=== PATIENT | female | born 1955 | race Caucasian/White ===

== ENCOUNTER 2019-05-02 09:36 | Outpatient (CLI) | payer OTHER, SELFPAY ==
[2019-05-02 10:26] LABS: Alveolar/Arterial O2 Gradient 20.6 mmHg; Base Excess ABG 9.6 mEq/l (+/-2.0); Device ROOM AIR; Fractional Inspired Oxygen 21 %; Modified Allen's Test Pass; Oxygen Content ABG 16.4 %vol (16.0-22.0); Oxygen Saturation ABG 91.5 % (95.0-100.0); Oxyhemoglobin 89.1 % THb (90.0-100.0); PCO2 ABG 56.5 mmHg (35.0-45.0); PO2 ABG 61.5 mmHg (80.0-100.0); PO2 FiO2 Ratio Arterial Blood 2.93 %; Site Drawn LEFT RADIAL; Total Hemoglobin 13.1 g/dL (12.0-18.0); pH ABG 7.422 (7.350-7.450)
--- NOTE | 2019-05-02 15:54 | P.PCNPFT_ITS ---
PFT Interpretation PFT Interpretation: DOS: 05/02/2019 REQUESTING: Dr. Delacruz REASON FOR TESTING: Shortness of breath PULMONARY FUNCTION TESTS The results were reproducible. She was unable to complete lung volumes. Patient did all testing to the best of her ability. Spirometry: Severe decrease in FEV1 41%, FVC 40%, with normal FEV1%. DSH20-58% extremely severely reduced at 20% predicted. There is a significant increase in small airways with bronchodilator, 69% in small airways. THere was a non- statistically significant increase in FEV1 11%. Lung volumes: Not able to be obtained. Diffusion: DLCO is 44%, severely decreased. Flow volume loop: Restrictive pattern. IMPRESSION: Severe restriction based on low FVC 40% and normal FEV1%; lung volumes not obtainable with a small airways pattern. Moderately decreased DLCO. May have mixed restrictive and obstructive processes. ABG on room air: pH 7.422; pCO2 56.5; pO2 61.5; HCO3 36; saturation 91.5%. Hemoglobin 13.1 g/dL. Ann Delacruz MD
== END 2019-05-02 09:37 | disposition home or self-care (01) ==
PROVIDERS: Visit Provider Internal Medicine Critical Care Medicine
DX: J44.9 Chronic obstructive pulmonary disease, unspecified (principal); R94.2 Abnormal results of pulmonary function studies
CPT/HCPCS: 36600; 82805; 94060; 94729

== ENCOUNTER 2020-01-17 06:52 | Outpatient (NON) | payer BC, SELFPAY ==
[2020-01-17 22:15] LABS: SARS-CoV-2 RNA PCR Negative
== END 2020-01-17 06:53 ==
PROVIDERS: PCP Family Medicine; Visit Provider Family Medicine
DX: Z20.828 Contact with and (suspected) exposure to other viral communicable diseases (principal); R52 Pain, unspecified; R50.9 Fever, unspecified; R06.02 Shortness of breath
CPT/HCPCS: 87635; C9803; U0003

== ENCOUNTER 2020-04-05 12:34 | Outpatient (CLI) | payer BC, SELFPAY ==
[2020-04-05 13:16] LABS: Alveolar/Arterial O2 Gradient 19.1 mmHg; Base Excess ABG 7.3 mEq/l (+/-2.0); Fractional Inspired Oxygen 21 %; HCO3 ABG 34.6 mEq/l (22.0-26.0); Oxygen Content ABG 17.1 %vol (16.0-22.0); Oxygen Saturation ABG 88.8 % (95.0-100.0); Oxyhemoglobin 89.5 % THb (90.0-100.0); PO2 ABG 58.1 mmHg (80.0-100.0); PO2 FiO2 Ratio Arterial Blood 2.77 %; Total Hemoglobin 13.6 g/dL (12.0-18.0); pH ABG 7.374 (7.350-7.450)
[2020-04-05 13:18] LABS: PCO2 ABG 60.6 mmHg (35.0-45.0)
[2020-04-05 13:19] LABS: Device ROOM AIR; Modified Allen's Test Pass; Site Drawn RIGHT RADIAL
== END 2020-04-05 12:35 | disposition home or self-care (01) ==
LOC: ANHPFT 12:35
PROVIDERS: PCP Family Medicine; Visit Provider Nurse Practitioner Family
DX: J96.11 Chronic respiratory failure with hypoxia (principal); J96.12 Chronic respiratory failure with hypercapnia
CPT/HCPCS: 36600; 82805

== ENCOUNTER 2020-04-06 14:42 | Outpatient (CLI) | payer BC, SELFPAY ==
--- NOTE | ~2020-04-06 | CT_ITS ---
EXAMINATION: CT lung screening EXAM DATE: 04/06/2020 15:14 INDICATION: Z87.891 - Personal history of nicotine dependence. TECHNIQUE: Spiral low dose CT of the chest without contrast. Axial, coronal and sagittal images were reviewed. The dose-length product (DLP) for this examination was 239.40 mGy-cm. The exposure was t ailored according to patient size (auto mA exposure control), and iterative reconstruction (ASIR) was used as additional dose reduction technique. Comparison is made to prior examination from 12/20/2018. FINDINGS: There is elevated right hemidiaphragm which could indicate paralysis. Subsegmental right b asilar, subsegmental left lower lobe atelectasis. Tracheobronchial tree is patent. There is no med iastinal, hilar or axillary lymphadenopathy. There are no pleural or pericardial effusions. There is no pneumothorax. Heart normal in size. There is mild coronary arterial calcification, arteria l sclerosis. Upper abdomen is unremarkable. There is moderate thoracic spondylosis without osteobla stic or osteolytic lesions identified. There is mild to moderate cervicothoracic scoliosis. IMPRESSION: Lung-RADS category 1, negative (<1%chance of malignancy); recommend continued LDCT screen ing in 1 year. > Reviewed, dictated and finalized at location A. CTICIDE SUPERVISOR IMPRESSION: Lung-RADS category 1, negative (<1%chance of malignancy); recommend continued LDCT screening in 1 year. >
== END 2020-04-06 14:43 | disposition home or self-care (01) ==
PROVIDERS: PCP Family Medicine; Visit Provider Nurse Practitioner Family
DX: Z12.2 Encounter for screening for malignant neoplasm of respiratory organs (principal); Z87.891 Personal history of nicotine dependence
CPT/HCPCS: 71271

== ENCOUNTER 2020-04-12 12:24 | Outpatient (CLI) | payer BC, SELFPAY ==
[2020-04-12 12:45] VITALS: PULSE 87; O2SAT 95
[2020-04-12 12:50] VITALS: PULSE 102; O2SAT 90
[2020-04-12 13:05] VITALS: PULSE 88; O2SAT 94
--- NOTE | 2020-04-12 13:18 | HOMEO2EVAL ---
Home Oxygen Evaluation RC: Home Oxygen (O2) Evaluation Start: 04/12/20 13:10 Freq: Status: Active Protocol: RPE Activity Type Activity Date Activity User E-Sign Co-Sign Detail Recorded Client Recorded Date Recorded By Document 04/12/20 12:45 DJO [email or web address] 04/12/20 13:15 DJO Document 04/12/20 13:05 DJO [email or web address] 04/12/20 13:15 DJO 04/12/20 04/12/20 12:45 13:05 Home O2 Evaluation Test Phase Resting Resting Oxygen Delivery Room Air Room Air Pulse Oximetry (90-100 %) 95 94 Pulse Rate (60-100 beats/min) 87 88 Treatment Charges O2 Evaluation
== END 2020-04-12 12:25 | disposition home or self-care (01) ==
PROVIDERS: PCP Family Medicine; Visit Provider Nurse Practitioner Family
DX: J44.9 Chronic obstructive pulmonary disease, unspecified (principal)
CPT/HCPCS: 94618

== ENCOUNTER → 2020-10-24 11:08 | Outpatient (CLI) | payer MEDICARE, SELFPAY ==
--- NOTE | ~2020-10-24 | CT_ITS ---
EXAMINATION: CT abdomen pelvis w con INDICATION: Abdominal pain and cramping TECHNIQUE: Computed tomographic images of the abdomen and pelvis were obtained after the administrati on of 100 cc of Omnipaque 350 intravenous contrast. The dose-length product (DLP) was 1143.35 mGy-cm. Automated exposure control and iterative reconstruction technique were employed. COMPARISON: 06/13/2015 FINDINGS: Minimal dependent atelectasis is present in the lung bases. The heart size is normal. There is elevation of the right hemidiaphragm. The liver, pancreas, and adrenal glands are normal. Stones are present in the nondistended gallbladder. There is a 3 cm cyst of the left kidney. The right kidne y is unremarkable. A circumaortic left renal vein is noted. No pathologically enlarged abdominal or p elvic lymph nodes are identified. There is no free intraperitoneal gas or evidence of bowel obstructi on. The appendix is normal. There is severe lumbar spondylosis. IMPRESSION: 1. No CT correlate for the patient's symptoms. Reviewed, dictated and finalized at location A.
[2020-10-24 11:31] LABS: Estimated Glomerular Filt Rate 41
== END ==
PROVIDERS: PCP Family Medicine; Visit Provider Physician Assistant
DX: R10.9 Unspecified abdominal pain (principal); R19.8 Other specified symptoms and signs involving the digestive system and abdomen
CPT/HCPCS: 74177; Q9967

== ENCOUNTER 2020-11-28 02:30 | Day surgery (SDC) | payer MEDICARE, SELFPAY ==
[2020-11-14 14:27] VITALS: BMI 42.2
[2020-11-28 09:39] VITALS: BP 151/97; PULSE 94; RESP 24; TEMP 36; O2SAT 98; BMI 41.2
--- NOTE | 2020-11-28 09:40 | WPDHPUPDATE1 ---
History and Physical Update Update Date/Time: 11/28/20 09:40 History and Physical has been reviewed, including an updated exam of the patient. There are NO changes in the patient's condition. Risks, benefits, and alternatives have been discussed and questions answered. Patient agrees to proceed with procedure.
[2020-11-28] MEDS: LACTATED RINGERS 1,000 ML 150 ML IV CONT (09:49)
--- NOTE | 2020-11-28 09:59 | WPDANESEPPF ---
Anes - Initial Pre Proc Eval Procedure: Operation Date: 11/28/20 10:30 Proposed Procedures p Colonoscopy - Jacob Lowery MD Date/Time: 11/28/20 09:59 Surgeon: Jacob Lowery MD Pre Op Diagnosis: abdominal pain, hx of colon polyps Patient Data Age: 65 Gender: F Height: 1.52 m Weight: 95.7 kg Last Vital Signs Temp 96.8 F L 11/28/20 09:39 Pulse 94 11/28/20 09:39 Resp 24 H 11/28/20 09:39 BP 151/97 H 11/28/20 09:39 Pulse Ox 98 11/28/20 09:39 Allergies Allergy/AdvReac Type Severity Reaction Status Date / Time adhesive tape Allergy Mild RASH Verified 11/28/20 09:37 diazepam Allergy Unknown Unknown Verified 11/28/20 09:37 pimecrolimus Allergy Unknown Skin Verified 11/28/20 09:37 Reaction salmeterol Allergy Unknown Unknown Verified 11/28/20 09:37 Home Medications Medication Instructions Recorded Confirmed Type pregabalin 75 mg capsule 150 mg PO BID #120 cap 03/02/19 03/24/19 Rx metoprolol tartrate 100 mg tablet 100 mg PO Q12H #180 tablet 12/16/19 11/14/20 Rx fluticasone propionate 50 2 spray INTRANASAL DAILY PRN #15.8 01/22/20 11/14/20 Rx mcg/actuation nasal ml spray,suspension apixaban 5 mg tablet 5 mg PO BID #180 tablet 04/13/20 11/14/20 Rx theophylline 400 mg 200 mg PO Q12H #90 tablet 07/02/20 11/14/20 Rx tablet,extended release 24 hr montelukast 10 mg tablet See Rx Instructions .ROUTE 07/30/20 11/14/20 Rx .COMPLEX #90 tablet nystatin 100,000 unit/gram topical 1 applic TOPICAL TID #60 g 08/16/20 11/14/20 Rx powder albuterol sulfate 2.5 mg INHALATION TID #270 vial 08/31/20 11/14/20 Rx furosemide 40 mg tablet See Rx Instructions .ROUTE 09/04/20 11/14/20 Rx .COMPLEX #90 tablet nystatin 100,000 unit/gram topical 1 applic TOPICAL BID #30 g 10/15/20 11/14/20 Rx cream triamcinolone acetonide 0.1 % 1 applic TOPICAL BID #80 g 10/15/20 11/14/20 Rx topical ointment budesonide-formoterol HFA 160 2 puff INHALATION Q12H #10.2 gm 10/16/20 11/14/20 Rx mcg-4.5 mcg/actuation aerosol inhaler pantoprazole 40 mg tablet,delayed See Rx Instructions .ROUTE 10/25/20 11/14/20 Rx release .COMPLEX #90 tablet hyoscyamine sulfate 0.125 mg tablet 0.125 mg PO TID PRN #60 tablet 10/29/20 11/14/20 Rx potassium chloride 20 mEq See Rx Instructions .ROUTE 11/06/20 11/14/20 Rx tablet,extended release(part/cryst) .COMPLEX #180 tablet guaifenesin [Mucus Relief ER] 600 mg PO DAILY 11/14/20 11/14/20 History polyethylene glycol 3350 [Miralax] 17 g PO DAILY 11/14/20 11/14/20 History cyclobenzaprine 10 mg tablet See Rx Instructions .ROUTE 11/16/20 Rx .COMPLEX #180 tablet Patient hx anesthesia problems: none Family hx anesthesia problems: none PMFSH Past Medical History Medical History Angina at rest Arthritis Benign positional vertigo Cataracts, bilateral Maturing CHF (congestive heart failure) Diastolic with EF of 55% on last echocardiogram August 2016 Chronic respiratory failure with hypoxia and hypercapnia Chronic respiratory failure with hypoxia, on home O2 therapy Due to right hemidiaphragm paralysis for 11 years, obstructive sleep apnea, PFTs 2012 demonstrating moderate restrictive and severe obstructive disease without bronchodilator response Duodenal ulcer DVT (deep venous thrombosis) Bilateral lower extremity November 2018 GERD (gastroesophageal reflux disease) Hepatic steatosis Hiatal hernia History of esophageal spasm History of paroxysmal supraventricular tachycardia Hypertension IBS (irritable bowel syndrome) Mitral valve prolapse Ovarian cyst Periodontal disease Peripheral neuropathy Pneumonia Pulmonary emboli Extensive acute pulmonary emboli November 2018 Pulmonary hypertension Suggested by CT findings October 2018 Rectal polyp Scoliosis Sinus problem Spinal stenosis Tobacco abuse Type 2 diabetes mellitus UTI (urinary tract infection) Surgical History Surgical History (Reviewed 10/29/20 @ 15:1
[2020-11-28 10:44] VITALS: BP 121/73; PULSE 75; RESP 18; O2SAT 100
[2020-11-28 10:54] VITALS: BP 146/90; PULSE 74; RESP 18; O2SAT 100
[2020-11-28 11:04] VITALS: BP 156/100; PULSE 73; RESP 18; O2SAT 100
== END 2020-11-28 11:18 | disposition home or self-care (01) ==
PROVIDERS: PCP Family Medicine; Visit Provider Internal Medicine Gastroenterology
PROC: 0DJD8ZZ Inspection of Lower Intestinal Tract, Via Natural or Artificial Opening Endoscopic (ICD-10-PCS; CPT 45378; principal; 2020-11-28 10:30)
DX: Z12.11 Encounter for screening for malignant neoplasm of colon (principal); D12.5 Benign neoplasm of sigmoid colon; K57.30 Diverticulosis of large intestine without perforation or abscess without bleeding; R10.84 Generalized abdominal pain; I11.0 Hypertensive heart disease with heart failure; I50.9 Heart failure, unspecified; J96.12 Chronic respiratory failure with hypercapnia; J96.11 Chronic respiratory failure with hypoxia; E11.40 Type 2 diabetes mellitus with diabetic neuropathy, unspecified; Z99.81 Dependence on supplemental oxygen; K21.9 Gastro-esophageal reflux disease without esophagitis; K58.9 Irritable bowel syndrome, unspecified; I34.1 Nonrheumatic mitral (valve) prolapse; Z86.718 Personal history of other venous thrombosis and embolism; Z87.11 Personal history of peptic ulcer disease; Z79.01 Long term (current) use of anticoagulants; Z79.51 Long term (current) use of inhaled steroids; Z87.891 Personal history of nicotine dependence; E66.01 Morbid (severe) obesity due to excess calories; Z68.41 Body mass index [BMI] 40.0-44.9, adult
CPT/HCPCS: 45385; 88305; J2704; J7120

== ENCOUNTER 2021-06-05 12:18 | Outpatient (CLI) | payer MEDICARE, SELFPAY ==
[2021-06-05 12:45] VITALS: PULSE 95; O2SAT 92
[2021-06-05 12:50] VITALS: PULSE 102; O2SAT 86
[2021-06-05 12:55] VITALS: PULSE 105; O2SAT 88
[2021-06-05 13:00] VITALS: PULSE 109; O2SAT 90
[2021-06-05 13:10] VITALS: PULSE 94; O2SAT 91
--- NOTE | 2021-06-05 13:21 | HOMEO2EVAL ---
Evaluation was performed at [facility] Home Oxygen Evaluation RC: Home Oxygen (O2) Evaluation Start: 06/05/21 13:18 Freq: Status: Active Protocol: RPE Activity Type Activity Date Activity User E-Sign Co-Sign Detail Recorded Client Recorded Date Recorded By Document 06/05/21 12:45 DJO [email or web address] 06/05/21 13:21 DJO Document 06/05/21 12:50 DJO [email or web address] 06/05/21 13:21 DJO Document 06/05/21 12:55 DJO [email or web address] 06/05/21 13:21 DJO Document 06/05/21 13:00 DJO [email or web address] 06/05/21 13:21 DJO Document 06/05/21 13:10 DJO [email or web address] 06/05/21 13:21 DJO 06/05/21 06/05/21 06/05/21 12:45 12:50 12:55 Home O2 Evaluation Test Phase Resting Exercise Exercise Oxygen Delivery Room Air Room Air Nasal Cannula Oxygen Flow Rate (L/min) 1 Pulse Oximetry (90-100 %) 92 86 L 88 L Pulse Rate (60-100 beats/min) 95 102 H 105 H Activity Tolerance Ambulation Distance (feet) Ambulation Distance (meters) Treatment Charges O2 Evaluation - Outpatient 06/05/21 06/05/21 13:00 13:10 Home O2 Evaluation Test Phase Exercise Resting Oxygen Delivery Nasal Cannula Room Air Oxygen Flow Rate (L/min) 2 Pulse Oximetry (90-100 %) 90 91 Pulse Rate (60-100 beats/min) 109 H 94 Activity Tolerance Good Ambulation Distance (feet) 500 Ambulation Distance (meters) 152.39 Treatment Charges
== END 2021-06-05 12:19 | disposition home or self-care (01) ==
LOC: ANHPFT 12:21
PROVIDERS: PCP Family Medicine; Visit Provider Internal Medicine Critical Care Medicine
DX: J96.11 Chronic respiratory failure with hypoxia (principal); J96.12 Chronic respiratory failure with hypercapnia; Z87.891 Personal history of nicotine dependence
CPT/HCPCS: 71271; 94618

== ENCOUNTER 2021-06-05 12:25 | Outpatient (CLI) | payer MEDICARE, SELFPAY ==
--- NOTE | ~2021-06-05 | CT_ITS ---
EXAMINATION:CT lung screening DATE: 06/05/2021 13:34 INDICATION: Personal history of nicotine dependence. Smoker who quit 5 years ago with 30 pack year hi story. TECHNIQUE: Computed tomography (CT) of the chest was performed without intravenous contrast. Automate d exposure control and iterative reconstruction technique were employed. The dose-length product (DLP ) was 260.81 mGy-cm. COMPARISON: Chest CT 04/06/2020 FINDINGS: There is chronic marked elevation of right hemidiaphragm. There is mild atelectasis at righ t lung base. There is mild atelectasis in inferior left lung. No pleural effusion. The heart size is normal. No pericardial effusion. Partially visualized is a 3.4 cm cyst in left kidney. There is sever e thoracic spondylosis. There is a chronic mild compression fracture of T3. IMPRESSION: 1. Lung-RADS category 1: Negative. Continue annual screening with noncontrast low-dose chest CT in 12 months. Reviewed, dictated and finalized at location A. NCE MANAGER IMPRESSION: 1. Lung-RADS category 1: Negative. Continue annual screening with noncontrast l ow-dose chest CT in 12 months.
== END 2021-06-05 12:26 | disposition home or self-care (01) ==
LOC: ANHIMG 12:26
PROVIDERS: PCP Family Medicine; Visit Provider Internal Medicine Critical Care Medicine
DX: Z12.2 Encounter for screening for malignant neoplasm of respiratory organs (principal); Z87.891 Personal history of nicotine dependence
CPT/HCPCS: 71271

== ENCOUNTER → 2021-07-24 10:02 | Outpatient (CLI) | payer MEDICARE, SELFPAY ==
--- NOTE | ~2021-07-24 | XR_ITS ---
XR ankle RT min 3V DATE: 07/24/2021 10:14 INDICATION: Right ankle pain TECHNIQUE: 4 views COMPARISON: None FINDINGS: Diffuse osteopenia. Plantar and posterior calcaneal enthesopathy. No fracture or dislocation of the ankle or disruption of the ankle mortise. No periosteal reaction or bone destruction. Osteoarthritic change at the tarsal and tarsometatarsal joints. IMPRESSION: Osteopenia Osteoarthritis intertarsal and tarsometatarsal joints Plantar and posterior calcaneal enthesopathy Reviewed, dictated and finalized at location A.
== END ==
PROVIDERS: PCP Family Medicine; Visit Provider Family Medicine
DX: M85.871 Other specified disorders of bone density and structure, right ankle and foot (principal); M19.071 Primary osteoarthritis, right ankle and foot; M77.31 Calcaneal spur, right foot
CPT/HCPCS: 73610

== ENCOUNTER 2022-01-10 09:10 | Emergency (ER) | payer MEDICARE, SELFPAY ==
--- NOTE | ~2022-01-10 | CT_ITS ---
EXAMINATION: CT abdomen pelvis w con DATE: 01/10/2022 10:53 INDICATION: Abdominal pain. Nausea and vomiting. TECHNIQUE: Computed tomography (CT) of the abdomen and pelvis was performed with 100 mL Omnipaque 350 intravenous contrast. Automated exposure control and iterative reconstruction technique were employe d. The dose-length product was 1700.24 mGy-cm. COMPARISON: CT abdomen and pelvis 10/24/2020 FINDINGS: The visualized portions of the lung bases demonstrate mild atelectasis. There is chronic ma rked elevation of right hemidiaphragm. No pleural effusion. The heart size is normal. No pericardial effusion. The liver, gallbladder, spleen, pancreas, and adrenal glands are normal. There is cortical thinning of the kidneys. There is a 3.1 cm cyst in left kidney. There is diverticulosis of the colon without evidence of diverticulitis. There are no dilated loops of bowel. There is a large volume of s tool in the colon. The appendix is not visualized. There are no pathologically enlarged lymph nodes. There is no free intraperitoneal fluid. There is severe thoracic spondylosis and moderate lumbar spon dylosis. IMPRESSION: 1. Chronic marked elevation of right hemidiaphragm. Reviewed, dictated and finalized at location A.
--- NOTE | ~2022-01-10 | XR_ITS ---
EXAMINATION: XR chest 2V DATE: 01/10/2022 11:33 INDICATION: Chest and abdominal discomfort. TECHNIQUE: Frontal and lateral views of the chest were obtained. COMPARISON: Chest 2 views 03/24/2019, CT abdomen and pelvis 01/10/2022 FINDINGS: There is marked in elevation of right hemidiaphragm. There is mild atelectasis at right maria del rosario g base. No pleural effusion or pneumothorax. The heart size is normal. IMPRESSION: 1. Chronic marked elevation of right hemidiaphragm. 2. Mild atelectasis at right lung base. Reviewed, dictated and finalized at location A.
--- NOTE | 2022-01-10 09:19 | ECG_ITS ---
Measurements Intervals [place] Rate: 70 P: 59 [place]: 153 QRS: 52 QRSD: 130 T: 89 QT: 394 QTc: 427 Interpretive Statements SINUS RHYTHM NONSPECIFIC T-WAVE ABNORMALITY COMPARED TO ECG 03/08/2019 10:00:18 ST AND T ABNORMALITY IS IMPROVED Electronically Signed On 01-10-2022 15:39:22 CDT by Domingo Velazquez M.D.
[2022-01-10 09:23] VITALS: BP 157/87; PULSE 69; RESP 28; TEMP 36.6; O2SAT 98
--- NOTE | 2022-01-10 09:39 | ED.CHESTPAIN ---
HPI - Chest Pain General Chief Complaint: Chest Pain <DEONDRE Sage Last Filed: 01/10/22 17:12> Stated Complaint: abd pain/chest pain <DEONDRE Sage Last Filed: 01/10/22 17:12> Time Seen by Provider: 01/10/22 09:21 <DEONDRE Sage Last Filed: 01/10/22 17:12> Source: patient <DEONDRE Sage Last Filed: 01/10/22 17:12> Mode of arrival: ambulatory <DEONDRE Sage Last Filed: 01/10/22 17:12> Limitations: no limitations <DEONDRE Sage Last Filed: 01/10/22 17:12> History of Present Illness HPI narrative: Patient is a 66 y/o female who presents to the ED with c/o pain in her upper abdomen/lower chest. Patient reports she was woken up from sleep around 2:30 AM this morning with pain diffusely across her upper abdomen/lower chest, wrapping around to her mid back. She states it feels like there is a band around her upper abdomen. She tried taking a Pepcid, which did provide minimal relief. She has not tried anything else for her symptoms. She states she has had similar pain before but never was diagnosed with anything. Denies any nausea, vomiting, but does report having an episode of emesis with coughing earlier this week. Denies any worsening shortness of breath, does have COPD. Denies fever, diarrhea, constipation, dysuria, hematuria. Patient is on Eliquis due to history of PEs. <DEONDRE Sage Last Filed: 01/10/22 17:12> Related Data Home Medications: Home Medications Medication Instructions Recorded Confirmed guaifenesin 600 mg tablet, 600 mg PO DAILY 11/14/20 01/08/22 extended release 12 hr (Mucus Relief ER) polyethylene glycol 3350 17 gram 17 g PO DAILY 11/14/20 01/08/22 oral powder packet (Miralax) cyanocobalamin (vitamin B-12) 2,500 mcg sublingual DAILY 05/14/21 01/08/22 2,500 mcg sublingual tablet (Vitamin B-12) <Cheryl Greene PA-C - Last Filed: 01/10/22 17:12> Allergies/Adverse Reactions: Allergies Allergy/AdvReac Type Severity Reaction Status Date / Time adhesive tape Allergy Mild RASH Verified 01/10/22 09:25 diazepam Allergy Unknown Unknown Verified 01/10/22 09:25 pimecrolimus Allergy Unknown Skin Verified 01/10/22 09:25 Reaction salmeterol Allergy Unknown Unknown Verified 01/10/22 09:25 <Cheryl Greene PA-C - Last Filed: 01/10/22 17:12> Review of Systems Review of Systems: CONSTITUTIONAL: Denies fever, chills, or sweats. CARDIOVASCULAR: Reports pain across lower chest. Denies edema. RESPIRATORY: Reports cough. Denies dyspnea. GASTROINTESTINAL: Reports pain/band across upper abdomen. Denies nausea, vomiting, constipation, or diarrhea. GENITOURINARY: Denies dysuria or hematuria. MUSCULOSKELETAL: Reports pain around to mid back. <Cheryl Greene PA-C - Last Filed: 01/10/22 17:12> All systems reviewed & are unremarkable except as noted in HPI and below <Cheryl Greene PA-C - Last Filed: 01/10/22 17:12> [facility] Past Medical History Medical History: Medical History Angina at rest Arthritis Benign positional vertigo Cataracts, bilateral Maturing CHF (congestive heart failure) Diastolic with EF of 55% on last echocardiogram August 2016 Chronic respiratory failure with hypoxia and hypercapnia Chronic respiratory failure with hypoxia, on home O2 therapy Due to right hemidiaphragm paralysis for 11 years, obstructive sleep apnea, PFTs 2012 demonstrating moderate restrictive and severe obstructive disease without bronchodilator response Duodenal ulcer DVT (deep venous thrombosis) Bilateral lower extremity November 2018 GERD (gastroesophageal reflux disease) Hepatic steatosis Hiatal hernia History of esophageal spasm History of paroxysmal supraventricular tachycardia Hypertension IBS (irritable bowel syndrome) Mitral valve prolapse Ovarian cyst Elis
[2022-01-10 10:00] VITALS: PULSE 61
[2022-01-10 10:17] LABS: Basophils Absolute Auto 0.1 K/mm3 (0.0-0.1); Basophils Percent Auto 0.8 % (0.2-1.2); Eosinophils Absolute Auto 0.3 K/mm3 (0-0.3); Eosinophils Percent Auto 4.1 % (0-4.4); Hematocrit 41.1 % (37.0-47.0); Hemoglobin 12.7 g/dL (12.0-15.0); Immature Granulocyte Absolute 0.03 K/mm3 (0.00-0.031); Immature Granulocyte Percent A 0.4 % (0-0.5); Lymphocytes Absolute Auto 1.52 K/mm3 (0.9-3.2); Lymphocytes Percent Auto 21.5 % (18.3-44.2); Mean Corpuscular HGB Conc 30.9 g/dl (32-36); Mean Corpuscular Hemoglobin 27.8 pg (26-34); Mean Corpuscular Volume 89.9 fl (80-100); Mean Platelet Volume 9.7 fl (7.4-10.4); Monocytes Absolute Auto 0.6 K/mm3 (0.1-0.6); Monocytes Percent Auto 8.6 % (2.6-8.5); Neutrophils Absolute Auto 4.6 K/mm3 (1.3-6.7); Neutrophils Percent Auto 64.6 % (45.5-73.1); Platelet Count Result 251 k/mm3 (150-375); Red Blood Count 4.57 M/mm3 (4.2-5.4); Red Cell Distribution Width 14.8 % (11.5-14.5); White Blood Count 7.1 K/mm3 (4.5-10.0)
[2022-01-10 10:21] LABS: Alanine Aminotransferase 18 U/L (6-35); Albumin Level 4.2 g/dL (3.5-5.1); Alkaline Phosphatase 131 U/L (38-126); Anion Gap 10 mmol/L (8-16); Aspartate Amino Transferase 22 U/L (14-36); Bilirubin,Total 0.6 mg/dL (0.2-1.3); Blood Urea Nitrogen 18 mg/dL (7-17); Calcium 9.4 mg/dL (8.4-10.2); Carbon Dioxide 35 mmol/L (22-30); Chloride 95 mmol/L (98-107); Estimated CRCL calculation 51 ml/min; Estimated Glomerular Filt Rate 55; Glucose 117 mg/dL (65-110); Lipase 57 U/L (23-300); Potassium 4.3 mmol/L (3.4-5.0); Sodium 140 mmol/L (137-145)
[2022-01-10 10:24] LABS: INR 1.4; Partial Thromboplastin Time 30.8 SECONDS (22.3-36.8); Prothrombin Time 16.8 Seconds (11.1-14.7)
[2022-01-10 10:33] LABS: Troponin I < 0.012 ng/mL (0.000-0.034)
[2022-01-10 10:45] VITALS: BP 158/82; PULSE 78; RESP 20; O2SAT 99
[2022-01-10 11:09] LABS: Add Urine Microscopic? YES; Appearance Urine Clear (Clear); Bacteria Urine Trace /hpf; Bilirubin Urine Negative (Negative); Blood Urine Negative (Negative); Color Urine Yellow (Yellow); Glucose Urine UA Negative (Negative); Ketones Urine Negative (Negative); Leukocyte Esterase Ur 2+ LEU/UL (Negative); Mucus Urine Rare /lpf; Nitrate Urine Negative (Negative); Protein Urine Negative (Negative); RBC Urine 0-2 /hpf (0-2); Specific Grav Ur 1.006 (1.001-1.035); Urobilinogen Urine Negative mg/dL (<2.0); WBC Urine 21-30 /hpf
[2022-01-10 11:52] VITALS: BP 167/90; PULSE 76; RESP 20; O2SAT 97
[2022-01-10 13:18] LABS: Troponin I < 0.012 ng/mL (0.000-0.034)
[2022-01-10] MEDS: BELLADONNA ALK/PHENOB ELIX 10 ML, MAG HYDROX/ALUMINUM HYD/SIMETH 30 ML, LIDOCAINE HCL 2... PO (13:50)
[2022-01-10 14:30] VITALS: BP 166/87; PULSE 87; RESP 20; O2SAT 98
== END 2022-01-10 14:31 | disposition home or self-care (01) ==
PROVIDERS: Physician Assistant; Emergency Provider Emergency Medicine
DX: N30.00 Acute cystitis without hematuria (principal); R10.13 Epigastric pain; J44.9 Chronic obstructive pulmonary disease, unspecified; J96.11 Chronic respiratory failure with hypoxia; I50.30 Unspecified diastolic (congestive) heart failure; E11.42 Type 2 diabetes mellitus with diabetic polyneuropathy; I11.0 Hypertensive heart disease with heart failure; I34.1 Nonrheumatic mitral (valve) prolapse; K21.9 Gastro-esophageal reflux disease without esophagitis; K58.9 Irritable bowel syndrome, unspecified; H26.9 Unspecified cataract; Z99.81 Dependence on supplemental oxygen; Z96.651 Presence of right artificial knee joint; Z86.718 Personal history of other venous thrombosis and embolism; Z87.01 Personal history of pneumonia (recurrent); Z86.711 Personal history of pulmonary embolism; Z87.19 Personal history of other diseases of the digestive system; Z87.440 Personal history of urinary (tract) infections; Z87.891 Personal history of nicotine dependence; Z79.01 Long term (current) use of anticoagulants; R94.31 Abnormal electrocardiogram [ECG] [EKG]
CPT/HCPCS: 36415; 71046; 74177; 80053; 81001; 83690; 84484; 85025; 85610; 85730; 87077; 87086; 87186; 93005; 96365; 99284; A9270; J0131; Q9967

== ENCOUNTER 2022-02-05 10:29 | Outpatient (CLI) | payer MEDICARE, SELFPAY ==
[2022-02-05 19:08] LABS: Alanine Aminotransferase 21 U/L (6-35); Albumin Level 4.5 g/dL (3.5-5.1); Alkaline Phosphatase 150 U/L (38-126); Anion Gap 12 mmol/L (8-16); Aspartate Amino Transferase 28 U/L (14-36); Bilirubin,Total 0.6 mg/dL (0.2-1.3); Blood Urea Nitrogen 29 mg/dL (7-17); Calcium 9.7 mg/dL (8.4-10.2); Carbon Dioxide 33 mmol/L (22-30); Chloride 93 mmol/L (98-107); Cholesterol 156 mg/dL (0-200); Estimated Glomerular Filt Rate 55; Glucose 119 mg/dL (65-110); HDL Direct 38 mg/dL; Sodium 138 mmol/L (137-145); Triglycerides 250 mg/dL (<150)
[2022-02-05 19:19] LABS: LDL Cholesterol Direct 50 mg/dL
[2022-02-05 19:29] LABS: Hemoglobin A1C 6.5 % (<5.7)
== END 2022-02-05 10:30 | disposition home or self-care (01) ==
LOC: ANHGOSHLAB 10:34
PROVIDERS: PCP Internal Medicine; Visit Provider Physician Assistant
DX: E78.2 Mixed hyperlipidemia (principal); R73.01 Impaired fasting glucose
CPT/HCPCS: 36415; 80053; 80061; 83036

== ENCOUNTER 2022-02-25 12:33 | Outpatient (CLI) | payer MEDICARE, SELFPAY ==
[2022-02-25 20:39] LABS: Appearance Urine Clear (Clear); Bilirubin Urine Negative (Negative); Blood Urine Trace-intact (Negative); Color Urine Yellow (Yellow); Glucose Urine UA Negative (Negative); Ketones Urine Negative (Negative); Leukocyte Esterase Ur Negative LEU/UL (Negative); Nitrate Urine Positive (Negative); Protein Urine Negative (Negative); Specific Grav Ur 1.015 (1.001-1.035); Urobilinogen Urine 0.2 mg/dL (<2.0); pH Urine 6.5 (5.0-9.0)
[2022-02-25 20:50] LABS: RBC Urine 0-2 /hpf (0-2); Squamous Epithelial Cell Urine Rare /hpf (Few)
[2022-02-25 20:53] LABS: Add Urine Microscopic? YES
== END 2022-02-25 12:34 | disposition home or self-care (01) ==
LOC: ANHGOSHLAB 12:38
PROVIDERS: PCP Emergency Medicine; Visit Provider Emergency Medicine
DX: R30.0 Dysuria (principal)
CPT/HCPCS: 81001

== ENCOUNTER 2022-04-30 12:12 | Outpatient (CLI) | payer MEDICARE, SELFPAY ==
--- NOTE | ~2022-04-30 | XR_ITS ---
EXAMINATION: XR abdomen/kub 1V DATE: 04/30/2022 12:56 INDICATION: Unspecified abdominal pain. TECHNIQUE: A supine view of the abdomen on 2 radiographs was obtained. COMPARISON: CT abdomen and pelvis 01/10/2022 FINDINGS: There are no dilated loops of bowel. There is stool in the right colon. There is a calcifie d fibroid in the pelvis. IMPRESSION: 1. Normal bowel gas pattern. Reviewed, dictated and finalized at location A. MOBILE DAMAGE FIELD APPRAISER
[2022-04-30 14:06] LABS: Appearance Urine Clear (Clear); Bilirubin Urine Negative (Negative); Blood Urine Negative (Negative); Color Urine Yellow (Yellow); Glucose Urine UA Negative (Negative); Ketones Urine Negative (Negative); Leukocyte Esterase Ur 1+ LEU/UL (Negative); Nitrate Urine Negative (Negative); Protein Urine Negative (Negative); Urobilinogen Urine 0.2 mg/dL (<2.0); pH Urine 6.5 (5.0-9.0)
[2022-04-30 14:26] LABS: Mucus Urine Rare /lpf; RBC Urine 0-2 /hpf (0-2); Squamous Epithelial Cell Urine Rare /hpf (Few)
[2022-04-30 14:31] LABS: Add Urine Microscopic? YES
== END 2022-04-30 12:13 | disposition home or self-care (01) ==
PROVIDERS: PCP Emergency Medicine; Visit Provider Nurse Practitioner
DX: R10.9 Unspecified abdominal pain (principal); K59.00 Constipation, unspecified; R14.0 Abdominal distension (gaseous)
CPT/HCPCS: 74018; 81001

== ENCOUNTER → 2022-05-14 11:16 | Outpatient (CLI) | payer MEDICARE, SELFPAY ==
--- NOTE | ~2022-05-14 | US_ITS ---
EXAMINATION: US pelvic complete w TV DATE: 05/14/2022 11:43 INDICATION: D25.9 - Leiomyoma of uterus, unspecified TECHNIQUE: Multiple transabdominal and endovaginal sonographic images of the pelvis were obtained. COMPARISON: 09/05/2005; CT abdomen and pelvis 01/10/2022 and 10/24/2020. FINDINGS: Uterus: 5.2 x 2.9 x 4.1 cm. Endometrial complex measures 5 mm, with a thin collection of endometrial fluid. Right Ovary: Spherical 2.7 cm complex right adnexal mass with areas of shadowing and no detectable va scular flow. Left Ovary: Not visualized. No adnexal mass. There is no free fluid in the pelvis. IMPRESSION: No uterine fibroids detected in this examination. Left ovary not visualized. Complex right adnexal ma ss with areas of shadowing, which may represent dystrophic calcification within the right ovary. Cons ider MR of the pelvis for further evaluation. Reviewed, dictated and finalized at location K. EE GRINDER IMPRESSION: No uterine fibroids detected in this examination. Left ovary not visualized. Co mplex right adnexal mass with areas of shadowing, which may represent dystrophi c calcification within the right ovary. Consider MR of the pelvis for further e valuation.
== END ==
PROVIDERS: PCP Emergency Medicine; Visit Provider Emergency Medicine
DX: D25.9 Leiomyoma of uterus, unspecified (principal)
CPT/HCPCS: 76830; 76856

== ENCOUNTER 2022-06-11 09:49 | Outpatient (CLI) | payer MEDICARE, SELFPAY ==
--- NOTE | ~2022-06-11 | MR_ITS ---
EXAMINATION: MR pelvis wo/w con DATE: 06/11/2022 11:27 INDICATION: Right adnexal mass. Peripelvic pain. TECHNIQUE: Magnetic resonance imaging (MRI) of the pelvis was performed without and with 19 mL MultiH ance intravenous contrast. COMPARISON: Ultrasound pelvis 05/14/2022, CT abdomen and pelvis 01/10/2022 FINDINGS: There are no dilated loops of bowel. There is diverticulosis of the colon without evidence of diverti culitis. The endometrial complex measures 3 mm in thickness, which is normal. The ovaries are normal. There is a 2.6 cm subserosal fibroid on the right posteriorly. There are no pathologically enlarged lymph nodes. There is no free intraperitoneal fluid. There is mild bilateral trochanteric bursitis. IMPRESSION: 1. 2.6 cm uterine fibroid. Reviewed, dictated and finalized at location A. IMPRESSION: 1. 2.6 cm uterine fibroid.
--- NOTE | ~2022-06-11 | CT_ITS ---
CT Scan of the Chest without Contrast: Clinical Indication: Lung cancer screening, nicotine dependence, smoking history Technique: Contiguous sections were acquired throughout the chest without intravenous contrast. Dose reduction technique was used on this scan by utilizing automated exposure control and iterative recon struction technique. The dose-length product (DLP) was 232.89 mGy-cm. COMPARISON: 06/05/2021, 04/06/2020: 12/20/2018 Findings: There is no evidence of any significant mediastinal, hilar or axillary lymphadenopathy. The mediastin al soft tissues appear normal. There is no evidence of pleural or pericardial effusion. Stable left basilar scarring noted. No suspicious pulmonary nodules or infiltrates are noted. Images through the upper abdomen reveal stable elevation of the right hemidiaphragm. Impression: Lungs-RADS 1: Negative. 12 month follow-up screening CT advised. Reviewed, dictated and finalized at [facility]. Impression: Lungs-RADS 1: Negative. 12 month follow-up screening CT advised.
== END 2022-06-11 09:50 | disposition home or self-care (01) ==
PROVIDERS: PCP Emergency Medicine; Visit Provider Nurse Practitioner Family
DX: Z12.2 Encounter for screening for malignant neoplasm of respiratory organs (principal); Z87.891 Personal history of nicotine dependence; N94.89 Other specified conditions associated with female genital organs and menstrual cycle; D25.9 Leiomyoma of uterus, unspecified
CPT/HCPCS: 71271; 72197; A9577

== ENCOUNTER 2022-07-04 00:25 | Day surgery (SDC) | payer MEDICARE, SELFPAY ==
[2022-06-24 14:57] VITALS: BMI 41.0
[2022-07-04 11:33] VITALS: BP 143/80; PULSE 77; RESP 20; TEMP 36.4; O2SAT 97; BMI 41.8
[2022-07-04] MEDS: LACTATED RINGERS 1,000 ML 150 ML IV CONT (11:41)
--- NOTE | 2022-07-04 11:59 | PM.HPGS ---
History of Present Illness History of Present Illness Consent: Risks, benefits, and alternatives have been discussed and questions answered. Patient agrees to proceed with procedure. Chief complaint: bloating Narrative: Odette Olson is a 66 year old female Presents for EGD. Patient complains of abdominal bloating and discomfort. She has rather vague diffuse abdominal pains. Recent ER visit a CT scan revealed a cast calcified fibroid. Previous colonoscopy In 2020 showed benign polyp. Recent imaging studies suggest excess stool in the colon for this reason laxatives have been advised. Patient presents today for EGD. Review of Systems Review of Systems: Review of systems noncontributory. [facility] Past Medical History Medical History (Updated 05/28/22 @ 12:06 by Zo Devi, FITNESS CENTRE MANAGER) Abdominal pain Angina at rest Arthritis Benign positional vertigo Bloating Cataracts, bilateral Maturing CHF (congestive heart failure) Diastolic with EF of 55% on last echocardiogram August 2016 Chronic respiratory failure with hypoxia and hypercapnia Chronic respiratory failure with hypoxia, on home O2 therapy Due to right hemidiaphragm paralysis for 11 years, obstructive sleep apnea, PFTs 2012 demonstrating moderate restrictive and severe obstructive disease without bronchodilator response Constipation Duodenal ulcer DVT (deep venous thrombosis) Bilateral lower extremity November 2018 GERD (gastroesophageal reflux disease) Hepatic steatosis Hiatal hernia History of esophageal spasm History of paroxysmal supraventricular tachycardia Hypertension IBS (irritable bowel syndrome) Irritable bowel syndrome with constipation Mass of right ovary Mitral valve prolapse Ovarian cyst Periodontal disease Peripheral neuropathy Pneumonia Pulmonary emboli Extensive acute pulmonary emboli November 2018 Pulmonary hypertension Suggested by CT findings October 2018 Rectal polyp Scoliosis Sinus problem Spinal stenosis Tobacco abuse Type 2 diabetes mellitus UTI (urinary tract infection) Surgical History Surgical History Branchial cleft cyst Excision of her right-sided brachial cleft cyst 1971 H/O dilation and curettage H/O: section 1976 History of bilateral carpal tunnel release 2005 History of colonoscopy with polypectomy History of right breast biopsy With benign pathology History of total right knee replacement 2009 Family History Family History Mother Hypertension Coronary artery disease COPD (chronic obstructive pulmonary disease) Father Hypertension Coronary artery disease Sibling Hypertension Social History Social History Social History: Patient is . She is currently residing at a halfway facility for rehabilitation. The patient has a 30 pack per year smoking history and quit smoking in 2003. She does not drink alcohol or use illicit substances. Primary care physician: Dr. Christian Garcia Code status: Full code Smoking packs per day: 1 Smoking cigarettes per day: 20.0 Years smoked: 30 Smoking pack-years: 30.00 Smoking status: Former smoker Tobacco type: cigarettes Alcohol intake: current Substance use: never Substance use type: does not use Lack of Transportation: No Lack of Food: Never True Current Housing: I Have Housing Concerned About Future Housing: No Difficulty Paying Gas/Electric Bills: No Difficulty Paying for Meds: No Currently Unemployed: No Education: Trade/Vocational Certificate Difficulty w/ Childcare or Family Care: No Living arrangements: alone Gender identity (if verbalized by the patient): Female Spiritual care concerns: No Agree to blood products: No Meds Home Medications and Allergies Home Medications Medication Instructions Recorded Conf
--- NOTE | 2022-07-04 12:18 | WPDANESEPPF ---
Anes - Initial Pre Proc Eval Procedure: Operation Date: 07/04/22 13:00 Proposed Procedures p Esophagogastroduodenoscopy - Jacob Lowery MD Date/Time: 07/04/22 12:18 Surgeon: Jacob Lowery MD Pre Op Diagnosis: bloating Patient Data Age: 66 Gender: F Height: 1.52 m Weight: 97.1 kg Last Vital Signs Temp 97.6 F 07/04/22 11:33 Pulse 77 07/04/22 11:33 Resp 20 07/04/22 11:33 BP 143/80 H 07/04/22 11:33 Pulse Ox 97 07/04/22 11:33 O2 Del Method Room Air 07/04/22 11:33 Allergies Allergy/AdvReac Type Severity Reaction Status Date / Time fluticasone Allergy Intermediate Other Verified 07/04/22 11:30 [From Advair Diskus] salmeterol Allergy Intermediate Other Verified 07/04/22 11:30 adhesive tape Allergy Mild RASH Verified 07/04/22 11:30 pimecrolimus Allergy Unknown Skin Verified 07/04/22 11:30 Reaction Home Medications Medication Instructions Recorded Confirmed Type fluticasone propionate 50 2 spray intranasal DAILY PRN nasal 01/22/20 06/24/22 Rx mcg/actuation nasal congestion #15.8 mL spray,suspension (Flonase Allergy Relief) polyethylene glycol 3350 17 gram 17 g PO DAILY 11/14/20 06/24/22 History oral powder packet (Miralax) cyanocobalamin (vitamin B-12) 2,500 mcg PO DAILY 05/14/21 06/24/22 History 2,500 mcg sublingual tablet (Vitamin B-12) montelukast 10 mg tablet See Rx Instructions .Route 10/22/21 06/24/22 Rx .COMPLEX #90 tabs pantoprazole 40 mg tablet,delayed See Rx Instructions .Route 10/22/21 06/24/22 Rx release .COMPLEX #90 tabs metoprolol tartrate 100 mg tablet See Rx Instructions .Route 03/13/22 06/24/22 Rx .COMPLEX #180 tabs atorvastatin 10 mg tablet 10 mg PO DAILY #90 tabs 04/18/22 06/24/22 Rx arformoterol 15 mcg/2 mL solution See Rx Instructions .Route 04/25/22 06/24/22 Rx for nebulization .COMPLEX #120 mL budesonide 0.5 mg/2 mL suspension See Rx Instructions .Route 04/25/22 06/24/22 Rx for nebulization .COMPLEX #120 mL cyclobenzaprine 10 mg tablet See Rx Instructions .Route 05/02/22 06/24/22 Rx .COMPLEX #180 tabs potassium chloride 20 mEq See Rx Instructions .Route 05/02/22 06/24/22 Rx tablet,extended release(part/cryst) .COMPLEX #180 tabs albuterol sulfate 2.5 mg/3 mL 2.5 mg (3 mL) inhalation DAILY PRN 05/16/22 06/24/22 Rx (0.083 %) solution for nebulization shortness of breath or wheezing #90 mL apixaban 5 mg tablet (Eliquis) See Rx Instructions .Route 06/02/22 06/24/22 Rx .COMPLEX #60 tabs furosemide 40 mg tablet See Rx Instructions .Route 06/24/22 06/24/22 Rx .COMPLEX #90 tabs guaifenesin 1,200 mg tablet, 1,200 mg PO DAILY 06/24/22 06/24/22 History extended release 12 hr (Mucus-ER MAX) theophylline 400 mg See Rx Instructions .Route 06/24/22 06/24/22 Rx tablet,extended release 24 hr .COMPLEX #90 tabs triamcinolone acetonide 0.1 % 1 applic topical BID PRN Rash 06/24/22 06/24/22 History topical ointment linaclotide 145 mcg capsule 145 mcg PO DAILY 1 month #30 caps 06/25/22 07/04/22 Rx (Linzess) Patient hx anesthesia problems: none Family hx anesthesia problems: none Results Review: All pre-operative results and documents have been reviewed as part of the pre-operative evaluation. [facility] Past Medical History Medical History (Updated 05/28/22 @ 12:06 by Zo Devi, LASHA) Abdominal pain Angina at rest Arthritis Benign positional vertigo Bloating Cataracts, bilateral Maturing CHF (congestive heart failure) Diastolic with EF of 55% on last echocardiogram August 2016 Chronic respiratory failure with hypoxia and hypercapnia Chronic respiratory failure with hypoxia, on home O2 therapy Due to right hemidiaphragm paralysis for 11 years, obstructive sleep apnea, PFTs 2012 demonstrating moderate restrictive and severe obstructive disease without bronchodilator response Constipation Duodenal ulcer DVT (deep venous thrombosis) Bilateral lower extremity November 2018 GERD (gastroes
[2022-07-04 13:19] VITALS: BP 139/76; PULSE 76; RESP 21; O2SAT 92
[2022-07-04 13:29] VITALS: BP 138/86; PULSE 76; RESP 22; O2SAT 94
[2022-07-04 13:39] VITALS: BP 154/98; PULSE 74; RESP 20; O2SAT 97
== END 2022-07-04 13:54 | disposition home or self-care (01) ==
PROVIDERS: PCP Emergency Medicine; Visit Provider Internal Medicine Gastroenterology
PROC: 0DJ08ZZ Inspection of Upper Intestinal Tract, Via Natural or Artificial Opening Endoscopic (ICD-10-PCS; CPT 43235; principal; 2022-07-04 13:00)
DX: R10.84 Generalized abdominal pain (principal); R14.0 Abdominal distension (gaseous); K21.9 Gastro-esophageal reflux disease without esophagitis; I11.0 Hypertensive heart disease with heart failure; I50.30 Unspecified diastolic (congestive) heart failure; J96.12 Chronic respiratory failure with hypercapnia; J96.11 Chronic respiratory failure with hypoxia; K58.1 Irritable bowel syndrome with constipation; I34.1 Nonrheumatic mitral (valve) prolapse; E11.42 Type 2 diabetes mellitus with diabetic polyneuropathy; Z79.51 Long term (current) use of inhaled steroids; Z79.01 Long term (current) use of anticoagulants; Z86.711 Personal history of pulmonary embolism; Z86.718 Personal history of other venous thrombosis and embolism; Z87.891 Personal history of nicotine dependence; E66.01 Morbid (severe) obesity due to excess calories; Z68.41 Body mass index [BMI] 40.0-44.9, adult
CPT/HCPCS: 43239; 87081; J2704; J7120

== ENCOUNTER 2022-08-20 09:03 | Outpatient (CLI) | payer MEDICARE, SELFPAY ==
[2022-08-20 13:10] LABS: Basophils Absolute Auto 0.1 K/mm3 (0.0-0.1); Basophils Percent Auto 0.9 % (0.2-1.2); Eosinophils Absolute Auto 0.3 K/mm3 (0-0.3); Eosinophils Percent Auto 3.9 % (0-4.4); Hematocrit 44.2 % (37.0-47.0); Hemoglobin 13.2 g/dL (12.0-15.0); Immature Granulocyte Absolute 0.02 K/mm3 (0.00-0.031); Immature Granulocyte Percent A 0.2 % (0-0.5); Lymphocytes Percent Auto 21.9 % (18.3-44.2); Mean Corpuscular HGB Conc 29.9 g/dl (32-36); Mean Corpuscular Hemoglobin 26.7 pg (26-34); Mean Corpuscular Volume 89.5 fl (80-100); Mean Platelet Volume 9.7 fl (7.4-10.4); Monocytes Absolute Auto 0.8 K/mm3 (0.1-0.6); Monocytes Percent Auto 9.1 % (2.6-8.5); Neutrophils Absolute Auto 5.3 K/mm3 (1.3-6.7); Platelet Count Result 307 k/mm3 (150-375); Red Blood Count 4.94 M/mm3 (4.2-5.4); Red Cell Distribution Width 14.9 % (11.5-14.5); White Blood Count 8.2 K/mm3 (4.5-10.0)
[2022-08-20 13:26] LABS: Blood Urea Nitrogen 25 mg/dL (7-17); Calcium 9.5 mg/dL (8.4-10.2); Carbon Dioxide > 40 mmol/L (22-30); Chloride 92 mmol/L (98-107); Cholesterol 143 mg/dL (0-200); Estimated Glomerular Filt Rate 50; Glucose 102 mg/dL (65-110); HDL Direct 38 mg/dL; Potassium 4.9 mmol/L (3.4-5.0); Sodium 139 mmol/L (137-145); Triglycerides 205 mg/dL (<150)
[2022-08-20 13:32] LABS: LDL Cholesterol Direct 42 mg/dL
[2022-08-20 13:38] LABS: Hemoglobin A1C 6.4 % (<5.7)
[2022-08-20 13:58] LABS: Platelet Estimate Adequate (Adequate)
[2022-08-20 13:59] LABS: Hypochromasia 1+ (NORMAL); Schistocytes None Seen (NORMAL)
== END 2022-08-20 09:04 | disposition home or self-care (01) ==
LOC: ANHGOSHLAB 09:04
PROVIDERS: PCP Emergency Medicine; Visit Provider Nurse Practitioner Family
DX: E78.2 Mixed hyperlipidemia (principal); I50.33 Acute on chronic diastolic (congestive) heart failure; E11.9 Type 2 diabetes mellitus without complications; F33.9 Major depressive disorder, recurrent, unspecified; K58.9 Irritable bowel syndrome, unspecified; R06.02 Shortness of breath; E66.09 Other obesity due to excess calories; M79.7 Fibromyalgia
CPT/HCPCS: 36415; 80048; 80061; 83036; 84443; 85025

== ENCOUNTER 2022-08-20 10:23 | Outpatient (CLI) | payer MEDICARE, SELFPAY ==
--- NOTE | ~2022-08-20 | CT_ITS ---
EXAMINATION: CT abdomen pelvis w con DATE: 08/20/2022 11:13 INDICATION: Left lower quadrant pain TECHNIQUE: Computed tomography (CT) of the abdomen and pelvis was performed with 100 cc Omnipaque 350 intravenous contrast. The dose-length product was 1370.36 mGy-cm. Automated exposure control and ite rative reconstruction technique were employed. COMPARISON: CT dated 01/10/2022 FINDINGS: There is right lower lobe airspace consolidation, most likely compressive atelectasis secon thierry to elevated diaphragm. There are left renal parapelvic cysts. Fatty infiltration of the liver. M ild atherosclerosis. No aneurysm. No lymphadenopathy. Colonic diverticulosis without evidence for acu te diverticulitis. The spleen, pancreas, adrenal glands are unremarkable. No free air or free fluid. Heart size normal. Elevated right diaphragm, suspicious for phrenic nerve paralysis. There is moderat e lower thoracic and lumbar spondylosis. IMPRESSION: 1. Chronic elevation the right diaphragm with underlying compressive atelectasis. 2: No acute abdominal abnormality. Reviewed, dictated and finalized at location B. IMPRESSION: 1. Chronic elevation the right diaphragm with underlying compressive atelectasi s. 2: No acute abdominal abnormality.
[2022-08-20 11:05] LABS: Estimated Glomerular Filt Rate 45
== END 2022-08-20 10:24 | disposition home or self-care (01) ==
PROVIDERS: PCP Emergency Medicine; Visit Provider Nurse Practitioner
DX: R10.32 Left lower quadrant pain (principal)
CPT/HCPCS: 36415; 74177; 80048; 80061; 83036; 84443; 85025; Q9967

== ENCOUNTER → 2022-09-03 11:18 | Outpatient (CLI) | payer MEDICARE, SELFPAY ==
--- NOTE | ~2022-09-03 | MM_ITS ---
EXAMINATION: MM screening izabela BI w sami HISTORY: Screening TECHNIQUE: Craniocaudal and mediolateral oblique 3-D tomosynthesis images were obtained and synthetic 2-D images were generated. CAD analysis was submitted and interpreted. COMPARISON: 11/18/2017 BREAST PARENCHYMAL COMPOSITION: There are scattered areas of fibroglandular density.. FINDINGS: There is no evidence of suspicious mass, calcification, or architectural distortion to sugg est malignancy in either breast. There has been no suspicious interval change. IMPRESSION: 1. No mammographic evidence of malignancy. 2. Recommend routine screening mammography in one year. BI-RADS Category 1: Negative Reviewed, dictated and finalized at location A.
== END ==
PROVIDERS: PCP Emergency Medicine; Visit Provider Emergency Medicine
DX: Z12.31 Encounter for screening mammogram for malignant neoplasm of breast (principal)
CPT/HCPCS: 77063; 77067

== ENCOUNTER 2023-01-26 12:36 | Outpatient (CLI) | payer MEDICARE, SELFPAY ==
[2023-01-26 13:15] VITALS: PULSE 85; O2SAT 98
[2023-01-26 13:17] VITALS: PULSE 86; O2SAT 94
[2023-01-26 13:19] VITALS: PULSE 96; O2SAT 95
[2023-01-26 13:23] LABS: Alveolar/Arterial O2 Gradient 16.7 mmHg; Base Excess ABG 6.8 mEq/l (+/-2.0); Fractional Inspired Oxygen 21 %; HCO3 ABG 34.1 mEq/l (22.0-26.0); Oxygen Content ABG 18.8 %vol (16.0-22.0); Oxygen Saturation ABG 90.4 % (95.0-100.0); Oxyhemoglobin 90.4 % THb (90.0-100.0); PCO2 ABG 59.8 mmHg (35.0-45.0); PO2 ABG 61.4 mmHg (80.0-100.0); PO2 FiO2 Ratio Arterial Blood 2.92 %; Site Drawn LEFT RADIAL; Total Hemoglobin 14.8 g/dL (12.0-18.0); pH ABG 7.374 (7.350-7.450)
[2023-01-26 13:24] LABS: Device ROOM AIR; Modified Allen's Test Pass
--- NOTE | 2023-01-26 13:31 | HOMEO2EVAL ---
Evaluation was performed at [facility] Home Oxygen Evaluation RC: Home Oxygen (O2) Evaluation Start: 01/26/23 13:29 Freq: Status: Active Protocol: RPE Activity Type Activity Date Activity User E-sign Co-sign Detail Recorded Client Recorded Date Recorded By Document 01/26/23 13:15 KRM [email or web address] 01/26/23 13:30 KRM Document 01/26/23 13:17 KRM [id number] 01/26/23 13:30 KRM Document 01/26/23 13:19 KRM [email or web address] 01/26/23 13:30 KRM 01/26/23 01/26/23 01/26/23 13:15 13:17 13:19 Home O2 Evaluation [Oxygen] -Test Phase Resting Exercise Exercise -Oxygen Delivery Room Air Room Air Room Air [Pulse Oximetry] -Pulse Oximetry (90-100 %) 98 94 95 [Pulse Rate] -Pulse Rate (60-100 beats/min) 85 86 96 [Evaluation] -Activity Tolerance Fair Fair [Exercise] -Ambulation Distance (feet) 200 -Ambulation Distance (meters) 60.95 [Charges] -Treatment Charges O2 Evaluation - Outpatient
== END 2023-01-26 12:37 | disposition home or self-care (01) ==
LOC: ANHPFT 12:38
PROVIDERS: PCP Emergency Medicine; Visit Provider Nurse Practitioner Family
DX: J96.11 Chronic respiratory failure with hypoxia (principal); J96.12 Chronic respiratory failure with hypercapnia; J96.21 Acute and chronic respiratory failure with hypoxia; J96.22 Acute and chronic respiratory failure with hypercapnia
CPT/HCPCS: 36600; 82805; 94618

== ENCOUNTER → 2023-02-24 12:12 | Outpatient (CLI) | payer MEDICARE, SELFPAY ==
--- NOTE | ~2023-02-24 | XR_ITS ---
XR chest 2V 02/24/2023 12:39 Indication: Acute lower respiratory infection Procedure: PA and lateral views the chest Comparison: Comparison to multiple prior studies sequentially, with oldest reviewed study dated 12/20. Findings: Chronic elevation the right diaphragm suggesting phrenic nerve paralysis. Moderate gaseous distention of the colon beneath the right diaphragm. Right basilar atelectasis. Cardiomegaly. No sign ificant effusion. No edema or pneumothorax. No acute osseous abnormality. Impression: 1: Right basilar atelectasis with chronic elevation of the right diaphragm, suspicious for phrenic ne rve paralysis. Reviewed, dictated and finalized at location L. AL SPRING WINDER Impression: 1: Right basilar atelectasis with chronic elevation of the right diaphragm, ursula picious for phrenic nerve paralysis.
== END ==
PROVIDERS: PCP Emergency Medicine; Visit Provider Emergency Medicine
DX: J22 Unspecified acute lower respiratory infection (principal); R91.8 Other nonspecific abnormal finding of lung field
CPT/HCPCS: 71046

== ENCOUNTER 2023-03-18 10:06 | Outpatient (CLI) | payer MEDICARE, SELFPAY ==
--- NOTE | ~2023-03-18 | CT_ITS ---
CT Scan of the Chest without Contrast: Clinical Indication: Shortness of breath Technique: Contiguous sections were acquired throughout the chest without intravenous contrast. Dose reduction technique was used on this scan by utilizing automated exposure control and iterative recon struction technique. The dose-length product (DLP) was 440.85 mGy-cm. COMPARISON: 06/11/2022 Findings: There is no evidence of any significant mediastinal, hilar or axillary lymphadenopathy. The mediastin al soft tissues appear normal. There is no evidence of pleural or pericardial effusion. There is stable elevation of the right hemidiaphragm with minimal right basilar atelectasis. Lungs ar e otherwise clear. Images through the upper abdomen reveal no abnormalities. Impression: No acute abnormality. Stable elevation right hemidiaphragm. Reviewed, dictated and finalized at [facility]. POT MAN Impression: No acute abnormality. Stable elevation right hemidiaphragm.
[2023-03-18 11:07] LABS: Basophils Absolute Auto 0.1 K/mm3 (0.0-0.1); Basophils Percent Auto 0.8 % (0.2-1.2); Eosinophils Absolute Auto 0.3 K/mm3 (0-0.3); Eosinophils Percent Auto 5.6 % (0-4.4); Hematocrit 44.6 % (37.0-47.0); Hemoglobin 13.6 g/dL (12.0-15.0); Immature Granulocyte Absolute 0.02 K/mm3 (0.00-0.031); Immature Granulocyte Percent A 0.3 % (0-0.5); Lymphocytes Absolute Auto 1.16 K/mm3 (0.9-3.2); Mean Corpuscular HGB Conc 30.5 g/dl (32-36); Mean Corpuscular Hemoglobin 27.6 pg (26-34); Mean Corpuscular Volume 90.5 fl (80-100); Mean Platelet Volume 9.9 fl (7.4-10.4); Monocytes Absolute Auto 0.5 K/mm3 (0.1-0.6); Monocytes Percent Auto 8.7 % (2.6-8.5); Neutrophils Percent Auto 65.6 % (45.5-73.1); Platelet Count Result 226 k/mm3 (150-375); Red Blood Count 4.93 M/mm3 (4.2-5.4); Red Cell Distribution Width 14.6 % (11.5-14.5); White Blood Count 6.1 K/mm3 (4.5-10.0)
[2023-03-18 11:24] LABS: Hemoglobin A1C 6.9 % (<5.7)
[2023-03-18 11:27] LABS: Alanine Aminotransferase 15 U/L (6-35); Albumin Level 4.1 g/dL (3.5-5.1); Alkaline Phosphatase 129 U/L (38-126); Aspartate Amino Transferase 23 U/L (14-36); Bilirubin,Total 0.9 mg/dL (0.2-1.3); Blood Urea Nitrogen 12 mg/dL (7-17); Calcium 9.9 mg/dL (8.4-10.2); Carbon Dioxide > 40 mmol/L (22-30); Chloride 93 mmol/L (98-107); Estimated Glomerular Filt Rate 55; Glucose 124 mg/dL (65-110); Sodium 137 mmol/L (137-145)
== END 2023-03-18 10:07 | disposition home or self-care (01) ==
PROVIDERS: PCP Emergency Medicine; Visit Provider Emergency Medicine
DX: R06.02 Shortness of breath (principal); R53.83 Other fatigue; E11.9 Type 2 diabetes mellitus without complications; J22 Unspecified acute lower respiratory infection; R05.9 Cough, unspecified
CPT/HCPCS: 36415; 71250; 80053; 83036; 84443; 85025

== ENCOUNTER 2023-04-02 12:31 | Outpatient (CLI) | payer MEDICARE, SELFPAY ==
--- NOTE | 2023-04-02 13:26 | ECHO_ITS ---
Patient Info Name: Odette Olson Age: 67 years : 1955 Gender: Female Ht: 60 in Wt: 206 lbs BSA: 2.04 m2 HR: 95 bpm BP: 126 / 70 mmHg Technical Quality: Poor Exam Date: 04/02/2023 2:43 PM Exam Location: Echo Lab Patient Status: Outpatient Admit Date: 04/02/2023 Staff Ordering Physician: Maxx Paredes MD Reprographics Technician: Kerri Moraes RCS Attending Provider: Maxx Paredes MD Referring Physician: Reggie ZAMORA; Exam Type: CA echo doppler color flow Study Info Indications R06.02 - Shortness of breath Complete two-dimensional, color flow and Doppler transthoracic echocardiogram is performed with contrast to opacify the left ventricle and to improve the deliniation of the left ventricle endocardial borders. Contrast/Agitated Saline Contrast/Ag. Saline: Definity Amount: 1.00 ml Existing IV Access: No IV Access Condition: patent with no signs of infiltration New IV Access: Dorsum of Hand and Right Site Condition: No extravasation, Site dressing applied and IV removed Reason for Poor Study: patient body habitus Summary 1. Technically difficult study with limited views. 2. Left ventricular chamber dimension is normal. 3. Left ventricular systolic function is hyperdynamic, estimated at >70%. 4. There is mildly increased left ventricular wall thickness. 5. The left ventricular diastolic function is grade I diastolic dysfunction. 6. Right ventricular systolic function is normal. 7. There is trace mitral valve regurgitation. 8. There is trace tricuspid valve regurgitation. 9. There is small anterior pericardial effusion. Left Ventricle Left ventricular chamber dimension is normal. Left ventricular systolic function is hyperdynamic, estimated at >70%. There is mildly increased left ventricular wall thickness. The left ventricular diastolic function is grade I diastolic dysfunction. Right Ventricle Right ventricular chamber dimension is not well visualized. Right ventricular systolic function is normal. Left Atria Left atrial chamber dimension is normal. Right Atria Right atrial chamber dimension is not well visualized. Atrial Septum Intact interatrial septum visualized by color flow imaging. Aortic Valve The aortic valve is not well visualized. There is no aortic valve stenosis. There is no aortic valve regurgitation. Pulmonic Valve The pulmonic valve is not well visualized. Mitral Valve There is trace mitral valve regurgitation. Tricuspid Valve There is trace tricuspid valve regurgitation. Pericardium/Pleural The pericardium appears epicardial fat pad. There is small anterior pericardial effusion. Inferior Vena Cava Inferior vena cava is not well visualized. Aorta The aortic root size at the sinus of Valsalva is normal. Left Ventricular Outflow Tract Name Value Normal LVOT 2D LVOT Diameter 2.0 cm LVOT Doppler LVOT Peak Gradient 6 mmHg LVOT Mean Gradient 3 mmHg LVOT VTI 23 cm LVOT VTI/AV VTI Ratio 0.8 LVOT Stroke Volume 74 ml Pulmonic Valve
[2023-04-02 13:30] LABS: Alveolar/Arterial O2 Gradient 25.2 mmHg; Base Excess ABG 6.5 mEq/l (+/-2.0); Fractional Inspired Oxygen 21 %; HCO3 ABG 32.5 mEq/l (22.0-26.0); Oxygen Content ABG 19.1 %vol (16.0-22.0); Oxygen Saturation ABG 92.1 % (95.0-100.0); Oxyhemoglobin 91.8 % THb (90.0-100.0); PCO2 ABG 51.5 mmHg (35.0-45.0); PO2 ABG 62.9 mmHg (80.0-100.0); Total Hemoglobin 14.8 g/dL (12.0-18.0); pH ABG 7.418 (7.350-7.450)
[2023-04-02 13:31] LABS: Device ROOM AIR; Modified Allen's Test Pass; Site Drawn RIGHT RADIAL
[2023-04-02] MEDS: PERFLUTREN LIPID MICROSPHERES 1.5 ML VIAL DILUTED TO 10 ML TOTAL VOLUME IV PUSH (14:02)
--- NOTE | 2023-04-02 15:41 | IVDEFINITY ---
Prior to administration of IV Definity the patient was educated on the risks and benefits of the imaging enhancing agent including potential adverse side effects. The patient verbalized understanding. Allergies were verified. No exclusion criteria were identified and at least one of the following inclusion criteria were met: 1) physician request, 2) patient technically difficult to image (per the [place] [employer]chocardi[employer] guidelines of two or more segments not discernable within the apical view), or 3) questionable left ventricular function. ?
== END 2023-04-02 12:32 | disposition home or self-care (01) ==
LOC: ANHPFT 12:32
PROVIDERS: PCP Emergency Medicine; Visit Provider Emergency Medicine
DX: R06.02 Shortness of breath (principal); J44.1 Chronic obstructive pulmonary disease with (acute) exacerbation
CPT/HCPCS: 36600; 82805; C8929; Q9957

== ENCOUNTER 2023-05-21 17:26 | Emergency (ER) | payer MEDICARE, SELFPAY ==
--- NOTE | ~2023-05-21 | XR_ITS ---
EXAMINATION: XR ankle RT min 3V DATE: 05/21/2023 18:36 INDICATION: Right ankle pain. Fall. TECHNIQUE: 3 views of right ankle were obtained. COMPARISON: Right ankle radiographs 07/24/2021 FINDINGS: Bone alignment is normal. No fracture. There is moderate midfoot osteoarthritis. There are enthesophytes at the posterior and plantar aspects of calcaneal tuberosity. IMPRESSION: 1. Moderate midfoot osteoarthritis. Reviewed, dictated and finalized at location E. E LEAD GRINDER
--- NOTE | ~2023-05-21 | XR_ITS ---
EXAMINATION: XR knee LT min 4V DATE: 05/21/2023 18:36 INDICATION: Left knee pain. Fall. TECHNIQUE: 4 views of left knee were obtained. COMPARISON: None. FINDINGS: Bone alignment is normal. There is a nondisplaced fracture of lateral aspect of patella. Th ere is moderate osteoarthritis of medial compartment and mild osteoarthritis of lateral and patellofe moral compartments. There is a large knee joint effusion. IMPRESSION: 1. Nondisplaced fracture of lateral aspect of patella. 2. Moderate left knee osteoarthritis. 3. Large knee joint effusion. Reviewed, dictated and finalized at location E. ROLLING MACHINE SETTER
[2023-05-21 17:42] VITALS: BP 140/65; PULSE 81; RESP 20; TEMP 36.2; O2SAT 95
[2023-05-21 18:47] VITALS: BP 141/73; PULSE 83; RESP 18; O2SAT 93
--- NOTE | 2023-05-21 18:51 | ED.FALL ---
HPI - Fall General Chief Complaint: Fall Stated Complaint: Fall, left knee/right ankle pain Time Seen by Provider: 05/21/23 18:30 Source: patient Mode of arrival: EMS Limitations: no limitations History of Present Illness HPI Narrative: Patient is a 67-year-old female who presents to the ED via EMS with report of a fall. Patient reports she was walking to go get her mail and stepped down her stairs into her garage when she slipped and fell. She landed on her knees, with the majority of her weight on her left knee. She hit her head against a refrigerator. Denied LOC. She was unable to get up off the ground or bear weight on her left leg due to pain, so EMS was called. C/o severe pain to L knee. Also c/o pain to R ankle. Believes she twisted her ankle. Denies headache, dizziness, lightheadedness, chest pain, shortness of breath, neck or back pain, vision changes, nausea, vomiting, numbness. Patient is on Eliquis d/t hx dvt. Related Data Home Medications Medication Instructions Recorded Confirmed polyethylene glycol 3350 17 gram 17 g PO DAILY 11/14/20 05/20/23 oral powder packet (Miralax) cyanocobalamin (vitamin B-12) 2,500 mcg PO DAILY 05/14/21 05/20/23 2,500 mcg sublingual tablet (Vitamin B-12) Allergies Allergy/AdvReac Type Severity Reaction Status Date / Time fluticasone Allergy Intermediate Other Verified 05/21/23 17:37 [From Advair Diskus] salmeterol Allergy Intermediate Other Verified 05/21/23 17:37 adhesive tape Allergy Mild RASH Verified 05/21/23 17:37 pimecrolimus Allergy Unknown Skin Verified 05/21/23 17:37 Reaction Review of Systems Review of Systems: CONSTITUTIONAL: Denies fever, chills, or sweats. ENT: Denies vision changes. CARDIOVASCULAR: Denies chest pain RESPIRATORY: Denies dyspnea. GASTROINTESTINAL: Denies abdominal pain, nausea, vomiting. MUSCULOSKELETAL: See HPI. NEUROLOGIC: See HPI. All systems reviewed & are unremarkable except as noted in HPI and below PMFSH Past Medical History Medical History Abdominal pain Angina at rest Arthritis Benign positional vertigo Bloating Cataracts, bilateral Maturing CHF (congestive heart failure) Diastolic with EF of 55% on last echocardiogram August 2016 Chronic respiratory failure with hypoxia and hypercapnia Chronic respiratory failure with hypoxia, on home O2 therapy Due to right hemidiaphragm paralysis for 11 years, obstructive sleep apnea, PFTs 2012 demonstrating moderate restrictive and severe obstructive disease without bronchodilator response Constipation Duodenal ulcer DVT (deep venous thrombosis) Bilateral lower extremity November 2018 GERD (gastroesophageal reflux disease) Hepatic steatosis Hiatal hernia History of esophageal spasm History of paroxysmal supraventricular tachycardia Hypertension IBS (irritable bowel syndrome) Irritable bowel syndrome with constipation Mass of right ovary Mitral valve prolapse Ovarian cyst Pain, abdominal, LLQ Periodontal disease Peripheral neuropathy Pneumonia Pulmonary emboli Extensive acute pulmonary emboli November 2018 Pulmonary hypertension Suggested by CT findings October 2018 Rectal polyp Scoliosis Sinus problem Spinal stenosis Tobacco abuse Type 2 diabetes mellitus UTI (urinary tract infection) Surgical History Surgical History Branchial cleft cyst Excision of her right-sided brachial cleft cyst 1971 H/O dilation and curettage H/O: section 1976 History of bilateral carpal tunnel release 2005 History of colonoscopy with polypectomy History of right breast biopsy With benign pathology History of total right knee replacement 2009 Family History Family History Mother Hypertension Coronary artery disease COPD (chronic obstructive pulmonary disease) Father Hyperten
[2023-05-21] MEDS: ACETAMINOPHEN 500 MG TABLET 1000 MG PO (20:26)
[2023-05-21 20:41] VITALS: BP 138/71; PULSE 80; RESP 20; O2SAT 92
== END 2023-05-21 20:44 | disposition home or self-care (01) ==
PROVIDERS: Emergency Provider Physician Assistant; PCP Emergency Medicine
DX: S82.092A Other fracture of left patella, initial encounter for closed fracture (principal); S93.401A Sprain of unspecified ligament of right ankle, initial encounter; I50.9 Heart failure, unspecified; I11.0 Hypertensive heart disease with heart failure; J96.12 Chronic respiratory failure with hypercapnia; J96.11 Chronic respiratory failure with hypoxia; Z99.81 Dependence on supplemental oxygen; E11.42 Type 2 diabetes mellitus with diabetic polyneuropathy; I34.1 Nonrheumatic mitral (valve) prolapse; K21.9 Gastro-esophageal reflux disease without esophagitis; K44.9 Diaphragmatic hernia without obstruction or gangrene; M17.12 Unilateral primary osteoarthritis, left knee; M19.071 Primary osteoarthritis, right ankle and foot; K58.9 Irritable bowel syndrome, unspecified; Z96.651 Presence of right artificial knee joint; Z86.718 Personal history of other venous thrombosis and embolism; Z86.711 Personal history of pulmonary embolism; Z87.01 Personal history of pneumonia (recurrent); Z87.440 Personal history of urinary (tract) infections; Z87.19 Personal history of other diseases of the digestive system; Z87.891 Personal history of nicotine dependence; Z79.01 Long term (current) use of anticoagulants; W10.9XXA Fall (on) (from) unspecified stairs and steps, initial encounter
CPT/HCPCS: 73564; 73610; 99284; A9270

== ENCOUNTER 2023-09-30 15:11 | Outpatient (CLI) | payer MEDICARE, SELFPAY ==
--- NOTE | 2023-09-30 15:18 | ECG_ITS ---
Test Date: 2023-09-30 15:35:38 Measurements Intervals [place] Rate: 90 P: 70 MI: 164 QRS: 73 QRSD: 85 T: 84 QT: 355 QTc: 436 Interpretive Statements SINUS RHYTHM LOW QRS VOLTAGE IN PRECORDIAL LEADS CONSIDER INFERIOR INFARCT, AGE INDETERMINATE NONSPECIFIC T-WAVE ABNORMALITY- HIGH LATERAL LEADS ABNORMAL ECG No previous ECG available for comparison Electronically Signed On 09-30-2023 17:07:23 CDT by Damir Ibarra D.O.
== END 2023-09-30 15:12 | disposition home or self-care (01) ==
LOC: ANHCARD 15:14
PROVIDERS: PCP Emergency Medicine; Visit Provider Nurse Practitioner Family
DX: I49.9 Cardiac arrhythmia, unspecified (principal); R94.31 Abnormal electrocardiogram [ECG] [EKG]
CPT/HCPCS: 93005

== ENCOUNTER 2023-11-16 09:37 | Outpatient (CLI) | payer MEDICARE, SELFPAY ==
--- NOTE | ~2023-11-16 | NM_ITS ---
EXAMINATION: NM ender stress w perfusion DATE: 11/16/2023 12:37 INDICATION: Abnormal electrocardiogram. Shortness of breath. TECHNIQUE: Rest images were obtained following intravenous administration of 8.6 mCi Tc99m tetrofosmi n (Myoview). The patient was infused intravenously with Lexiscan (regadenoson). Then, 28.3 mCi Tc99m tetrofosmin (Myoview) was administered intravenously, and stress images were obtained. Data was recon structed into short axis and horizontal and vertical long axis SPECT images. Gated SPECT images were also obtained. COMPARISON: None. FINDINGS: There is no definite reversible or fixed perfusion abnormality to suggest ischemia or infar ction. There is no segmental wall motion abnormality. Left ventricular ejection fraction measures 6 0%. IMPRESSION: 1. No definite ischemia or infarct. 2. Normal left ventricular ejection fraction measuring 60%. Reviewed, dictated and finalized at location A.
--- NOTE | 2023-11-16 09:54 | EST_ITS ---
Patient Info Name: Odette Olson Age: 68 years : 1955 Gender: Female Ht: 60 in Wt: 208 lbs BSA: 2.05 m2 HR: 79 bpm BP: 131 / 77 mmHg Exam Date: 11/16/2023 10:53 AM Exam Location: Echo Lab Patient Status: Outpatient Admit Date: 11/16/2023 Staff Ordering Physician: Sudeep Josue APRN Attending Provider: Sudeep Josue APRN Exercise Technologist: Rebeca Glover [facility] Exercise Physician: Damir Ibarra DO Exam Type: CA stress ender w NM Study Info A regadenoson stress test was performed. Summary 1. 1. Negative lexiscan stress test for ischemic ST changes by ECG criteria. 2. 2. Stable hemodynamics throughout the test. 3. 3. Nuclear scan to follow and will be reported separately. Please correlate with it. 4. 4. Patient informed of the above results. Protocol: Lexiscan Stress ECG Details Stage: REST Duration (min): 2 min : 17 sec HR (bpm): 79 SBP (mmHg): 131 DBP (mmHg): 77 Stage: REST Duration (min): 5 min : 51 sec HR (bpm): 80 SBP (mmHg): 131 DBP (mmHg): 77 Stage: STAGE 1 Duration (min): 1 min : 0 sec HR (bpm): 82 SBP (mmHg): 116 DBP (mmHg): 85 Stage: RECOVERY Duration (min): 1 min : 0 sec HR (bpm): 83 SBP (mmHg): 116 DBP (mmHg): 85 Stage: RECOVERY Duration (min): 2 min : 0 sec HR (bpm): 85 SBP (mmHg): 116 DBP (mmHg): 85 Stage: RECOVERY Duration (min): 3 min : 0 sec HR (bpm): 84 SBP (mmHg): 134 DBP (mmHg): 78 Stage: RECOVERY Duration (min): 4 min : 0 sec HR (bpm): 83 SBP (mmHg): 134 DBP (mmHg): 78 Stage: RECOVERY Duration (min): 5 min : 0 sec HR (bpm): 84 SBP (mmHg): 138 DBP (mmHg): 87 Stage: RECOVERY Duration (min): 5 min : 37 sec HR (bpm): 84 SBP (mmHg): 138 DBP (mmHg): 87 Rest HR: 80 bpm Peak HR: 86 bpm Rest Sys BP: 131 mmHg Peak Sys BP: 138 mmHg Max Pred HR: 152 bpm % Max Pred HR: 57 % Target HR: 129 bpm Max RPP: 11,868 bpm*mmHg Termination Reason: Completed protocol Cardiac Symptoms: Shortness of breath Total Time: 1 min : 0 sec Rest Felix BP: 77 mmHg Peak Felix BP: 87 mmHg Total Dose: 0.4 mg Resting ECG Sinus rhythm, IRBBB. Stress ECG No ST changes. Arrhythmias None. Report Signatures
== END 2023-11-16 09:38 | disposition home or self-care (01) ==
PROVIDERS: PCP Emergency Medicine; Visit Provider Nurse Practitioner Family
DX: R06.02 Shortness of breath (principal); R94.31 Abnormal electrocardiogram [ECG] [EKG]
CPT/HCPCS: 78452; 93017; A9502; J2785

== ENCOUNTER 2024-01-22 12:30 | Outpatient (CLI) | payer MEDICARE, SELFPAY ==
--- NOTE | ~2024-01-22 | XR_ITS ---
XR chest 2V 01/22/2024 13:56 Indication: Dyspnea. Shortness of breath. Procedure: 2 view chest Comparison: Comparison to multiple prior studies sequentially, with oldest reviewed study dated 01/29. Findings: Cardiomegaly. Elevated right diaphragm. Stable bibasilar airspace disease. No edema or pneu mothorax. Impression: 1: Stable bibasilar infiltrates, most likely atelectasis or scarring. Reviewed, dictated and finalized at location B. Impression: 1: Stable bibasilar infiltrates, most likely atelectasis or scarring.
[2024-01-22 13:17] LABS: Alveolar/Arterial O2 Gradient 14.2 mmHg; Base Excess ABG 9.5 mEq/l (+/-2.0); Fractional Inspired Oxygen 21 %; HCO3 ABG 36.9 mEq/l (22.0-26.0); Oxygen Content ABG 17.9 %vol (16.0-22.0); Oxygen Saturation ABG 90.2 % (95.0-100.0); Oxyhemoglobin 90.9 % THb (90.0-100.0); PO2 ABG 60.4 mmHg (80.0-100.0); PO2 FiO2 Ratio Arterial Blood 2.88 %; pH ABG 7.388 (7.350-7.450)
[2024-01-22 13:27] LABS: Device ROOM AIR; Modified Allen's Test Pass; PCO2 ABG 62.7 mmHg (35.0-45.0); Site Drawn RIGHT RADIAL
--- NOTE | 2024-01-22 14:26 | PCRCNOTE ---
PT HAD CRITICALLY HIGH CO2, REPORTED TO BILLY, WHO RELAYED TO KEVIN, WHO WANTED TO SPEAK TO BRENDAN. BRENDAN WAS CALLED BUT DIDNT RESPOND. PATIENT STAYED FOR APPROX 1 HOUR TO WAIT TO SEE IF ANYTHING NEEDED TO BE DONE. SHE WAS IN NO DISTRESS. BROTHER IS A PHYSICIAN AND FELT COMFORTABLE WITH HER GOING HOME. GISSEL AT PUL OFFICE IS AWARE OF THIS, ANY ISSUES, CAN REACH OUT TO PT ON CELL.
== END 2024-01-22 12:31 | disposition home or self-care (01) ==
PROVIDERS: PCP Emergency Medicine; Visit Provider Nurse Practitioner Family
DX: J96.11 Chronic respiratory failure with hypoxia (principal); J96.12 Chronic respiratory failure with hypercapnia; R91.8 Other nonspecific abnormal finding of lung field
CPT/HCPCS: 36600; 71046; 82805; 85018

== ENCOUNTER 2024-04-28 12:20 | Outpatient (CLI) | payer MEDICARE, SELFPAY ==
--- NOTE | ~2024-04-28 | XR_ITS ---
EXAMINATION: XR abdomen/kub 1V DATE: 04/28/2024 12:58 INDICATION: Bloating and cramping. TECHNIQUE: A supine view of the abdomen on 2 radiographs was obtained. COMPARISON: CT abdomen and pelvis 08/20/2022 FINDINGS: There is chronic marked elevation of right hemidiaphragm. There are no dilated loops of bow el. There is a small volume of stool in the colon. IMPRESSION: 1. Normal bowel gas pattern. Reviewed, dictated and finalized at location A. ATOR CLEANER
--- OUTSIDE RECORDS SUMMARY | 2024-04-28 13:10 | XMS_ITS | Clinical Summary ---
Author Organization [facility] Address [address] [place] [address]. [place] [address] [place] [address] Care Team Providers Care Warehouse Worker Name Role Phone Angel Buckner MD Primary Care Provider [phone] Medications albuterol (2.5 MG/3ML) 0.083% nebulizer solution 01/14/2019 Active budesonide 0.25 MG/2ML nebulizer solution 01/14/2019 Active cyclobenzaprine 10 MG tablet 11/17/2018 Active furosemide 40 MG tablet 11/17/2018 Active ipratropium 0.02 % nebulizer solution 03/11/2019 Active metFORMIN ER 500 MG 24 hr tablet 11/17/2018 Act ralph metoprolol tartrate 100 MG tablet 02/21/2019 Active montelukast 10 MG tablet 01/14/2019 Active NYSTATIN 527207 UNIT/GM powder 03/02/2019 Acti ve ondansetron 4 MG tablet 01/16/2019 Active pantoprazole EC 40 MG tablet 02/21/2019 Active potassium chloride 20 MEQ packet 05/03/2018 Activ e theophylline ER 450 MG 12 hr tablet 05/13/2018 Active Active Problems Problem Noted Date Diagnosed Date Acute systolic congestive heart failure ([facility]) 03/26/2019 Essential hypertension 03/26/2019 Other hyperlipidemia 03/26/2019 Type 2 diabetes mellitus wit hout complication, with long-term current use of insulin ([facility]) 03/26/2019 Social History Tobacco Use Types Packs/Day Years Used Date Smoking Tobacco: Never Assessed Comments Unknown Sex and Gender Information Value Date Recorded Sex Assigned at Not on file Legal Sex Female 8:42 AM BANQUET STEWARDESS Gender Identity Not on file Sexual Orientation Not on file Last Filed Vital Signs Vital Sign Reading Time Taken Comments Blood Pressure 141/92 03/15/2019 3:03 PM BANQUET STEWARDESS Pulse 87 03/15/2019 3:03 PM BANQUET STEWARDESS Temperature 36.9 ??C (98.4 ??F) 03/15/2019 3:03 PM CS T Respiratory Rate 20 03/15/2019 3:03 PM BANQUET STEWARDESS Oxygen Saturation 92% 03/15/2019 3:03 PM BANQUET STEWARDESS Inhaled Oxygen Concentration - - Weight 87.7 kg (193 lb 6.4 oz) 03/15/2019 3:03 P M BANQUET STEWARDESS Height - - Body Mass Index - - Plan of Treatment Health Maintenance Due Date Last Done Comments Colorectal Cancer Screening Colonoscopy (10 Years) 1955 Kidney Health Evaluation 1955 Hemoglobin A1C 1955 Lipid Panel 1955 Pneumococcal Vaccine: 65+ Ye ars (1 of 2 - PCV) 09/30/1961 Diabetes: Retinopathy Eye Exam 09/30/1973 Hepatitis C 09/30/1973 DTaP, Tdap and Td Vaccines ( 1 - Tdap) 09/30/1974 Mammogram Screening 1995 Zoster Vaccines (1 of 2) 09/30/2005 RSV Immunization or 60+ Years (1 - Risk 60-74 years 1-dose series) 2015 Dexa Scan (General) 09/30/2020 COVID-19 Vaccine ( - 2023-2 5 season) 2023 Influenza Adult (#1) 2023 01/11/2018 Meningococcal B Vaccine Aged Out No l onger eligible based on patient's age to complete this topic Meningococcal Vaccine Aged Out No maria esther janusz eligible based on patient's age to complete this topic RSV Immunizations Under 20 Months Aged Out No longer eligible based on patient's age to complete this topic Care Teams Warehouse Worker Relationship Specialty [place] [address] [place] [address] PCP - General FAMILY PRACTICE 03/15/19
--- OUTSIDE RECORDS SUMMARY | 2024-04-28 13:10 | XMS_ITS | Continuity of Care Document ---
Author Organization [facility] Address [address] [place] [address] utive [facility] [address] [place] [address] Phone Care Team Providers Care Shared Services Representative Name Role Phone Arshad OD, Jacob Unavailable Unavailable Procedures Procedure Date Eye Exam, New Patient Advance Directives Directive Yes / No Effective Date File Name No Information Encounters Encounter Description Practice Location Reason(s) For Visit Diagnoses Date Provider Providers Copied on Encounter [facility], [id number] [place] [address] [address], [place], [place], [id number], [place] tel:[phone] [facility] [place] No Information 8-200 9 Arshad OD Jacob. [address] [facility] [place] , [address], [place], [address], [place]. tel:[phone] Referring Provider: Jareth Garcia MD [place], [address] [place] [address], [address]. tel:[phone] Family History Family Member Type Diagnosis Age At Onset No Information Payers Payer name Insurance type Covered constitution party ID Authoriza tijairon(s) [facility] Commercial CI [id number] Social History Type Description Quantity Date Captured [...]
== END 2024-04-28 12:21 | disposition home or self-care (01) ==
LOC: ANHIMG 12:25
PROVIDERS: PCP Family Medicine; Visit Provider Nurse Practitioner
DX: R19.8 Other specified symptoms and signs involving the digestive system and abdomen (principal); K59.09 Other constipation; R19.12 Hyperactive bowel sounds; R10.84 Generalized abdominal pain
CPT/HCPCS: 74018

== ENCOUNTER 2024-06-08 10:38 | Outpatient (CLI) | payer MEDICARE, SELFPAY ==
--- NOTE | ~2024-06-08 | CT_ITS ---
CT of the Abdomen and Pelvis: Indication: Abdominal pain Technique: 2.5 mm axial scans were obtained through the abdomen and pelvis following intravenous adm inistration of 100 cc of Omnipaque 350. Dose reduction technique was used on this scan by utilizing a utomated exposure control and iterative reconstruction technique. The dose-length product (DLP) was 1 060.00 mGy-cm. COMPARISON: 08/20/2022 Findings: Scans through the lung bases demonstrate mild right basilar atelectasis. The liver, spleen, pancreas, adrenals and kidneys are within normal limits. Small gallstones present. There are atherosclerotic calcifications of the aorta. No lymphadenopathy. No bowel obstruction or bowel wall thickening. There is no evidence to suggest acute appendicitis. Images through the pelvis were performed. Urinary bladder unremarkable. No pelvic mass seen. No ascit es. Impression: No acute abnormalities seen. Cholelithiasis. Reviewed, dictated and finalized at [facility]. Impression: No acute abnormalities seen. Cholelithiasis.
[2024-06-08 11:07] LABS: Estimated Glomerular Filt Rate 45
--- OUTSIDE RECORDS SUMMARY | 2024-06-08 12:09 | XMS_ITS ---
Author Organization [facility] Care Team Providers Care Mechanism Assembler Name Role Phone Vamshi Dixon Unavailable Unavailable Care Team Name Role Address Phone Organization Dates Vamshi Destiny PCP [address] [place], [address], [place] (Office): : [facility] 04/01/2019 - 05/07/2019 Mental Status Section Date Assessment Total Score Description 05/07/2019 BIMS 15 cognitively int act CAM 0 No delirium ind icated PHQ-9 00 04/07/2019 BIMS 14 cognitively int act CAM 0 No delirium ind icated PHQ-9 00 Problems Problem # Description Date of onset Resolved Date Code CodeSystem Concern Status 1 ACUTE AND CHRONIC RESPIRATORY FAILURE WITH HYPOXIA 04/01/[id number] active 2 ACUTE EMBOLISM AND THROMBOSIS OF UNSPECIFIED DEEP VEINS OF UNSPECIFIED LOWER EXTREMITY 04/01/[address] active 3 ALTERED MENTAL STATUS, UNSPECIFIED 04/01/[address] active 4 HEART FAILURE, UNSPECIFIED 04/01/[address] active 5 MUSCLE WEAKNESS (GENERALIZED) 04/01/[address] active 6 RETENTION OF URINE, UNSPECIFIED 04/01/[address] active 7 TYPE 2 DIABETES MELLITUS WITHOUT COMPLICATIONS 04/01/[address] active 8 DIFFICULTY IN WALKING, NOT ELSEWHERE CLASSIFIED 12/06/[address] active 9 ESSENTIAL (PRIMARY) HYPERTENSION 12/06/[address] active 10 Type 2 diabetes mellitus without complications 12/06/[address] active Reason for Referral No Reasons for Referral Entered Social History Social History Observation Description Start Date End Date Code Code System Current Smoking Status Tobacco smoking consumption unknown 798801090 SNOMED CT Sex Assigned At Female 1955 18978-7 [facility] Vital Signs Code Code System Vitals Name Values and Units Timing Information 92628-7 [facility] Weight Rfzen=808.4 Units=Lbs 06/2019
--- OUTSIDE RECORDS SUMMARY | 2024-06-08 12:09 | XMS_ITS ---
Author Organization [facility] Care Team Providers Care Icer Machine Name Role Phone Angel Buckner Unavailable Unavailable Allergies and adverse reactions Code CodeSystem Substance Reaction Severity StartDate Concern Status salmeterol Unknown 03/11/2019 active pimecrolimus Unknown 03/11/2019 active Fluticasone Unknown 03/11/2019 active DIAZEPAM Unknown 03/11/2019 active Adhesive tape Unknown 03/11/2019 active Care Team Name Role Address Phone Organization Dates Angel Buckner PCP [address] [place], [place], [facility], [place] (Office): : [facility] 03/11/2019 - 03/24/2019 Goals Section Description Status Target Date Decrease risk of fall and/or minimize injuries from falls x 90 days Active 03/29/2019 I will express satisfaction with my daily routine through review date. Active 03/29/2019 Resident will be empowered t o make independent leisure choices daily and will be offered room visit check-ins 3 X weekly through next review. Active 03/29/2019 Resident will have no advers e side effects from medications to control hyperlipidemia. Active 03/29/2019 Resident will participate wi th ADL's daily and ADL status will improve by target date Active 03/29/2019 Resident wishes will be honored thru next review Active 03/29/2019 Resident's spiritual needs will be met weekly th rough next review. Active 03/29/2019 The resident will have no co mplications from skin issues through the review date Active 03/29/2019 The resident will have no co mplications related to diabetes through the review date. Active 03/29/2019 The resident will maintain a cceptable level of comfort through review date. Active 03/29/2019 The resident will maintain n ormal breathing pattern as evidenced by normal respirations, normal skin color, and regular respiratory rate/pattern through the review date Active 03/29/2019 The resident will remain juan antonio e from discomfort, complications or s/sx related to dx of GERD through review date Active 019 The resident will remain juan antonio e of complications related to hypertension through review date Active 03/29/2019 The resident will remain juan antonio e of s/sx or complications related to anemia through review date Active 03/29/2019 The resident will verbalize less difficulty breathing (Dyspnea) and be more comfortable through the review date. Active 03/29 Will adjust to environment a nd participate in Therapeutic Rehab Program and return to prior living arrangements through review date Active 03/29/2019 Will adjust to facility and participate in facility and participate in care to return to prior level of care through review date Active 03/29/2019 Immunizations Immunization Status Vaccine Details Vaccine Code CodeSystem Chalino e Notes Influenza normal Influenza, high-dose, split virus, quadrivalent, injectable, preservative free 197 CVX created date: 03/15/2019 consent date: 03/15/2019 Prevnar 23 normal created d ate: 03/15/2019 consent date: 03/15/2019 Mental Status Section Date Assessment Total Score Description 03/24/2019 CAM 2 Delirium indica kt 03/18/2019 BIMS 13 cognitively int act CAM 0 No delirium ind icated PHQ-9 03 minimal depress ion Problems Problem # Description Date of onset Resolved Date Code CodeSystem Concern Status 1 ANEMIA, UNSPECIFIED 03/14/[address] active 2 MAJOR DEPRESSIVE DISORDER, RECURRENT, UNSPECIFIED 03/14/[address] active 3 ACUTE EMBOLISM AND THROMBOSIS OF UNSPECIFIED DEEP VEINS OF UNSPECIFIED LOWER EXTREMITY 03/11/[address] active 4 CHRONIC DUODENAL ULCER WITHOUT HEMORRHAGE OR PERFORATION 03/11/[address] active 5 CHRONIC RESPIRATORY FAILURE WITH HYPERCAPNIA 03/11/[address] active 6 ESSENTIAL (PRIMARY) HYPERTENSION 03/11/[address] active 7 GASTRO-ESOPHAGEAL REFLUX DISEASE WITHOUT ESOPHAGITIS 03/11/[address] active 8 HEART FAILURE, UNSPECIFIED 03/11/[address] active 9 IRRITABLE BOWEL SYNDROME, UNSPECIFIED 03/11/[address] active 10 MIXED HYPERLIPIDEMIA 03/11/[address] active 11 NONRHEUMATIC MITRAL (VALVE) PROLAPSE 03/11/[address] active 12 OTHER ABNORMALITIES OF BREATHING 03/11/[address] active 13 SLEEP APNEA, UNSPECIFIED 03/11/[address] active 14 SPINAL STENOSIS, LUMBAR REGION WITHOUT NEUROGENIC CLAUDICATION 03/11/[address] active 15 TYPE 2 DIABETES MELLITUS WITH DIABETIC NEUROPATHY, UNSPECIFIED 03/11/[address] active 16 TYPE 2 DIABETES MELLITUS WITHOUT COMPLICATIONS 03/11/[address] active 17 UNSPECIFIED OSTEOARTHRITIS, UNSPECIFIED SITE 03/11/[address] active Reason for Referral No Reasons for Referral Entered Social History Social History Observation Description Start Date End Date Code Code System Current Smoking Status Tobacco smoking consumption unknown 745118037 SNOMED CT Sex Assigned At Female 1955 74622-4 [facility] Vital Signs Code Code System Vitals Name Values and Units Timing Information 9279-1 [facility] Respiratory Rate Value=22.0 Units=/m in 03/24/2019 8310-5 INC Body Temperature Value=98.2 Units= F 03/24/2019 8867-4 [facility] Heart rate Value=55.0 Units=/min 8462-4 [facility] Blood Pressure-Diastolic Value=71 Un its=mmHg 03/24/2019 8480-6 [facility] Blood Pressure-Systolic Uyleo=714 Un its=mmHg 03/24/2019 98816-7 INC O2 % BldC Oximetry Value=99.0 Units= % 03/24/2019 64318-1 [facility] Weight Mebhm=912.8 Units=Lbs 14161-9 INC Pain Level Value=0.0 03/23/2019 8302-2 [facility] Height Value=60.0 Units=Inches 03/11/2019
--- OUTSIDE RECORDS SUMMARY | 2024-06-08 12:09 | XMS_ITS | Continuity of Care Document ---
Author Name Auto Generated, Auto Generated Organization [facility] Support Name Relationship Address Phone Kim Sanchez Daughter [address] [place] [address] Unavailable Be Choe Brother [address] [place] [address] Unavailable Raffy Choe Brother [address] [place] [address] Odette Olson Financial Responsible Libertarian [address] [place] [address] Odette Olson Self [address] [place] [address] Summary Purpose Consult/Referral Allergies, Adverse Reactions, Alerts Type Description/Agent Code Date Allergy Active Date Allergy Inactivated Date of Last Reaction Adverse Reactions Severity Status Comments Source of Information FDB Medic ation Ingre dient tape, occlusive adhesive Active Patient History FDB Medic ation Ingre dient diazepam Active Patient History Medications No Known Medications Conditions/Problems Problem/Diagnosis Awareness of Diagnosis Code (ICD-10) Onset Date (Start Date) Resolution Date (End Date) Status Source Comments ACUTE AND CHRONIC RESPIRATORY FAILURE WITH HYPOXIA J96.21 03/08/20 18 Active MD Mikel Bravo ACUTE AND CHRONIC RESPIRATORY FAILURE WITH HYPERCAPNIA J96.22 03/08/20 18 Active MD Mikel Bravo CHRONIC OBSTRUCTIVE PULMONARY DISEASE, UNSPECIFIED J44.9 03/08/20 18 Active MD Mikel Bravo MORBID (SEVERE) OBESITY WITH ALVEOLAR HYPOVENTILATION E66.2 03/08/20 18 Active MD Mikel Bravo HYPERTENSIVE HEART DISEASE WITH HEART FAILURE I11.0 03/08/20 18 Active MD Mikel Bravo ACUTE ON CHRONIC DIASTOLIC (CONGESTIVE) HEART FAILURE I50.33 03/08/20 18 Active MD Mikel Bravo OBSTRUCTIVE SLEEP APNEA (ADULT) (PEDIATRIC) G47.33 03/08/20 18 Active MD Mikel Bravo PATIENT'S NONCOMPLIANCE WITH OTHER MEDICAL TREATMENT AND REGIMEN Z91.19 03/08/20 18 Active MD Mikel Bravo refuses [place] treatment TYPE 2 DIABETES MELLITUS WITHOUT COMPLICATIONS E11.9 03/08/20 18 Active MD Mikel Bravo FDC (CURRENT) USE OF ASPIRIN Z79.82 03/08/20 18 MD Mikel Ackerman DEPENDENCE ON SUPPLEMENTAL OXYGEN Z99.81 03/08/20 18 MD Mikel Ackerman PERSONAL HISTORY OF OTHER VENOUS THROMBOSIS AND EMBOLISM Z86.718 03/08/20 18 MD Mikel Ackerman SPONDYLOSIS WITHOUT MYELOPATHY OR RADICULOPATHY, CERVICAL REGION M47.812 03/08/20 18 MD Mikel Ackerman OTHER CHRONIC PAIN G89.29 03/08/20 18 MD Mikel Ackerman IRRITABLE BOWEL SYNDROME, UNSPECIFIED K58.9 03/08/20 18 MD Mikel Ackerman RETENTION OF URINE, UNSPECIFIED R33.9 03/08/20 18 Active MD Mikel Bravo DIAPHRAGMATIC HERNIA WITHOUT OBSTRUCTION OR GANGRENE K44.9 03/08/20 18 MD Mikel Ackerman GASTRO-ESOPHAGEAL REFLUX DISEASE WITHOUT ESOPHAGITIS K21.9 03/08/20 18 MD Mikel Ackerman PERSONAL HISTORY OF PEPTIC ULCER DISEASE Z87.11 03/08/20 18 MD Mikel Ackerman HYPOMAGNESEMIA E83.42 03/08/20 18 MD Mikel Ackerman ALLERGIC RHINITIS, UNSPECIFIED J30.9 03/08/20 18 MD Mikel Ackerman BENIGN PAROXYSMAL VERTIGO, UNSPECIFIED EAR H81.10 03/08/20 18 MD Mikel Ackerman FATTY (CHANGE OF) LIVER, NOT ELSEWHERE CLASSIFIED K76.0 03/08/20 18 MD Mikel Ackerman DEFICIENCY OF OTHER SPECIFIED B GROUP VITAMINS E53.8 03/08/20 18 MD Mikel Ackerman Procedures No Known Procedures
--- OUTSIDE RECORDS SUMMARY | 2024-06-08 12:09 | XMS_ITS | Clinical Summary ---
Author Organization [facility] Address [facility] [place] [address] Care Team Providers Care Sustainability Project Coordinator Name Role Phone Angel Buckner MD Primary Care Provider [phone] Medications albuterol (2.5 MG/3ML) 0.083% nebulizer solution 01/14/2019 Active budesonide 0.25 MG/2ML nebulizer solution 01/14/2019 Active cyclobenzaprine 10 MG tablet 11/17/2018 Active furosemide 40 MG tablet 11/17/2018 Active ipratropium 0.02 % nebulizer solution 03/11/2019 Active metFORMIN ER 500 MG 24 hr tablet 11/17/2018 Act ralph metoprolol tartrate 100 MG tablet 02/21/2019 Active montelukast 10 MG tablet 01/14/2019 Active NYSTATIN 591452 UNIT/GM powder 03/02/2019 Acti ve ondansetron 4 MG tablet 01/16/2019 Active pantoprazole EC 40 MG tablet 02/21/2019 Active potassium chloride 20 MEQ packet 05/03/2018 Activ e theophylline ER 450 MG 12 hr tablet 05/13/2018 Active Active Problems Problem Noted Date Diagnosed Date Acute systolic congestive heart failure ([facility]) 03/26/2019 Essential hypertension 03/26/2019 Other hyperlipidemia 03/26/2019 Type 2 diabetes mellitus wit hout complication, with long-term current use of insulin ([facility]) 03/26/2019 Social History Tobacco Use Types Packs/Day Years Used Date Smoking Tobacco: Never Assessed Comments Unknown Sex and Gender Information Value Date Recorded Sex Assigned at Not on file Legal Sex Female 8:42 AM COMMUNITY NURSE Gender Identity Not on file Sexual Orientation Not on file Last Filed Vital Signs Vital Sign Reading Time Taken Comments Blood Pressure 141/92 03/15/2019 3:03 PM COMMUNITY NURSE Pulse 87 03/15/2019 3:03 PM COMMUNITY NURSE Temperature 36.9 C (98.4 F) 03/15/2019 3:03 PM COMMUNITY NURSE Respiratory Rate 20 03/15/2019 3:03 PM COMMUNITY NURSE Oxygen Saturation 92% 03/15/2019 3:03 PM COMMUNITY NURSE Inhaled Oxygen Concentration - - Weight 87.7 kg (193 lb 6.4 oz) 03/15/2019 3:03 P M COMMUNITY NURSE Height - - Body Mass Index - [...] age to complete this topic Care Teams Sustainability Project Coordinator Relationship Specialty [place] [address] [place] [address] PCP - General FAMILY PRACTICE 03/15/19
--- OUTSIDE RECORDS SUMMARY | 2024-06-08 12:09 | XMS_ITS | Continuity of Care Document ---
Author Organization [facility] Address [address] [place] [address] utive [facility] [address] [place] [address] Phone Care Team Providers Care Film Projector Operator Name Role Phone Arshad OD, Jacob Unavailable Unavailable Procedures Procedure Date Eye Exam, New Patient Advance Directives Directive Yes / No Effective Date File Name No Information Encounters Encounter Description Practice Location Reason(s) For Visit Diagnoses Date Provider Providers Copied on Encounter [facility], [address] [place] [address] [address], [place], [place], [id number], [place] tel:[phone] [facility] [place] No Information 8-200 9 Arshad OD Jacob. [address] [facility] [place] , [address], [place], [address], [place]. tel:[phone] Referring Provider: Jareth Garcia MD [facility], [address] [place] [address], [address]. tel:[phone] Family History Family Member Type Diagnosis Age At Onset No Information Payers Payer name Insurance type Covered libertarian ID Authoriza tijairon(s) [facility] Commercial CI [id number] Social History Type Description Quantity Date Captured [...]
== END 2024-06-08 10:39 | disposition home or self-care (01) ==
PROVIDERS: PCP Family Medicine; Visit Provider Nurse Practitioner
DX: R10.84 Generalized abdominal pain (principal); R14.0 Abdominal distension (gaseous); K80.20 Calculus of gallbladder without cholecystitis without obstruction
CPT/HCPCS: 74177; Q9967

== ENCOUNTER 2024-07-06 10:56 | Outpatient (CLI) | payer MEDICARE, SELFPAY ==
--- NOTE | ~2024-07-06 | NM_ITS ---
EXAMINATION: NM hepatobiliary w pharm DATE: 07/06/2024 13:43 INDICATION: Left upper quadrant abdominal pain. COMPARISON: None. TECHNIQUE: 5 mCi Tc-99m mebrofenin (Choletec) was administered intravenously. Scintigraphic images o f the abdomen were obtained for one hour. 0.8 mcg sincalide (Kinevac) was administered by slow intrav enous infusion, and imaging was continued for 30 minutes. Gallbladder ejection fraction was calculate d by the technologist. FINDINGS: There is normal clearance of radiotracer from the blood pool. There is homogeneous tracer uptake by t he liver. Activity progresses to the gallbladder and bowel. The gallbladder ejection fraction (GBEF) is 88% (normal 10-90%, but most patient with gallbladder dysfunction have GBEF < 35% which does over lap with the normal range). IMPRESSION: 1. Normal hepatobiliary scan. Reviewed, dictated and finalized at location B.
--- OUTSIDE RECORDS SUMMARY | 2024-07-06 12:41 | XMS_ITS | Clinical Summary ---
Author Organization [facility] Address [facility] [place] [address] Care Team Providers Care Shrimp Trawler Name Role Phone Angel Buckner MD Primary Care Provider [phone] Medications albuterol (2.5 MG/3ML) 0.083% nebulizer solution 01/14/2019 Active budesonide 0.25 MG/2ML nebulizer solution 01/14/2019 Active cyclobenzaprine 10 MG tablet 11/17/2018 Active furosemide 40 MG tablet 11/17/2018 Active ipratropium 0.02 % nebulizer solution 03/11/2019 Active metFORMIN ER 500 MG 24 hr tablet 11/17/2018 Act ralph metoprolol tartrate 100 MG tablet 02/21/2019 Active montelukast 10 MG tablet 01/14/2019 Active NYSTATIN 918012 UNIT/GM powder 03/02/2019 Acti ve ondansetron 4 MG tablet 01/16/2019 Active pantoprazole EC 40 MG tablet 02/21/2019 Active potassium chloride 20 MEQ packet 05/03/2018 Activ e theophylline ER 450 MG 12 hr tablet 05/13/2018 Active Active Problems Problem Noted Date Diagnosed Date Acute systolic congestive heart failure ([facility]) 03/26/2019 Essential hypertension 03/26/2019 Other hyperlipidemia 03/26/2019 Type 2 diabetes mellitus wit hout complication, with long-term current use of insulin ([facility]) 03/26/2019 Social History Tobacco Use Types Packs/Day Years Used Date Smoking Tobacco: Never Assessed Comments Unknown Sex and Gender Information Value Date Recorded Sex Assigned at Not on file Legal Sex Female 8:42 AM MANAGER SALES Gender Identity Not on file Sexual Orientation Not on file Last Filed Vital Signs Vital Sign Reading Time Taken Comments Blood Pressure 141/92 03/15/2019 3:03 PM MANAGER SALES Pulse 87 03/15/2019 3:03 PM MANAGER SALES Temperature 36.9 C (98.4 F) 03/15/2019 3:03 PM MANAGER SALES Respiratory Rate 20 03/15/2019 3:03 PM MANAGER SALES Oxygen Saturation 92% 03/15/2019 3:03 PM MANAGER SALES Inhaled Oxygen Concentration - - Weight 87.7 kg (193 lb 6.4 oz) 03/15/2019 3:03 P M MANAGER SALES Height - - Body Mass Index - [...] 2015 Dexa Scan (General) 09/30/2020 COVID-19 Vaccine (1 - 2023-2 5 season) 2023 Meningococcal B Vaccine Aged Out No l onger eligible based on patient's age to complete this topic Meningococcal Vaccine Aged Out No maria esther janusz eligible based on patient's age to complete this topic RSV Immunizations Under 20 Months Aged Out No longer eligible based on patient's age to complete this topic Care Teams Shrimp Trawler Relationship Specialty [place] [address] [place] [address] PCP - General FAMILY PRACTICE 03/15/19
--- OUTSIDE RECORDS SUMMARY | 2024-07-06 12:41 | XMS_ITS ---
Author Name Mikel Bravo Address [address] [place] [address] Phone [phone] [facility] [employer] [facility] ices Address [address] [facility] [place] [address] Phone [phone] Care Team Providers Care Roller Leveler Name Role Phone Mikel Bravo Unavailable [phone] Rima Nunez Unavailable [phone] Pushpa Alvarez Unavailable [phone] Cherrie Fierro Unavailable Functional Status Mental Status Allergies and Intolerances Medications Problems Reason for Referral Past Medical History
--- OUTSIDE RECORDS SUMMARY | 2024-07-06 12:41 | XMS_ITS ---
Author Name Mikel Bravo Mark Address [address] [place] [address] Phone [phone] [facility] ices Address [address] [place] [address] Phone [phone] Care Team Providers Care Radiology Specialist Name Role Phone Mikel Bravo Unavailable Rima Nunez Unavailable [phone] Pushpa Alvarez Unavailable [phone] Cherrie Fierro Unavailable Functional Status No Results Mental Status No Results Allergies and Intolerances Name Onset Date Reaction Severity tape, occlusive adhesive (Allergy) ThuMar 08 18 :09:00 2017 diazepam (Allergy) ThuMar 08 18:09:00 2017 Medications Medication Directions Start Date End Date theophylline ER 450 mg tablet,extended release,12 hr 450mg TABLET, EXTENDED RELEASE 12 HR Oral 1 Time Daily ThuMar 22 12:00:00 2017Mar 22 01:00:00 2017 Mucinex 600 mg tablet, extended release 600mg TABLET, EXTENDED RELEASE 12 HR Oral 1 Time Daily Congestion ThuMar 18 14:00:00 2017Mar 22 01:00:00 2017 Doug-24 400 mg capsule,extended release 400mg CAPSULE, EXT RELEASE 24 HR Oral 1 Time Daily ThuMar 15 17:00:00 2017Mar 22 01:00:00 2017 Doug-24 300 mg capsule,extended release 300mg CAPSULE, EXT RELEASE 24 HR Oral 1 Time Daily ThuMar 11 09:00:00 2017Mar 15 17:21:00 2017 TUBErsol 5 tub. unit/0.1 mL intradermal injection solution 0.1 ml VIAL (ML) Intradermal 1 Time Weekly for 2 Weeks (PPD) 1st injection upon admission. Read between 48 and 72 hours and give 2nd injection 1 week after the 1st if result is negative. If positive result, proceed with chest x-ray to rule out active disease. ThuMar 09 11:00:00 2017Mar 22: 2018 TUBErsol 5 tub. unit/0.1 mL intradermal injection solution Read Results VIAL (ML) Other 1 Time Weekly for 2 Weeks Read results between 48-72 hours after 1st and 2nd 1 week apart. If positive do chest x-ray to rule out active disease. ThuMar 09 11:00:00 2017Mar 22:: 2018 ProAir HFA 90 mcg/actuation aerosol inhaler 2 puffs HFA AEROSOL WITH ADAPTER (GRAM) Inhalation PRN Every 4 Hours ThuMar 09 15:00:00 2017Mar 22:00:00 2018 Colace 100 mg capsule 1 capsule CAPSULE Oral PRN 1 Time Daily constipation ThuMar 09:00:2017Mar 22::00 2018 senna 8.6 mg tablet 1 tab TABLET Oral WY N 1 Time Daily contsipation ThuMar 09 15:00:00 2017Mar 22:00:00 2017 calcium polycarbophil 625 mg tablet 1 tab TABLET Oral 1 Time Daily thuMar 10 09:00:00 2017Mar 22::00 2017 enoxaparin 40 mg/0.4 mL subcutaneous syringe 1 SYRINGE (ML) Subcutaneous 1 Time Daily for 7 Days ThuMar 09:00:2017Mar 16 08:59:00 2018 furosemide 40 mg tablet 1 TABLET Oral 1 Time Daily for 30 Days ThuMar 09:00:00 2017Mar 22:00:00 2018 acetaminophen 325 mg tablet 2 TABLET Oral PRN Mar 08:00:2017Mar 22::00 2017 aspirin 81 mg tablet,delayed release 1 TABLET, DELAYED RELEASE (ENTERIC COATED) Oral 1 Time Daily ThuMar 09 09:00:00 2017Mar 22:00:00 2017 calcium carbonate 600 mg (1,500 mg)-vitamin D3 400 unit tablet 1 TABLET Oral 1 Time Daily ThuMar 08 21:00:00 EST 2018 Mon Dec 24 01:00:00 EST 2018 cyanocobalamin (vit B-12) 1,000 mcg tablet 1 TABLET Oral 1 Time Daily ThuMar 09 09:00:00 EST 2017Mar 10 16:30:00 EST 2018 cyclobenzaprine 10 mg tablet 1 TABLET Or al PRN 2 Times Daily ThuMar 08 01:00:00 EST 2017Mar 22:00:00 EST 2018 fluticasone 50 mcg/actuation nasal spray,suspension 2 spray SPRAY, SUSPENSION Intranasal 1 Time Daily ThuMar 09 09:00:00 EST 2017Mar 22:00:00 EST 2018 hyoscyamine sulfate 0.125 mg tablet 1 TABLET Oral 3 Times Daily ThuMar 09 09:00:00 EST 2017Mar 22:00:00 EST 2018 magnesium oxide 400 mg capsule 1 CAPSULE Oral 1 Time Daily ThuMar 09 09:00:00 EST 2017Mar 22:00:00 EST 2018 metaxalone 800 mg tablet 1 TABLET Oral P RN 3 Times Daily ThuMar 08:00:00 EST 2017Mar 22:00:00 EST 2018 metFORMIN 500 mg tablet 1 TABLET Oral 2 Times Daily ThuMar 09:00:00 EST 2017Mar 22:00:00 EST 2018 metoprolol tartrate 100 mg tablet 1 TABLET Oral 2 Times Daily ThuMar 08 17:00:00 2017Mar 22:00:00 EST 2018 montelukast 10 mg tablet 1 TABLET Oral 1 Time Daily ThuMar 09:00:00 EST 2017Mar 22:00:00 EST 2018 multivitamin tablet 1 TABLET Oral 1 Time Daily ThuMar 09 09:00:00 EST 2017Mar 22:00:00 EST 2018 pantoprazole 40 mg tablet,delayed release 1 TABLET, DELAYED RELEASE (ENTERIC COATED) Oral 1 Time Daily ThuMar 09 07:00:00 EST 2017Mar 22:00:00 EST 2018 Lyrica 150 mg capsule 150 mg 1 CAPSULE O ral 2 Times Daily ThuMar 09 09:00:00 EST 2017Mar 22:00:00 EST 2018 Saline Nasal 0.65 % spray aerosol 2 sprays AEROSOL, SPRAY (ML) Intranasal 1 Time Daily ThuMar 09 09:00:00 EST 2017Mar 22 01:00:00 EST 2018 Doug-24 200 mg capsule,extended release 1 CAPSULE, EXT RELEASE 24 HR Oral 1 Time Daily ThuMar 09 09:00:00 2017Mar 10 16:30:00 2017 triamcinolone acetonide 0.1 % topical cream 1 application CREAM (GRAM) Topical 1 Time Daily ThuMar 09 17:00:00 2017Mar 10 18:30:00 2017 Problems Active Concerns * Acute and chronic respiratory failure with hypoxia* Code: * Start Date: ThuMar 08 00:00:00 2017 * End Date: * Text: * Acute and chronic respiratory failure with hypercapnia* Code: * Start Date: ThuMar 08 00:00:00 2017 * End Date: * Text: * Chronic obstructive pulmonary disease, unspecified* Code: * Start Date: ThuMar 08 00:00:00 2017 * End Date: * Text: * Morbid (severe) obesity with alveolar hypoventilation* Code: * Start Date: ThuMar 08::00 2017 * End Date: * Text: * Hypertensive heart disease with heart failure* Code: * Start Date: ThuMar 08:00:00 2017 * End Date: * Text: * Acute on chronic diastolic (congestive) heart failure* Code: * Start Date: ThuMar 08:00:00 2017 * End Date: * Text: * Obstructive sleep apnea (adult) (pediatric)* Code: * Start Date: ThuMar 08:00:00 2017 * End Date: * Text: * Patient's noncompliance with other medical treatment and regimen* Code: * Start Date: ThuMar 08:00:00 2017 * End Date: * Text: * Type 2 diabetes mellitus without complications* Code: * Start Date: ThuMar 08 00:00:00 2017 * End Date: * Text: * group home (current) use of aspirin* Code: * Start Date: ThuMar 08 00:00:00 2017 * End Date: * Text: * Dependence on supplemental oxygen* Code: * Start Date: ThuMar 08 00:00:00 2017 * End Date: * Text: * Personal history of other venous thrombosis and embolism* Code: * Start Date: ThuMar 08:00:00 2017 * End Date: * Text: * Spondylosis without myelopathy or radiculopathy, cervical region* Code: * Start Date: ThuMar 08:00:00 2017 * End Date: * Text: * Other chronic pain* Code: * Start Date: ThuMar 08:00:00 2017 * End Date: * Text: * Irritable bowel syndrome, unspecified* Code: * Start Date: ThuMar 08:00:00 2017 * End Date: * Text: * Retention of urine, unspecified* Code: * Start Date: ThuMar 08:00:00 2017 * End Date: * Text: * Diaphragmatic hernia without obstruction or gangrene* Code: * Start Date: ThuMar 08:00:00 2017 * End Date: * Text: * Gastro-esophageal reflux disease without esophagitis* Code: * Start Date: ThuMar 08:00:00 2017 * End Date: * Text: * Personal history of peptic ulcer disease* Code: * Start Date: ThuMar 08::00 2017 * End Date: * Text: * Hypomagnesemia* Code: * Start Date: ThuMar 08::00 2017 * End Date: * Text: * Allergic rhinitis, unspecified* Code: * Start Date: ThuMar 08:00:00 2017 * End Date: * Text: * Benign paroxysmal vertigo, unspecified ear* Code: * Start Date: ThuMar 08:00:00 2017 * End Date: * Text: * Fatty (change of) liver, not elsewhere classified* Code: * Start Date: ThuMar 08:00:00 2017 * End Date: * Text: * Deficiency of other specified B group vitamins* Code: * Start Date: ThuMar 08:00:00 2017 * End Date: * Text: Reason for Referral Past Medical History
--- OUTSIDE RECORDS SUMMARY | 2024-07-06 12:41 | XMS_ITS | Continuity of Care Document ---
Author Organization [facility] Address [address] [place] [address] utive [facility] [address] [place] [address] Phone Care Team Providers Care Group Rooms Coordinator Name Role Phone Arshad OD, Jacob Unavailable Unavailable Procedures Procedure Date Eye Exam, New Patient Advance Directives Directive Yes / No Effective Date File Name No Information Encounters Encounter Description Practice Location Reason(s) For Visit Diagnoses Date Provider Providers Copied on Encounter [facility], [id number] [place] [address] [address], [place], [place], [id number], [place] tel:[phone] SEC [facility] [place] No Information 8-200 9 Arshad OD Jacob[address] [facility] [address] [place] , [address], [place], [address], [place]. tel:[phone] Referring Provider: Jareth Garcia MD [place], [address] [place] [address], [address]. tel:[phone] Family History Family Member Type Diagnosis Age At Onset No Information Payers Payer name Insurance type Covered alliance party ID Authoriza tijairon(s) [facility] Commercial CI [id number] Social History Type Description Quantity Date Captured [...]
== END 2024-07-06 10:57 | disposition home or self-care (01) ==
PROVIDERS: PCP Nurse Practitioner; Visit Provider Surgery
DX: K80.20 Calculus of gallbladder without cholecystitis without obstruction (principal); R10.12 Left upper quadrant pain; R10.9 Unspecified abdominal pain
CPT/HCPCS: 78227; A9537; J2805

== ENCOUNTER 2024-07-07 11:38 | Outpatient (CLI) | payer MEDICARE, SELFPAY ==
--- OUTSIDE RECORDS SUMMARY | 2024-07-07 12:27 | XMS_ITS | Continuity of Care Document ---
Author Organization [facility] Address [address] [place] [address] utive [facility] [address] [place] [address] Phone Care Team Providers Care Efficiency Expert Name Role Phone Arshad OD, Jacob Unavailable Unavailable Procedures Procedure Date Eye Exam, New Patient Advance Directives Directive Yes / No Effective Date File Name No Information Encounters Encounter Description Practice Location Reason(s) For Visit Diagnoses Date Provider Providers Copied on Encounter [facility], [id number] [place] [address] [address], [place], [place], [id number], [place] tel:[phone] [address] [facility] [place] No Information 8-200 9 Arshad OD Jacob. [address] [facility] [place] , [address], [place], [address], [place]. tel:[phone] Referring Provider: Jareth Garcia MD [place], [address] [place] [address], [address]. tel:[phone] Family History Family Member Type Diagnosis Age At Onset No Information Payers Payer name Insurance type Covered green party ID Authoriza tijairon(s) [facility] Commercial CI [id number] Social History Type Description Quantity Date Captured [...]
--- OUTSIDE RECORDS SUMMARY | 2024-07-07 12:27 | XMS_ITS ---
Author Name Mikel Bravo Mark Address [address] [place] [address] Phone [phone] [facility] ices Address [address] [place] [address] Phone [phone] Care Team Providers Care Manager Life Insurance Name Role Phone Mikel Bravo Unavailable [phone] Rima Nunez Unavailable [phone] Pushpa Alvarez Unavailable Cherrie Fierro Unavailable Functional Status No Results [...] 8.6 mg tablet 1 tab TABLET Oral HI N 1 Time Daily contsipation ThuMar 09 [...] 2017 * End Date: * Text: * superintendent container terminal (current) use of aspirin* Code: * Start [...]
--- OUTSIDE RECORDS SUMMARY | 2024-07-07 12:27 | XMS_ITS | Clinical Summary ---
Author Organization [facility] Address [facility] [place] [address] Care Team Providers Care Resource Recovery Engineer Name Role Phone Angel Buckner MD Primary Care Provider [phone] Medications albuterol (2.5 MG/3ML) 0.083% nebulizer solution 01/14/2019 Active budesonide 0.25 MG/2ML nebulizer solution 01/14/2019 Active cyclobenzaprine 10 MG tablet 11/17/2018 Active furosemide 40 MG tablet 11/17/2018 Active ipratropium 0.02 % nebulizer solution 03/11/2019 Active metFORMIN ER 500 MG 24 hr tablet 11/17/2018 Act ralph metoprolol tartrate 100 MG tablet 02/21/2019 Active montelukast 10 MG tablet 01/14/2019 Active NYSTATIN 620421 UNIT/GM powder 03/02/2019 Acti ve ondansetron 4 MG tablet 01/16/2019 Active pantoprazole EC 40 MG tablet 02/21/2019 Active potassium chloride 20 MEQ packet 05/03/2018 Activ e theophylline ER 450 MG 12 hr tablet 05/13/2018 Active Active Problems Problem Noted Date Diagnosed Date Acute systolic congestive heart failure ([facility]) 03/26/2019 Essential hypertension 03/26/2019 Other hyperlipidemia 03/26/2019 Type 2 diabetes mellitus wit hout complication, with long-term current use of insulin ([facility]) 03/26/2019 Social History Tobacco Use Types Packs/Day Years Used Date Smoking Tobacco: Never Assessed Comments Unknown Sex and Gender Information Value Date Recorded Sex Assigned at Not on file Legal Sex Female 8:42 AM MANAGER COSMETIC Gender Identity Not on file Sexual Orientation Not on file Last Filed Vital Signs Vital Sign Reading Time Taken Comments Blood Pressure 141/92 03/15/2019 3:03 PM MANAGER COSMETIC Pulse 87 03/15/2019 3:03 PM MANAGER COSMETIC Temperature 36.9 C (98.4 F) 03/15/2019 3:03 PM MANAGER COSMETIC Respiratory Rate 20 03/15/2019 3:03 PM MANAGER COSMETIC Oxygen Saturation 92% 03/15/2019 3:03 PM MANAGER COSMETIC Inhaled Oxygen Concentration - - Weight 87.7 kg (193 lb 6.4 oz) 03/15/2019 3:03 P M MANAGER COSMETIC Height - - Body Mass Index - [...] age to complete this topic Care Teams Resource Recovery Engineer Relationship Specialty [place] [address] [place] [address] PCP - General FAMILY PRACTICE 03/15/19
[2024-07-07 19:47] LABS: Blood Urea Nitrogen 21 mg/dL (7-17); Calcium 9.9 mg/dL (8.4-10.2); Carbon Dioxide > 40 mmol/L (22-30); Chloride 93 mmol/L (98-107); Estimated Glomerular Filt Rate 52; Glucose 129 mg/dL (65-110); Potassium 4.2 mmol/L (3.4-5.0); Sodium 140 mmol/L (137-145)
[2024-07-07 19:51] LABS: NT Pro B Type Natriuretic Pept 203 pg/mL (19.9-100)
[2024-07-07 20:24] LABS: Hemoglobin A1C 6.9 % (<5.7)
[2024-07-07 21:25] LABS: Folic Acid > 20.0 ng/mL (2.76->20); Vitamin B12 > 1000.0 pg/mL (239-931)
== END 2024-07-07 11:39 | disposition home or self-care (01) ==
LOC: ANHGOSHLAB 11:39
PROVIDERS: PCP Nurse Practitioner; Visit Provider Nurse Practitioner Family
DX: E11.9 Type 2 diabetes mellitus without complications (principal); R06.02 Shortness of breath; K14.0 Glossitis
CPT/HCPCS: 36415; 80048; 82607; 82746; 83036; 83880

== ENCOUNTER 2024-07-07 11:59 | Outpatient (CLI) | payer MEDICARE, SELFPAY ==
--- NOTE | ~2024-07-07 | CT_ITS ---
EXAMINATION: CT sinus wo con DATE: 07/07/2024 12:20 INDICATION: Sleep apnea TECHNIQUE: Computed tomography (CT) of the paranasal sinuses was performed without intravenous contra st. The dose-length product was 365.34 mGy-cm. Automated exposure control and iterative reconstructio n technique were employed. COMPARISON: 03/25/2019 FINDINGS: Leftward nasal septal deviation. Ostiomeatal units are patent bilaterally. No significant m ucosal thickening. No air-fluid levels. No mucoperiosteal reaction. Mastoids are pneumatized. IMPRESSION: 1. No significant sinus disease. Reviewed, dictated and finalized at location A.
== END 2024-07-07 12:00 | disposition home or self-care (01) ==
PROVIDERS: PCP Nurse Practitioner; Visit Provider Otolaryngology
DX: G47.33 Obstructive sleep apnea (adult) (pediatric) (principal); J30.2 Other seasonal allergic rhinitis; J32.2 Chronic ethmoidal sinusitis; R49.0 Dysphonia; J44.9 Chronic obstructive pulmonary disease, unspecified
CPT/HCPCS: 70486

== ENCOUNTER 2024-07-12 12:46 | Outpatient (NON) | payer MEDICARE, SELFPAY ==
--- OUTSIDE RECORDS SUMMARY | 2024-07-12 13:36 | XMS_ITS | Clinical Summary ---
Author Organization [facility] Address [facility] [place] [address] Care Team Providers Care Electronic System Engineer Name Role Phone Angel Buckner MD Primary Care Provider [phone] Medications albuterol (2.5 MG/3ML) 0.083% nebulizer solution 01/14/2019 Active budesonide 0.25 MG/2ML nebulizer solution 01/14/2019 Active cyclobenzaprine 10 MG tablet 11/17/2018 Active furosemide 40 MG tablet 11/17/2018 Active ipratropium 0.02 % nebulizer solution 03/11/2019 Active metFORMIN ER 500 MG 24 hr tablet 11/17/2018 Act ralph metoprolol tartrate 100 MG tablet 02/21/2019 Active montelukast 10 MG tablet 01/14/2019 Active NYSTATIN 442483 UNIT/GM powder 03/02/2019 Acti ve ondansetron 4 MG tablet 01/16/2019 Active pantoprazole EC 40 MG tablet 02/21/2019 Active potassium chloride 20 MEQ packet 05/03/2018 Activ e theophylline ER 450 MG 12 hr tablet 05/13/2018 Active Active Problems Problem Noted Date Diagnosed Date Acute systolic congestive heart failure ([facility]) 03/26/2019 Essential hypertension 03/26/2019 Other hyperlipidemia 03/26/2019 Type 2 diabetes mellitus wit hout complication, with long-term current use of insulin ([facility]) 03/26/2019 Social History Tobacco Use Types Packs/Day Years Used Date Smoking Tobacco: Never Assessed Comments Unknown Sex and Gender Information Value Date Recorded Sex Assigned at Not on file Legal Sex Female 8:42 AM PYTHON PROGRAMMER Gender Identity Not on file Sexual Orientation Not on file Last Filed Vital Signs Vital Sign Reading Time Taken Comments Blood Pressure 141/92 03/15/2019 3:03 PM PYTHON PROGRAMMER Pulse 87 03/15/2019 3:03 PM PYTHON PROGRAMMER Temperature 36.9 C (98.4 F) 03/15/2019 3:03 PM PYTHON PROGRAMMER Respiratory Rate 20 03/15/2019 3:03 PM PYTHON PROGRAMMER Oxygen Saturation 92% 03/15/2019 3:03 PM PYTHON PROGRAMMER Inhaled Oxygen Concentration - - Weight 87.7 kg (193 lb 6.4 oz) 03/15/2019 3:03 P M PYTHON PROGRAMMER Height - - Body Mass Index - - Plan of Treatment Health Maintenance Due Date Last Done Comments Colorectal Cancer Screening Colonoscopy (10 Years) 1955 Kidney Health Evaluation 1955 Hemoglobin A1C 1955 Lipid Panel 1955 Pneumococcal Vaccine: 50+ Ye ars (1 of 2 - PCV) [...] age to complete this topic Care Teams Electronic System Engineer Relationship Specialty [place] [address] [place] [address] PCP - General FAMILY PRACTICE 03/15/19
--- OUTSIDE RECORDS SUMMARY | 2024-07-12 13:36 | XMS_ITS ---
Author Name Mikel Bravo Address [address] [place] [address] Phone [phone] [facility] ices Address [address] [facility] [place] [address] Phone [phone] Care Team Providers Care C Consultant Name Role Phone Mikel Bravo Unavailable [phone] Rima Nunez Unavailable [phone] Pushpa Alvarez Unavailable [phone] Cherrie Fierro Unavailable Functional Status Mental Status Allergies and Intolerances Medications Problems Reason for Referral Past Medical History
--- OUTSIDE RECORDS SUMMARY | 2024-07-12 13:36 | XMS_ITS | Continuity of Care Document ---
Author Organization [facility] Address [address] [place] [address] utive [facility] [address] [place] [address] Phone Care Team Providers Care Ladle Liner Name Role Phone Arshad OD, Jacob Unavailable Unavailable Procedures Procedure Date Eye Exam, New Patient Advance Directives Directive Yes / No Effective Date File Name No Information Encounters Encounter Description Practice Location Reason(s) For Visit Diagnoses Date Provider Providers Copied on Encounter [facility], [address] [place] [address] [address], [place], [place], [id number], [place] tel:[phone] [address] [facility] [place] No Information 8-200 9 Arshad OD Jacob. [address] [facility] [place] , [address], [place], [address], [place]. tel:[phone] Referring Provider: Jareth Garcia MD [place], [address] [place] [address], [address]. tel:[phone] Family History Family Member Type Diagnosis Age At Onset No Information Payers Payer name Insurance type Covered libertarian ID Authoriza tijairon(s) [facility] Commercial CI [id number] Social History Type Description Quantity Date Captured [...]
--- OUTSIDE RECORDS SUMMARY | 2024-07-12 13:36 | XMS_ITS ---
Author Name Mikel Bravo Mark Address [address] [place] [address] Phone [phone] [employer] [facility] Address [address] [place] [address] Phone [phone] Care Team Providers Care Photographic Engineer Name Role Phone Mikel Bravo Unavailable [phone] Rima Nunez Unavailable [phone] Pushpa Alvarez Unavailable Cherrie Fierro Unavailable Functional [...] 8.6 mg tablet 1 tab TABLET Oral MI N 1 Time Daily contsipation ThuMar 09 [...] 2017 * End Date: * Text: * termite control representative (current) use of aspirin* Code: * Start [...]
[2024-07-12 19:13] LABS: MALB Creatinine Ratio 16.1 mg/g (0-30); Microalbumin Urine Random 12.2 mg/L (0-16.7)
== END 2024-07-12 12:47 | disposition home or self-care (01) ==
LOC: ANHGOSHLAB 12:47
PROVIDERS: PCP Family Medicine; Visit Provider Nurse Practitioner Family
DX: E11.9 Type 2 diabetes mellitus without complications (principal)
CPT/HCPCS: 82043

== ENCOUNTER 2024-07-26 13:45 | Outpatient (CLI) | payer MEDICARE, SELFPAY ==
--- NOTE | ~2024-07-26 | XR_ITS ---
EXAMINATION: XR UGI w kub DATE: 07/26/2024 15:00 INDICATION: Pelvic pain which radiates cranially, worse with prolonged episodes of standing. Not ente rally associated. Describes the pain as occurring for years . TECHNIQUE: The patient drank thick barium and thin barium. Fluoroscopy of the oropharynx, hypopharynx and esophagus was performed. Fluoroscopy exposure time was 1.4 minutes. The total number of images w as 71. The dose-area product was 32.4 Gy-cm^2. COMPARISON: Reference was made to examination abdomen and pelvis performed most recently 06/08/2024 an d dating back to 01/10/2023. Reference is also made to MRI examination of the pelvis, performed 2022 and ultrasound examinations of the pelvis performed most recently on 04/29/2023 and dating back t o 09/05/2005. FINDINGS: J2Ee Software Engineer imaging of the abdomen and pelvis demonstrates a nonspecific, nonobstructive bowel gas pattern. Severe degenerative disease of the lumbosacral spine is noted. Age-appropriate mineralization of the remainder of the visualized osseous structures. Initial evaluation in the lateral position is without penetration or aspiration. Trace tertiary contractions. Small hiatal hernia is present. There is no mass or stricture of the esophagus. There was no significant gastroesophageal reflux with provocative maneuvers. The distal stomach, pylorus, and proximal small bowel are unremarkable. IMPRESSION: Trace esophageal dysmotility. Small hiatal hernia. After review of patient's imaging performed prior to this examination, no findings within the pelvis to suggest pelvic congestion syndrome (as might be suggested with patient's history). The uterus is nodular and prominent for a patient of this age, consistent with fibroid disease (poste rior fibroid, to the right of midline), previously evaluated on both MRI and ultrasound (most recentl y on 04/29/2023). No imaging findings to explain patient's symptomatology, as detailed above. Reviewed, dictated and finalized at location [] IMPRESSION: Trace esophageal dysmotility. Small hiatal hernia. After review of patient's imaging performed prior to this examination, no findi ngs within the pelvis to suggest pelvic congestion syndrome (as might be sugges kt with patient's history). The uterus is nodular and prominent for a patient of this age, consistent with fibroid disease (posterior fibroid, to the right of midline), previously evalua kt on both MRI and ultrasound (most recently on 04/29/2023). No imaging findings to explain patient's symptomatology, as detailed above.
--- OUTSIDE RECORDS SUMMARY | 2024-07-26 14:59 | XMS_ITS | Clinical Summary ---
Author Organization [facility] Address [facility] [place] [address] Care Team Providers Care Java Software Name Role Phone Angel Buckner MD Primary Care Provider [phone] Medications albuterol (2.5 MG/3ML) 0.083% nebulizer solution 01/14/2019 Active budesonide 0.25 MG/2ML nebulizer solution 01/14/2019 Active cyclobenzaprine 10 MG tablet 11/17/2018 Active furosemide 40 MG tablet 11/17/2018 Active ipratropium 0.02 % nebulizer solution 03/11/2019 Active metFORMIN ER 500 MG 24 hr tablet 11/17/2018 Act ralph metoprolol tartrate 100 MG tablet 02/21/2019 Active montelukast 10 MG tablet 01/14/2019 Active NYSTATIN 961469 UNIT/GM powder 03/02/2019 Acti ve ondansetron 4 MG tablet 01/16/2019 Active pantoprazole EC 40 MG tablet 02/21/2019 Active potassium chloride 20 MEQ packet 05/03/2018 Activ e theophylline ER 450 MG 12 hr tablet 05/13/2018 Active Active Problems Problem Noted Date Diagnosed Date Acute systolic congestive heart failure ([facility]) 03/26/2019 Essential hypertension 03/26/2019 Other hyperlipidemia 03/26/2019 Type 2 diabetes mellitus wit hout complication, with long-term current use of insulin ([facility]) 03/26/2019 Social History Tobacco Use Types Packs/Day Years Used Date Smoking Tobacco: Never Assessed Comments Unknown Sex and Gender Information Value Date Recorded Sex Assigned at Not on file Legal Sex Female 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 Gender Identity Not on file Sexual Orientation Not on file Last Filed Vital Signs Vital Sign Reading Time Taken Comments Blood Pressure 141/92 03/15/2019 3:03 PM JOB PRINTER APPRENTICE Pulse 87 03/15/2019 3:03 PM JOB PRINTER APPRENTICE Temperature 36.9 C (98.4 F) 03/15/2019 3:03 PM JOB PRINTER APPRENTICE Respiratory Rate 20 03/15/2019 3:03 PM JOB PRINTER APPRENTICE Oxygen Saturation 92% 03/15/2019 3:03 PM JOB PRINTER APPRENTICE Inhaled Oxygen Concentration - - Weight 87.7 kg (193 lb 6.4 oz) 03/15/2019 3:03 P M JOB PRINTER APPRENTICE Height - - Body Mass Index - - Plan of Treatment Health Maintenance Due Date Last Done Comments Colorectal Cancer Screening Colonoscopy (10 Years) 1955 Kidney Health Evaluation 1955 Hemoglobin A1C 1955 Lipid Panel 1955 Diabetes: Retinopathy Eye Exam 09/30/1973 Hepatitis C 09/30/1973 DTaP, Tdap and Td Vaccines ( 1 - Tdap) 09/30/1974 Pneumococcal Vaccine: 50+ Ye ars (1 of 2 - PCV) 09/30/1974 Mammogram Screening 1995 Zoster Vaccines (1 [...] age to complete this topic Care Teams Java Software Relationship Specialty [place] [address] [place] [address] PCP - General FAMILY PRACTICE 03/15/19
--- OUTSIDE RECORDS SUMMARY | 2024-07-26 14:59 | XMS_ITS | Continuity of Care Document ---
Author Organization [facility] Address [address] [place] [address] utive [facility] [address] [place] [address] Phone Care Team Providers Care Merchandise Flow Associate Name Role Phone Arshad OD, Jacob Unavailable Unavailable Procedures Procedure Date Eye Exam, New Patient Advance Directives Directive Yes / No Effective Date File Name No Information Encounters Encounter Description Practice Location Reason(s) For Visit Diagnoses Date Provider Providers Copied on Encounter [facility], [id number] [place] [address] [address], [place], [place], [id number], [place] tel:[phone] [facility] [place] No Information 8-200 9 Arshad OD Jacob. [address] [facility] [place] , [address], [place], [address], [place]. tel:[phone] Referring Provider: Jareth Garcia MD [place], [address] [place] [address], [address]. tel:[phone] Family History Family Member Type Diagnosis Age At Onset No Information Payers Payer name Insurance type Covered green party ID Authoriza tijairon(s) [facility] Commercial CI [id number] Social History Type Description Quantity Date Captured [...]
--- OUTSIDE RECORDS SUMMARY | 2024-07-26 14:59 | XMS_ITS ---
Author Name Auto Generated, Auto Generated Organization [facility] Address [address] [place] [address] Phone [phone] Care Team Providers Care Watch And Clock Repair Clerk Name Role Phone Mikel Bravo Unavailable Nunez Rima Unavailable [phone] Pushpa Alvarez Unavailable SriEugeniaCherrie M Unavailable Functional Status No Results Mental Status [...] to rule out active disease. ThuMar 09 11::2017Mar 22:00: EST 2018 TUBErsol 5 tub. unit/0.1 mL intradermal injection solution Read Results VIAL (ML) Other 1 Time Weekly for 2 Weeks Read results between 48-72 hours after 1st and 2nd 1 week apart. If positive do chest x-ray to rule out active disease. ThuMar 09::2017Mar 22:: 2018 ProAir HFA 90 mcg/actuation aerosol inhaler 2 puffs HFA AEROSOL WITH ADAPTER (GRAM) Inhalation PRN Every 4 Hours ThuMar 09:00:2017Mar 22::2017 Colace 100 mg capsule 1 capsule CAPSULE Oral PRN 1 Time Daily constipation ThuMar 09::2017Mar 22:00:00 EST 2018 senna 8.6 mg tablet 1 tab TABLET Oral SD N 1 Time Daily contsipation ThuMar 09:00:2017Mar 22:00:00 2018 calcium polycarbophil 625 mg tablet 1 tab TABLET Oral 1 Time Daily fiber ThuMar 10 09:00:00 2017Mar 22:00:00 EST 2018 enoxaparin 40 mg/0.4 mL subcutaneous syringe 1 SYRINGE (ML) Subcutaneous 1 Time Daily for 7 Days ThuMar 09::2017Mar 16 08:59:00 2017 furosemide 40 mg tablet 1 TABLET Oral 1 Time Daily for 30 Days ThuMar 09:00:2017Mar 22:00:00 2017 acetaminophen 325 mg tablet 2 TABLET Oral PRN Mar 08:00:2017Mar 22:00:00 EST 2018 aspirin 81 mg tablet,delayed release 1 TABLET, DELAYED RELEASE (ENTERIC COATED) Oral 1 Time Daily ThuMar 09:00:2017Mar 22:00:00 2017 calcium carbonate 600 mg (1,500 mg)-vitamin D3 400 unit tablet 1 TABLET Oral 1 Time Daily ThuMar 08 21:00:00 2017Mar 22:00:00 EST 2017 cyanocobalamin (vit B-12) 1,000 mcg tablet 1 TABLET Oral 1 Time Daily ThuMar 09 09:00:00 EST 2017Mar 10 16:30:00 EST 2018 cyclobenzaprine 10 mg tablet 1 TABLET Or al PRN 2 Times Daily ThuMar 08 01:00:00 EST 2017Mar 22:00:00 EST 2018 fluticasone 50 mcg/actuation nasal spray,suspension 2 spray SPRAY, SUSPENSION Intranasal 1 Time Daily ThuMar 09 09:00:00 EST 2017Mar 22 01:00:00 EST 2018 hyoscyamine sulfate 0.125 mg tablet [...] 1 TABLET Oral 2 Times Daily ThuMar 09 09:00:00 EST 2017Mar 22:00:00 EST 2018 metoprolol tartrate 100 mg tablet 1 TABLET Oral 2 Times Daily ThuMar 08 17:00:00 EST 2017Mar 22:00:00 EST 2018 montelukast 10 mg tablet 1 TABLET Oral 1 Time Daily ThuMar 09 09:00:00 EST 2017Mar 22:00:00 EST 2018 multivitamin tablet 1 TABLET Oral 1 Time Daily ThuMar 09 09:00:00 EST 2017Mar 22 01:00:00 EST 2018 pantoprazole 40 mg tablet,delayed release 1 TABLET, DELAYED RELEASE (ENTERIC COATED) Oral 1 Time Daily ThuMar 09 07:00:00 EST 2017Mar 22:00:00 EST 2018 Lyrica 150 mg capsule 150 mg 1 CAPSULE O ral 2 Times Daily ThuMar 09 09:00:00 EST 2017Mar 22 01:00:00 EST 2018 Saline Nasal 0.65 % spray aerosol 2 sprays AEROSOL, SPRAY (ML) Intranasal 1 Time Daily ThuMar 09 09:00:00 EST 2017Mar 22 01:00:00 EST 2018 Doug-24 200 mg capsule,extended release 1 CAPSULE, EXT RELEASE 24 HR Oral 1 Time Daily ThuMar 09 09:00:00 EST 2017Mar 10 16:30:00 EST 2018 triamcinolone acetonide 0.1 % topical cream 1 application CREAM (GRAM) Topical 1 Time Daily ThuMar 09 17:00:00 2017Mar 10 18:30:00 2017 Problems Active Concerns * Acute and chronic respiratory failure with hypoxia* Code: * Start Date: ThuMar 08 00:00:00 2017 * End Date: * Text: * Acute and chronic respiratory failure with hypercapnia* Code: * Start Date: ThuMar 08:00:00 2017 * End Date: * Text: * Chronic obstructive pulmonary disease, unspecified* Code: * Start Date: ThuMar 08:00:00 2017 * End Date: * Text: * Morbid (severe) obesity with alveolar hypoventilation* Code: * Start Date: ThuMar 08 00:00:00 2017 * End Date: * Text: * Hypertensive heart disease with heart failure* Code: * Start Date: ThuMar 08::00 2017 [...] and regimen* Code: * Start Date: ThuMar 08 00:00:00 2017 * End Date: * Text: * Type 2 diabetes mellitus without complications* Code: * Start Date: ThuMar 08:00:00 2017 * End Date: * Text: * halfway (current) use of aspirin* Code: * Start Date: ThuMar 08:00:00 2017 [...] urine, unspecified* Code: * Start Date: ThuMar 08::00 2017 * End Date: * Text: * Diaphragmatic hernia without obstruction or gangrene* Code: * Start Date: ThuMar 08::00 2017 * End Date: * Text: * Gastro-esophageal reflux disease without esophagitis* Code: * Start Date: ThuMar 08::00 2017 * End Date: * Text: * Personal history of peptic ulcer disease* Code: * Start Date: ThuMar 08::00 2017 * End Date: * Text: * Hypomagnesemia* Code: * Start Date: ThuMar 08::00 2017 * End Date: * Text: * Allergic rhinitis, unspecified* Code: * Start Date: ThuMar 08::00 2017 [...]
--- OUTSIDE RECORDS SUMMARY | 2024-07-26 14:59 | XMS_ITS ---
Author Name Auto Generated, Auto Generated Organization [facility] Address [address] [place] [address] Phone [phone] Care Team Providers Care Artificial Flowers Starcher Name Role Phone Mikel Bravo Unavailable Nunez Rima Unavailable [phone] Pushpa Alvarez Unavailable [phone] SriEugeniaCherrie M Unavailable [phone] Functional Status No Results Mental Status No [...] 8.6 mg tablet 1 tab TABLET Oral MS N 1 Time Daily contsipation ThuMar 09:00:2017Mar [...] 2017 * End Date: * Text: * [facility] (current) use of aspirin* Code: * Start [...]
== END 2024-07-26 13:46 | disposition home or self-care (01) ==
PROVIDERS: PCP Family Medicine; Visit Provider Surgery
DX: R68.81 Early satiety (principal); K44.9 Diaphragmatic hernia without obstruction or gangrene
CPT/HCPCS: 74240

== ENCOUNTER 2024-08-29 12:38 | Outpatient (CLI) | payer MEDICARE, SELFPAY ==
--- OUTSIDE RECORDS SUMMARY | 2024-08-29 12:47 | XMS_ITS | Continuity of Care Document ---
Author Organization [facility] Address [address] [place] [address] utive [facility] [address] [place] [address] Phone Care Team Providers Care Podiatric Aide Name Role Phone Arshad OD, Jacob Unavailable Unavailable Procedures Procedure Date Eye Exam, New Patient Advance Directives Directive Yes / No Effective Date File Name No Information Encounters Encounter Description Practice Location Reason(s) For Visit Diagnoses Date Provider Providers Copied on Encounter [facility], [address] [place] [address] [address], [place], [place], [id number], [place] tel:[phone] [facility] [place] No Information 8-200 9 Arshad OD Jacob. [address] [facility] [place] , [address], [place], [address], [place]. tel:[phone] Referring Provider: Jareth Garcia MD [place], [address] [place] [address], [address]. tel:[phone] Family History Family Member Type Diagnosis Age At Onset No Information Payers Payer name Insurance type Covered constitution party ID Authoralbina tijairon(s) [facility] Commercial CI [id number] Social History Type Description Quantity Date Captured [...]
--- OUTSIDE RECORDS SUMMARY | 2024-08-29 12:47 | XMS_ITS ---
Author Name Auto Generated, Auto Generated Organization [facility] [employer] [facility] Address [address] [place] [address] Phone [phone] Care Team Providers Care Material Preparation Worker Name Role Phone Mikel Bravo Unavailable Nunez Rima Unavailable [phone] Pushpa Alvarez Unavailable SriEugeniaCherrie M Unavailable [phone] Functional Status No Results Mental Status No [...] MI N 1 Time Daily contsipation ThuMar 09:00:2017Mar [...]
--- OUTSIDE RECORDS SUMMARY | 2024-08-29 12:47 | XMS_ITS ---
Author Name Auto Generated, Auto Generated Organization [facility] [address] Address [address] [place] [address] Phone [phone] Care Team Providers Care Cryptographic Center Specialist Name Role Phone Mikel Bravo Unavailable Rima Nunez Unavailable [phone] Pushpa Alvarez Unavailable Cherrie Fierro Unavailable Functional Status Mental Status Allergies and Intolerances Medications Problems Reason for Referral Past Medical History
--- NOTE | 2024-08-29 12:48 | ECHO_ITS ---
Patient Info Name: Odette Olson Age: 68 years : 1955 Gender: Female Ht: 60 in Wt: 206 lbs BSA: 2.04 m2 HR: 88 bpm BP: 154 / 95 mmHg Heart Rhythm: Sinus Rhythm Technical Quality: Fair Exam Date: 08/29/2024 12:55 PM Patient Status: O Admit Date: 08/29/2024 Exam Type: CA echo dop color flow w con Complete two-dimensional, color flow and Doppler transthoracic echocardiogram is performed with contrast to opacify the left ventricle and to improve the deliniation of the left ventricle endocardial borders. Certified Adapted Physical Educator: Rebeca Glover Attending Provider: Roberta Cole Contrast/Agitated Saline Contrast/Ag. Saline: Definity Amount: 2.00 ml Existing IV Access: No New IV Access: Left Site Condition: IV removed Summary 1. Left ventricular chamber dimension is normal. 2. Left ventricular systolic function is normal, estimated at 65-70. 3. The left ventricular diastolic function is grade I diastolic dysfunction. 4. Definity contrast administered improved wall motion interpretation. 5. E/e' 10 is mildly elevated. 6. There is trace tricuspid valve regurgitation. 7. Mild pulmonary hypertension, estimated pulmonary arterial systolic pressure is 46 mmHg. Left Ventricle E/e' 10 is mildly elevated. Left ventricular chamber dimension is normal. Left ventricular systolic function is normal, estimated at 65-70. The left ventricular diastolic function is grade I diastolic dysfunction. Definity contrast administered improved wall motion interpretation. Right Ventricle Right ventricular chamber dimension is normal. Right ventricular systolic function is normal and with normal TAPSE 1.8 cm. Left Atria Left atrial chamber dimension is normal. Right Atria Right atrial chamber dimension is normal. Aortic Valve The aortic valve is trileaflet. There is no aortic valve stenosis. There is no aortic valve regurgitation. Pulmonic Valve There is no pulmonic regurgitation. Mitral Valve There is no mitral valve stenosis. There is no mitral valve regurgitation. Tricuspid Valve There is trace tricuspid valve regurgitation. Mild pulmonary hypertension, estimated pulmonary arterial systolic pressure is 46 mmHg. Pericardium/Pleural There is no pericardial effusion. Inferior Vena Cava Normal inferior vena cava with >50% collapse upon inspiration consistent with normal right atrial pressure, 5 mmHg. Aorta The aortic root size at the sinus of Valsalva is normal. Left Ventricular Outflow Tract Name Value Normal LVOT 2D LVOT Diameter 1.9 cm LVOT Doppler LVOT Peak Velocity 116 cm/s LVOT Peak Gradient 5 mmHg LVOT Mean Gradient 2 mmHg LVOT VTI 23 cm LVOT VTI/AV VTI Ratio 0.7 LVOT Stroke Volume 61 ml LVOT CO 5.0 l/min LVOT CI 2.5 l/min/m2 Pulmonic Valve Name Value Normal RVOT Doppler RVOT Peak Velocity 96 cm/s RVOT Peak Gradient 4 mmHg PV Doppler PV Peak Velocity 117 cm/s PV Peak Gradient 5 mmHg Mitral Valve Name Value Normal MV Diastolic Function MV E Peak Velocity 83 cm/s MV A Peak Velocity 98 cm/s MV E/A 0.8 MV Decel Time (PW) 128 ms MV Annular TDI MV E/e' (Septal) 13.1 MV E/e' (Lateral) 8.2 MV E/e' (Average) 10.7 Tricuspid Valve Name Value Normal TV Regurgitation Doppler TR Peak Velocity 318 cm/s TR Peak Gradient 41 mmHg Estimated PAP/RSVP RA Pressure 5 mmHg <=5 PA Systolic Pressure 46 mmHg <36 RV Systolic Pressure 46 mmHg <36 TV Annular TDI TV Lateral Luann s' Velocity 12.5 cm/s >=9.5 Aorta Name Value Normal Ascending Aorta Ao Root Diameter (MM) 2.8 cm Ao Root Diam Index (MM) 1.4 cm/m2 Aortic Valve Name Value Normal AV Doppler AV Peak Velocity 155 cm/s AV Peak Gradient 10 mmHg AV Mean Gradient 5 mmHg AV VTI 31 cm AV Area (Cont Eq VTI) 2.0 cm2 >=3.0 AV Area (Cont Eq Mehran) 2.0 cm2 AV DI (Mehran) 0.75 AV Regurgitation 2D LVOT Area 2.7 cm2 Ventricles Name Value Normal LV Dimensions 2D/MM IVS Diastolic Thickness (2D) 0.8 cm 0.6-1.0 LVID Diastole (2D) 4.4 cm 3.8-5.2 LVIW Diastolic Thickness (2D) 0.8 cm 0.6-0.9 LVID Systole (2D) 2.4 cm 2.2-3.5 LVOT Diameter 1.9 cm LV Mass (2D Cubed) 117.29 g 67.00-162.00 LV Mass Index (2D Cubed) 57 g/m2 43-95 Relative Wall Thickness (2D) 0.37 <=0.42 LV Fractional Shortening/Ejection Fraction 2D/MM LV Fractional Shortening (2D) 45 % 27-45 LV EF (2D Teichholz) 77 % LV Diastolic Volume (4C MOD) 43 ml LV EF (4C MOD) 72 % LV Diastolic Volume (2C MOD) 39 ml LV EF (2C MOD) 63 % LV Diastolic Volume (BP MOD) 41 ml 46-106 LV Diastolic Volume Index (BP MOD) 20 ml/m2 29-61 LV Systolic Volume (BP MOD) 13 ml 14-42 LV Systolic Volume Index (BP MOD) 6 ml/m2 8-24 LV EF (BP MOD) 68 % 54-74 LV Diastolic Length (4C) 6.4 cm LV Systolic Length (4C) 4.9 cm LV Stroke Volume (4C MOD) 31 ml Atria Name Value Normal LA Dimensions LA Dimension (MM) 3.4 cm 2.7-3.8 LA Volume (4C A-L) 27 ml LA Volume (BP A-L) 35 ml RA Dimensions RA Systolic Major [place] Length (4C) 4.6 cm 2.2-2.8 RA Area (4C) 7.5 cm2 <=18.0 Report Signatures
[2024-08-29] MEDS: PERFLUTREN LIPID MICROSPHERES 1.5 ML VIAL DILUTED TO 10 ML TOTAL VOLUME IV PUSH (13:30)
--- NOTE | 2024-08-29 16:05 | IVDEFINITY ---
Prior to administration of IV Definity the patient was educated on the risks and benefits of the imaging enhancing agent including potential adverse side effects. The patient verbalized understanding. Allergies were verified. No exclusion criteria were identified and at least one of the following inclusion criteria were met: 1) physician request, 2) patient technically difficult to image (per the [place] [employer] Echocardi[employer] guidelines of two or more segments not discernable within the apical view), or 3) questionable left ventricular function. ?
== END 2024-08-29 12:39 | disposition home or self-care (01) ==
PROVIDERS: PCP Family Medicine; Visit Provider Nurse Practitioner
DX: I50.9 Heart failure, unspecified (principal); I08.3 Combined rheumatic disorders of mitral, aortic and tricuspid valves
CPT/HCPCS: C8929; Q9957

== ENCOUNTER 2024-10-19 10:56 | Outpatient (CLI) | payer MEDICARE, SELFPAY ==
--- NOTE | ~2024-10-19 | DEXA_ITS ---
Bone Density Report Name: BUDDY BERNAL Age: 69 Sex: Female Ethnicity: White Date of : 1955 Indication: osteopenia; height loss; inflammatory bowel disease; Referring Provider: Roberta Cole Study: Bone densitometry was performed. Exam Date: October 19, 2024 Accession number: [id number] Bone Density: Region BMD T-score Z-score Classification AP Spine(L1-L4) 0.935 -1.0 1.0 Normal Femoral Neck (Left) 0.501 -3.1 -1.4 Osteoporosis Total Hip (Left) 0.676 -2.2 -0.7 Osteopenia Femoral Neck (Right) 0.605 -2.2 -0.5 Osteopenia Total Hip (Right) 0.796 -1.2 0.3 Osteopenia Total Hip Mean 0.736 -1.7 -0.2 Osteopenia World Health Organization criteria for BMD impression classify patients as: Normal (T-score at or above -1.0), Osteopenia (T-score between -1.0 and -2.5), or Osteoporosis (T-score at or below -2.5). 10-year Fracture Risk: FRAX not reported because: Some T-score for Spine Total or Hip Total or Femoral Neck at or below -2.5 Previous Exams: -- Region Exam Age BMD T-score BMD Change BMD Change Date g/cm2 vs Baseline vs Previous -- AP Spine (L1-L4) 10/19/2024 69 0.935 -1.0 -4.4%# 5.0%* 06/24/2018 62 0.891 -1.4 -8.9%# -11.1%# 07/21/2011 55 1.002 -0.4 2.5%* 2.5%* 01/19/2006 50 0.977 -0.6 Total Hip(Left) 10/19/2024 69 0.676 -2.2 -29.5%# -3.1% 06/24/2018 62 0.697 -2.0 -27.2%# -27.2%# 07/21/2011 55 0.958 0.1 Total Hip(Right) 10/19/2024 69 0.796 -1.2 -21.1%# -5.3%* 06/24/2018 62 0.841 -0.8 -16.8%# -16.8%# 07/21/2011 55 1.010 0.6 -- *Denotes significance at 95% confidence level, LSC for AP Spine = 0.022 g/cm2, LSC for Total Hip = 0.027 g/cm2 # Denotes dissimilar scan types or analysis methods Clinical Information Provided by Patient: Has used the following medications: Vitamin D, Calcium Has the following medical conditions: Inflammatory bowel diseases Patient maximum height was 64 Menopause Age: 46 No regular weight bearing exercise Drinks caffeinated beverages Onset of menses at age 10 Number of children 1 Impression: The patient has osteoporosis, based on the Left Femoral Neck T-score. The BMD for the Total Hip(Right) decreased, changing by -5.3% since the last DXA exam. Discussion: INCREASED RISK OF FRACTURE. BONE DENSITY IS UNDESIRABLY LOW AT ONE OR MORE SKELETAL SITES, CONSISTENT WITH POSTMENOPAUSAL OSTEOPOROSIS. This patient's lowest T-score meets the World Health Organization's (WHO) criteria for osteoporosis at one or more sites (T-score -2.5 or below). In untreated patients, the risk of osteoporotic fracture increases approximately two-fold for each 1.0 SD decrease in T-score. Low bone density is not the only risk factor for fracture; also consider factors such as patient's age, frailty or poor health, risk of falling, risk of injury, previous osteoporotic fracture, family history of osteoporosis, cigarette smoking, low body weight, etc. Not everyone with low bone mineral density has osteoporosis; osteomalacia and other metabolic bone disorders should also be considered. Patients who have osteoporosis should be evaluated for specific diseases and conditions (secondary causes) that may cause or contribute to bone loss. The [place] Association of Clinical Endocrinologists (AACE) and National Osteoporosis Foundation (NOF) recommend pharmacologic intervention for all postmenopausal women whose T-score is in this range. The patient should follow a healthful lifestyle (good nutrition with adequate calcium and vitamin D, and appropriate weight-bearing exercise). Follow-Up: Consider a repeat BMD and Vertebral Fracture Assessment (VFA) exam in 2 years or sooner if medically necessary, to reassess this patient's status. Reported by: DEJAH on 10/19/2024 11:23:00 AM. Reviewed, dictated and finalized at location A.
== END 2024-10-19 10:57 | disposition home or self-care (01) ==
LOC: MICIMG 10:57
PROVIDERS: PCP Family Medicine; Visit Provider Nurse Practitioner
DX: M85.88 Other specified disorders of bone density and structure, other site (principal); M81.0 Age-related osteoporosis without current pathological fracture; M85.852 Other specified disorders of bone density and structure, left thigh; M85.851 Other specified disorders of bone density and structure, right thigh
CPT/HCPCS: 77080

== ENCOUNTER 2024-11-23 10:12 | Outpatient (CLI) | payer MEDICARE, SELFPAY ==
--- OUTSIDE RECORDS SUMMARY | 2024-11-23 10:34 | XMS_ITS ---
Author Name Auto Generated, Auto Generated Organization [employer] ice Address [address] [place] [address] Phone [phone] Care Team Providers Care Edge Trimmer Mechanic Name Role Phone Mikel Bravo Unavailable Nunez Rima Unavailable [phone] Pushpa Alvarez Unavailable SriEugeniaCherrie M Unavailable [phone] Functional Status No Results Mental Status No [...] 8.6 mg tablet 1 tab TABLET Oral AK N 1 Time Daily contsipation ThuMar 09:00:2017Mar [...] 2017 * End Date: * Text: * assistant terminal manager (current) use of aspirin* Code: * Start [...]
--- OUTSIDE RECORDS SUMMARY | 2024-11-23 10:35 | XMS_ITS ---
Author Organization [facility] Care Team Providers Care Port Steward Name Role Phone Angel Buckner Unavailable Unavailable Allergies and adverse reactions Code CodeSystem Substance Reaction Severity StartDate Concern Status salmeterol Unknown 03/11/2019 active pimecrolimus Unknown 03/11/2019 active Fluticasone Unknown 03/11/2019 active DIAZEPAM Unknown 03/11/2019 active Adhesive tape Unknown 03/11/2019 active Care Team Name Role Address Phone Organization Dates Angel Buckner PCP [address] [place], [place], [facility], [place] States (Office): : [facility] 03/11/2019 - 03/24/2019 Goals Section Goals Description Status Target Date Decrease risk of [...] CodeSystem Concern Status 1 ANEMIA, UNSPECIFIED 03/14/[address] active 2 MAJOR DEPRESSIVE DISORDER, RECURRENT, UNSPECIFIED 03/14/[address] active 3 ACUTE EMBOLISM AND THROMBOSIS OF UNSPECIFIED DEEP VEINS OF UNSPECIFIED LOWER EXTREMITY 03/11/[address] active 4 CHRONIC DUODENAL ULCER WITHOUT HEMORRHAGE OR PERFORATION 03/11/[address] active 5 CHRONIC RESPIRATORY FAILURE WITH HYPERCAPNIA 03/11/[address] active 6 ESSENTIAL (PRIMARY) HYPERTENSION 03/11/[address] active 7 GASTRO-ESOPHAGEAL REFLUX DISEASE WITHOUT ESOPHAGITIS 03/11/[address] active 8 HEART FAILURE, UNSPECIFIED 03/11/[address] active 9 IRRITABLE BOWEL SYNDROME, UNSPECIFIED 03/11/[address] active 10 MIXED HYPERLIPIDEMIA 03/11/[address] active 11 NONRHEUMATIC MITRAL (VALVE) PROLAPSE 03/11/[address] active 12 OTHER ABNORMALITIES OF BREATHING 03/11/[address] active 13 SLEEP APNEA, UNSPECIFIED 03/11/[address] active 14 SPINAL STENOSIS, LUMBAR REGION WITHOUT NEUROGENIC CLAUDICATION 03/11/[address] active 15 TYPE 2 DIABETES MELLITUS WITH DIABETIC NEUROPATHY, UNSPECIFIED 03/11/[address] active 16 TYPE 2 DIABETES MELLITUS WITHOUT COMPLICATIONS 03/11/[address] active 17 UNSPECIFIED OSTEOARTHRITIS, UNSPECIFIED SITE 03/11/[address] active Reason for Referral No Reasons for Referral Entered Social History Social History Observation Description Start Date End Date Code Code System Current Smoking Status Tobacco smoking consumption unknown 565924129 SNOMED CT Sex Assigned At Female 1955 06488-7 [facility] Gender Identity Vital Signs Code Code System Vitals Name Values and Units Timing Information 9279-1 [facility] Respiratory Rate Value=22.0 Units=/m in 03/24/2019 8310-5 [facility] Body Temperature Value=98.2 Units= F 03/24/2019 8867-4 [facility] Heart rate Value=55.0 Units=/min 8462-4 [facility] Blood Pressure-Diastolic Value=71 Un its=mmHg 03/24/2019 8480-6 [facility] Blood Pressure-Systolic Cmdxv=447 Un its=mmHg 03/24/2019 01936-1 [facility] O2 % BldC Oximetry Value=99.0 Units= % 03/24/2019 43430-3 LOINC Weight Hpnaa=706.8 Units=Lbs 83923-3 [facility] Pain Level Value=0.0 03/23/2019 8302-2 LOINC Height Value=60.0 Units=Inches 03/11/2019
[2024-11-23 14:17] LABS: Hematocrit 42.7 % (37.0-47.0); Hemoglobin 12.8 g/dL (12.0-15.0); Mean Corpuscular HGB Conc 30.0 g/dl (32-36); Mean Corpuscular Hemoglobin 26.1 pg (26-34); Mean Corpuscular Volume 87.0 fl (80-100); Platelet Count Result 255 k/mm3 (150-375); Red Blood Count 4.91 M/mm3 (4.2-5.4); White Blood Count 6.7 K/mm3 (4.5-10.0)
[2024-11-23 15:50] LABS: Alanine Aminotransferase 13 U/L (6-35); Albumin Level 4.2 g/dL (3.5-5.1); Alkaline Phosphatase 130 U/L (38-126); Anion Gap 6 mmol/L (4-12); Aspartate Amino Transferase 25 U/L (14-36); Bilirubin,Total 0.3 mg/dL (0.2-1.3); Blood Urea Nitrogen 22 mg/dL (7-17); Calcium 9.7 mg/dL (8.4-10.2); Carbon Dioxide 38 mmol/L (22-30); Chloride 92 mmol/L (98-107); Cholesterol 140 mg/dL (0-200); Estimated Glomerular Filt Rate 51; Glucose 107 mg/dL (65-110); HDL Direct 45 mg/dL; Potassium 4.9 mmol/L (3.4-5.0); Sodium 136 mmol/L (137-145); Total Protein 7.2 g/dL (6.3-8.2); Triglycerides 134 mg/dL (<150)
[2024-11-23 16:52] LABS: Hemoglobin A1C 6.9 % (<5.7)
== END 2024-11-23 10:13 | disposition home or self-care (01) ==
LOC: ANHGOSHLAB 10:13
PROVIDERS: PCP Family Medicine; Visit Provider Nurse Practitioner
DX: D64.9 Anemia, unspecified (principal); I10 Essential (primary) hypertension; E78.2 Mixed hyperlipidemia; E11.9 Type 2 diabetes mellitus without complications
CPT/HCPCS: 36415; 80053; 80061; 83036; 85027

== ENCOUNTER 2024-12-01 12:44 | Outpatient (NON) | payer MEDICARE, SELFPAY ==
[2024-12-01 19:34] LABS: MALB Creatinine Ratio 29.3 mg/g (0-30)
== END 2024-12-01 12:45 | disposition home or self-care (01) ==
LOC: ANHGOSHLAB 12:45
PROVIDERS: PCP Family Medicine; Visit Provider Nurse Practitioner
DX: E11.9 Type 2 diabetes mellitus without complications (principal)
CPT/HCPCS: 82043

== ENCOUNTER 2025-01-03 14:55 | Emergency (ER) | payer MEDICARE, SELFPAY ==
--- OUTSIDE RECORDS SUMMARY | 2008-06-14 08:45 | XMS_ITS | Continuity of Care Document ---
Author Organization [facility] Address [address] [place] [address] utive [facility] [address] [place] [address] Phone Care Team Providers Care Neighborhood Aide Name Role Phone Arshad OD, Jacob Unavailable Unavailable Procedures Procedure Date Eye Exam, New Patient Advance Directives Directive Yes / No Effective Date File Name No Information Encounters Encounter Description Practice Location Reason(s) For Visit Diagnoses Date Provider Providers Copied on Encounter [facility], [id number] [place] [address] [address], [place], [place], [id number], [place] tel:[phone] [facility] [place] No Information 8-200 9 Arshad OD Jacob. [address] [facility] [address] , [address], [place], [address], [place]. tel:[phone] Referring Provider: Jareth Garcia MD [place], [address] [place] [address], [address]. tel:[phone] Family History Family Member Type Diagnosis Age At Onset No Information Payers Payer name Insurance type Covered alliance party ID Authoriza tijairon(s) [facility] Commercial CI [id number] Social History Type Description Quantity Date Captured Comments Sex Female Smoking Status No Information Chief Complaint And Reason For Visit No Information Reason For Referral Reason For Referral No Information History Of Present Illness Encounter Date Complaint History Of Prese nt Illness No Information Functional Status Date Functional Assessmen t No Information Instructions Date Instruction Additional Infor mation No Information Assessments Type Assessment Date No Information Patient Care Teams Name Effective Dates (start - stop) Status Members No Information
--- OUTSIDE RECORDS SUMMARY | 2008-06-14 08:45 | XMS_ITS | Continuity of Care Document ---
Author Organization [facility] Address [address] [place] [address] utive [facility] [address] [place] [address] Phone Care Team Providers Care Recovery Engineer Name Role Phone Arshad OD, Jacob Unavailable Unavailable Procedures Procedure Date Eye Exam, New Patient Advance Directives Directive Yes / No Effective Date File Name No Information Encounters Encounter Description Practice Location Reason(s) For Visit Diagnoses Date Provider Providers Copied on Encounter [facility], [id number] [place] [address] [address], [place], [place], [id number], [place] tel:[phone] [facility] [place] No Information 8-200 9 Arshad OD Jacob. [address] [facility] [place] , [address], [place], [address], [place]. tel:[phone] Referring Provider: Jareth Garcia MD [place], [address] [place] [address], [address]. tel:[phone] Family History Family Member Type Diagnosis Age At Onset No Information Payers Payer name Insurance type Covered green party ID Authoriza tijairon(s) [facility] Commercial CI [id number] Social History Type Description Quantity Date Captured [...]
[2025-01-03] VITALS (7 sets, daily range): BP systolic 105–161; BP diastolic 67–93; PULSE 72–95; RESP 14–25; TEMP 36.7; O2SAT 99–100
--- NOTE | ~2025-01-03 | XR_ITS ---
EXAMINATION: XR chest 1V portable 01/03/2025 15:59 INDICATION: BID. TECHNIQUE:A single portable AP upright frontal image of the chest was obtained. COMPARISON: 01/22/2024 FINDINGS: Moderate elevation of the right hemidiaphragm, unchanged. Heart is enlarged, unchanged. No pneumothorax. No pleural effusion. No free air under the diaphragm. Small opacities in the lower lungs. Air is noted in large bowel in the right upper abdomen. IMPRESSION: 1: Small opacities in the mid and lower lungs which represents atelectasis/scarring or infiltrates. 2. Moderate elevation of the right hemidiaphragm. If symptoms persist or worsen, consider a short-term follow-up study or additional imaging for further assessment. Reviewed, dictated and finalized at location Q. IMPRESSION: 1: Small opacities in the mid and lower lungs which represents atelectasis/sca rring or infiltrates. 2. Moderate elevation of the right hemidiaphragm. If symptoms persist or worsen, consider a short-term follow-up study or additio nal imaging for further assessment.
--- NOTE | ~2025-01-03 | XR_ITS ---
EXAMINATION: XR shoulder RT min 2V, 01/03/2025 16:34 CDT HISTORY: atraumatic shoulder pain COMPARISON: No comparisons available. Findings: No acute fracture or malalignment. Severe degenerative changes Soft tissues unremarkable. Impression: No acute fracture or malalignment. Reviewed, dictated and finalized at location P. Impression: No acute fracture or malalignment.
--- NOTE | 2025-01-03 15:12 | ECG_ITS ---
Test Date: 2025-01-03 15:05:54 Measurements Intervals [place] Rate: 95 P: 56 IN: 154 QRS: 77 QRSD: 93 T: 106 QT: 344 QTc: 433 Interpretive Statements SINUS RHYTHM LOW QRS VOLTAGE IN PRECORDIAL LEADS CONSIDER INFERIOR INFARCT, AGE INDETERMINATE MODERATE T-WAVE ABNORMALITY, CONSIDER LATERAL ISCHEMIA BASELINE ARTIFACT- I, II, III, AVR, AVL, AVF, V1-V6 ABNORMAL ECG Compared to ECG 09/30/2023 15:35:38 Possible ischemia now present Electronically Signed On 01-03-2025 16:10:45 CDT by Damir Ibarra D.O.
[2025-01-03] MEDS: IPRATROPIUM BR 0.02% INH SOLN 0.5 MG/2.5 ML VIAL 1 MG INHALATION (15:20)
[2025-01-03] MEDS: ALBUTEROL SULFATE NEB 2.5 MG/3 ML INH 10 MG INHALATION (15:26)
--- NOTE | 2025-01-03 15:26 | ED_ITS ---
HPI - Dizziness General Chief Complaint: Dizziness Stated Complaint: dizziness Time Seen by Provider: 01/03/25 15:01 History of Present Illness HPI Narrative: Patient with history of CHF, COPD, vertigo, presents after having an episode of vertigo, and then earlier today she started noticing a sensation of shortness of breath, with pain to her right shoulder, and felt like a tight band around her upper abdomen. She did also get nauseous. Overall her symptoms have largely subsided since arriving to the ER here. She does has a slight nausea, shortness of breath, and vertigo Related Data Home Medications ?Medication ?Instructions ?Recorded ?Confirmed ?Last Taken ?Type cyanocobalamin (vitamin B-12) 2,500 mcg PO DAILY 05/1412/19/24 07/03/22 History 2,500 mcg sublingual tablet (Vitamin B-12) Allergies Allergy/AdvReac Type Severity Reaction Status Date / Time fluticasone (From Advair Allergy Intermediate Other Verified 01/03/25 15:19 Diskus) salmeterol Allergy Intermediate Other Verified 01/03/25 15:19 adhesive tape Allergy Mild RASH Verified 01/03/25 15:19 pimecrolimus Allergy Unknown Skin Verified 01/03/25 15:19 Reaction Review of Systems 2 Review of Systems: All systems reviewed & are unremarkable except as noted in HPI and below PMFSH Past Medical History Medical History Chronic obstructive pulmonary disease, unspecified Pain, abdominal, LLQ Mass of right ovary Irritable bowel syndrome with constipation Bloating Constipation Abdominal pain Chronic respiratory failure with hypoxia and hypercapnia Tobacco abuse Pulmonary hypertension Suggested by CT findings October 2018 Hepatic steatosis Benign positional vertigo History of esophageal spasm Cataracts, bilateral Maturing Hiatal hernia Type 2 diabetes mellitus Chronic respiratory failure with hypoxia, on home O2 therapy Due to right hemidiaphragm paralysis for 11 years, obstructive sleep apnea, PFTs 2012 demonstrating moderate restrictive and severe obstructive disease without bronchodilator response History of paroxysmal supraventricular tachycardia IBS (irritable bowel syndrome) GERD (gastroesophageal reflux disease) Ovarian cyst UTI (urinary tract infection) Arthritis Scoliosis Spinal stenosis Rectal polyp Duodenal ulcer Pneumonia DVT (deep venous thrombosis) Bilateral lower extremity November 2018 Hypertension Mitral valve prolapse CHF (congestive heart failure) Diastolic with EF of 55% on last echocardiogram August 2016 Angina at rest Peripheral neuropathy Periodontal disease Sinus problem Pulmonary emboli Extensive acute pulmonary emboli November 2018 Surgical History Surgical History Branchial cleft cyst Excision of her right-sided brachial cleft cyst 1972 History of right breast biopsy With benign pathology History of colonoscopy with polypectomy H/O dilation and curettage History of bilateral carpal tunnel release 2005 History of total right knee replacement 2009 H/O: section 1976 Family History Family History Mother Hypertension Coronary artery disease COPD (chronic obstructive pulmonary disease) Father Hypertension Coronary artery disease Sibling Hypertension Social History Social History Social History: Patient is . She is currently residing at a care home facility for rehabilitation. The patient has a 30 pack per year smoking history and quit smoking in 2003. She does not drink alcohol or use illicit substances. Primary care physician: Dr. Christian Garcia Code status: Full code Smoking packs per day: 1 Smoking cigarettes per day: 20.0 Years smoked: 30 Smoking pack-years: 30.00 Smoking status: Former smoker Tobacco type: cigarettes Alcohol intake: current Alcohol use details: rarely Substance use: never Substance use type: does not use Do You Feel Safe in your Home?: Yes Lack of Transportation: No Lack of Food: Never True Current Housing: Decline to Answer Concerned About Future Housing: Decline to Answer Difficulty Paying Gas/Electric Bills: Decline to Answer Difficulty Paying for Meds: Decline to Answer Currently Unemployed: Decline to Answer Education: Trade/Vocational Certificate Difficulty w/ Childcare or Family Care: Decline to Answer Living arrangements: alone Occupation/Education: retired Gender identity (if verbalized by the patient): Female Spiritual care concerns: No Agree to blood products: No Exam 2 Narrative: EXAMINATION OF ORGAN SYSTEMS/BODY AREAS: Constitutional: Vital signs per nursing GENERAL:[No acute distress, non-toxic appearing.] HEAD: Normal with no signs of head trauma. EYES: EOMI, conjunctiva normal, no nystagmus ENT: Hearing grossly intact LUNGS: Nonlabored breathing. Diminished breath sounds bilaterally HEART: [Regular rate and rhythm] ABD: [Soft], [nontender to palpation] EXT: Normal range of motion SKIN: [No rashes or lesions.] NEURO: [Alert and oriented x 3. No gross focal sensory or strength deficits.] PSYCH: Normal affect Course Vital Signs Vital signs: Vital Signs Temperature 98.0 F 01/03/25 15:05 Pulse Rate 92 01/03/25 15:05 Respiratory Rate 14 01/03/25 15:05 Blood Pressure 161/93 H 01/03/25 15:05 Pulse Oximetry 99 01/03/25 15:05 Oxygen Delivery Nasal Cannula 01/03/25 15:05 Oxygen Flow Rate 2 01/03/25 15:05 Temperature 98.0 F 01/03/25 15:05 Pulse Rate 72 01/03/25 18:29 Respiratory Rate 16 01/03/25 18:29 Blood Pressure 105/69 01/03/25 18:29 Pulse Oximetry 100 01/03/25 18:29 Oxygen Delivery Nasal Cannula 01/03/25 15:05 Oxygen Flow Rate 2 01/03/25 15:05 MDM - Dizziness MDM Narrative Medical decision making narrative: ED COURSE AND MEDICAL DECISION MAKIN-year-old female presenting with multiple issues have been ongoing for last few days, including vertigo, nausea, shortness of breath, right shoulder pain, tight band around her upper abdomen. On exam she has did diminished breath sounds, abdomen soft nontender, right shoulder without tenderness to palpation. Normal radial DP pulses bilaterally. I did start cardiac workup, and symptomatic management with breathing treatments, meclizine, Zofran. EKG done in triage negative for acute ischemic changes. Cardiac workup is initiated. EKG: Performed in triage and interpreted by me. Normal sinus rhythm. Rate 95. Normal axis. MO normal. QRS duration normal. QTc normal. No pathologic Q waves. No ST segment elevation or depression to suggest acute ischemia. T-wave inversions laterally HEART score is 3 with 2 negative troponin making ACS unlikely. Wells low risk with negative PERC making PE unlikely. Presentation not consistent with dissection or aneurysm without radiation of pain or pulse deficits. CXR negative for mediastinal widening. No abdominal pain or signs of sepsis that would be concerning for esophageal perforation or mediastinitis. No cardiomegaly or JVD to suggest pericardial effusion/tamponade. HEART Score: 3. (Risk of major adverse cardiac events over 6 weeks: Score of 0- 3 is low risk <2% ; Score of 4-6 is moderate risk ~12-15%; Score of 7-12 is high risk ~50%). Patient started having right shoulder pain again, repeat EKG obtained is still not showing any changes, I did give her some pain medicine and small dose of Valium, and on re-evaluation, her symptoms have completely resolved. She no longer has shoulder pain, she has no shortness of breath after the breathing treatments, her vertigo has resolved and she is no longer nauseous. I did offer admission, but she feels comfortable going home at this time. On repeat evaluation just prior to discharge, the patient is no acute distress. I had a long discussion with the patient and with shared decision making, [he] is comfortable with outpatient management. [He] was given clear return instructions by myself in person as well as on discharge paperwork. Lab Data 01/03/25 15:28 01/03/25 15:28 Labs: Lab Results 01/03/25 01/03/25 01/03/25 Range/Units 15:28 15:28 18:18 WBC 6.8 (4.5-10.0) K/mm3 RBC 5.20 (4.2-5.4) M/mm3 Hgb 13.8 (12.0-15.0) g/dL Hct 44.8 (37.0-47.0) % MCV 86.2 (80-100) fl MCH 26.5 (26-34) pg MCHC 30.8 L (32-36) g/dl RDW 15.1 H (11.5-14.5) % Plt Count 217 (150-375) k/mm3 MPV 9.6 (7.4-10.4) fl Immature Gran % (Auto) 0.3 (0-0.5) % Neut % (Auto) 72.6 (45.5-73.1) % Lymph % (Auto) 15.9 L (18.3-44.2) % [place] % (Auto) 7.5 (2.6-8.5) % Eos % (Auto) 3.1 (0-4.4) % Baso % (Auto) 0.6 (0.2-1.2) % Lymph # (Auto) 1.08 (0.9-3.2) K/mm3 [place] # (Auto) 0.5 (0.1-0.6) K/mm3 Eos # (Auto) 0.2 (0-0.3) K/mm3 Baso # (Auto) 0.0 (0.0-0.1) K/mm3 Abs Immat Gran (auto) 0.02 (0.00-0.031) K/mm3 Absolute Neuts (auto) 4.9 (1.3-6.7) K/mm3 Absolute Nucleated RBC 0.000 (0.0-0.012) K/mm3 Nucleated RBC % 0.0 (0.0-0.2) % Sodium 137 (137-145) mmol/L Potassium 4.1 (3.4-5.0) mmol/L Chloride 92 L (98-107) mmol/L Carbon Dioxide 39 H (22-30) mmol/L Anion Gap 6 (4-12) mmol/L BUN 22 H (7-17) mg/dL Creatinine 0.89 (0.7-1.0) mg/dL Estim Creat Clear Calc 53 ml/min Estimated GFR > 60 (59 - ) Glucose 164 H (65-110) mg/dL Calcium 9.5 (8.4-10.2) mg/dL Total Bilirubin 0.4 (0.2-1.3) mg/dL AST 26 (14-36) U/L ALT 15 (6-35) U/L Alkaline Phosphatase 98 (38-126) U/L Troponin I < 0.012 < 0.012 (0.000-0.034) ng/mL NT-Pro-B Natriuret Pep 562 H Cancelled (19.9-100) pg/mL Total Protein 7.0 (6.3-8.2) g/dL Albumin 4.1 (3.5-5.1) g/dL Lipase 73 (23-300) U/L Discharge Plan Discharge Clinical Impression: Shortness of breath, Right shoulder pain, Vertigo Patient Disposition: Home Condition: Stable Instructions: Dizziness (ED), Shoulder Pain (ED), Shortness of Breath (ED) Additional Instructions: Please follow up with your doctor in the next few days. You can take the medications as prescribed. If your symptoms return, especially if you start having any chest pain or shortness of breath, headache or dizziness or any difficulty speaking or walking or anything else concerning, please come back to the ER immediately. Patient Language: Taiwanese Prescriptions: No Action clobetasol 0.05 % ointment 1 applic topical QHS Qty: 30 0RF Rx Instructions: Apply vaginally QHS metformin 500 mg tablet 500 mg PO DAILY Qty: 90 1RF Rx Instructions: Take with your largest meal potassium chloride 20 mEq tablet,ER particles/crystals See Rx Instructions .ROUTE .COMPLEX Qty: 180 1RF Dose Instruction: Take 1 tablet by mouth twice daily Rx Instructions: Take 1 tablet by mouth twice daily Linzess 290 mcg capsule 290 mcg PO DAILY Qty: 90 3RF cyanocobalamin (vitamin B-12) [Vitamin B-12] 2,500 mcg tablet, sublingual 2,500 mcg PO DAILY azelastine 137 mcg (0.1 %) spray,non-aerosol 137 mcg intranasal . q.h.s. Qty: 30 3RF Rx Instructions: administer into each nostril 1 or 2 sprays q.h.s. p.r.n. rhinorrhea and sinus congestion codeine-guaifenesin 10-100 mg/5 mL liquid 5 ml PO Q6H PRN (Reason: cough) Qty: 120 0RF doxycycline monohydrate 100 mg capsule 100 mg PO BID Qty: 20 0RF triamcinolone acetonide 0.1 % ointment 1 applic topical BID PRN (Reason: Rash) Qty: 80 3RF albuterol sulfate 2.5 mg /3 mL (0.083 %) solution for nebulization 2.5 mg inhalation DAILY PRN (Reason: shortness of breath or wheezing) 90 Days Qty: 270 5RF Rx Instructions: Inhale 3mL by nebulizer once daily as needed Eliquis 5 mg tablet See Rx Instructions .ROUTE .COMPLEX Qty: 60 5RF Dose Instruction: Take 1 tablet by mouth twice daily Rx Instructions: Take 1 tablet by mouth twice daily metoprolol tartrate 100 mg tablet See Rx Instructions .ROUTE .COMPLEX Qty: 180 1RF Dose Instruction: TAKE 1 TABLET BY MOUTH EVERY 12 HOURS Rx Instructions: TAKE 1 TABLET BY MOUTH EVERY 12 HOURS- pantoprazole 40 mg tablet,delayed release (DR/EC) See Rx Instructions .ROUTE .COMPLEX Qty: 90 1RF Dose Instruction: TAKE 1 TABLET BY MOUTH ONCE DAILY IN THE MORNING Rx Instructions: TAKE 1 TABLET BY MOUTH ONCE DAILY IN THE MORNING alendronate 70 mg tablet 70 mg PO WEEKLY Qty: 12 1RF arformoterol 15 mcg/2 mL solution for nebulization 2 ml inhalation BID 90 Days Qty: 360 3RF theophylline 400 mg tablet extended release 24 hr See Rx Instructions .ROUTE .COMPLEX Qty: 90 2RF Dose Instruction: TAKE 1/2 (ONE-HALF) TABLET BY MOUTH EVERY 12 HOURS Rx Instructions: TAKE 1/2 (ONE-HALF) TABLET BY MOUTH EVERY 12 HOURS furosemide 40 mg tablet See Rx Instructions .ROUTE .COMPLEX Qty: 90 1RF Dose Instruction: TAKE 1 TABLET BY MOUTH ONCE DAILY IN THE MORNING Rx Instructions: TAKE 1 TABLET BY MOUTH ONCE DAILY IN THE MORNING cyclobenzaprine 10 mg tablet See Rx Instructions .ROUTE .COMPLEX Qty: 180 1RF Dose Instruction: Take 1 tablet by mouth twice daily Rx Instructions: Take 1 tablet by mouth twice daily budesonide 1 mg/2 mL suspension for nebulization See Rx Instructions .ROUTE .COMPLEX Qty: 180 3RF Dose Instruction: INHALE ONE VIAL VIA NEBULIZER ONCE DAILY. RINSE AND SPIT Rx Instructions: INHALE ONE VIAL VIA NEBULIZER ONCE DAILY. RINSE AND SPIT atorvastatin 10 mg tablet See Rx Instructions .ROUTE .COMPLEX Qty: 90 1RF Dose Instruction: Take 1 tablet by mouth once daily Rx Instructions: Take 1 tablet by mouth once daily montelukast 10 mg tablet See Rx Instructions .ROUTE .COMPLEX Qty: 90 1RF Dose Instruction: Take 1 tablet by mouth once daily Rx Instructions: Take 1 tablet by mouth once daily Follow-up/Referrals: Nancy Pryor DO [Primary Care Provider, Family Practice] - 2 Days
[2025-01-03] MEDS: ONDANSETRON INJ 4 MG/2 ML VIAL IV PUSH (15:34)
[2025-01-03] MEDS: MECLIZINE HCL 25 MG TABLET PO (15:36)
[2025-01-03 15:37] LABS: Hematocrit 44.8 % (37.0-47.0); Hemoglobin 13.8 g/dL (12.0-15.0); Immature Granulocyte Percent A 0.3 % (0-0.5); Lymphocytes Absolute Auto 1.08 K/mm3 (0.9-3.2); Mean Corpuscular HGB Conc 30.8 g/dl (32-36); Mean Corpuscular Hemoglobin 26.5 pg (26-34); Mean Corpuscular Volume 86.2 fl (80-100); Nucleated Red Blood Cells Absolute Auto 0.000 K/mm3 (0.0-0.012); Nucleated Red Blood Cells Perc 0.0 % (0.0-0.2); Platelet Count Result 217 k/mm3 (150-375); Red Blood Count 5.20 M/mm3 (4.2-5.4); White Blood Count 6.8 K/mm3 (4.5-10.0)
[2025-01-03 15:50] LABS: Alanine Aminotransferase 15 U/L (6-35); Albumin Level 4.1 g/dL (3.5-5.1); Alkaline Phosphatase 98 U/L (38-126); Anion Gap 6 mmol/L (4-12); Aspartate Amino Transferase 26 U/L (14-36); Bilirubin,Total 0.4 mg/dL (0.2-1.3); Blood Urea Nitrogen 22 mg/dL (7-17); Calcium 9.5 mg/dL (8.4-10.2); Carbon Dioxide 39 mmol/L (22-30); Chloride 92 mmol/L (98-107); Estimated CRCL calculation 53 ml/min; Estimated Glomerular Filt Rate > 60; Glucose 164 mg/dL (65-110); Lipase 73 U/L (23-300); Potassium 4.1 mmol/L (3.4-5.0); Sodium 137 mmol/L (137-145); Total Protein 7.0 g/dL (6.3-8.2)
--- OUTSIDE RECORDS SUMMARY | 2025-01-03 15:53 | XMS_ITS | Clinical Summary ---
Author Organization [facility] Address [facility] [place] [address] Care Team Providers Care Curriculum Advisory Teacher Name Role Phone Angel Buckner MD Primary Care Provider [phone] Medications albuterol (2.5 MG/3ML) 0.083% nebulizer solution 01/14/2019 Active budesonide 0.25 MG/2ML nebulizer solution 01/14/2019 Active cyclobenzaprine 10 MG tablet 11/17/2018 Active furosemide 40 MG tablet 11/17/2018 Active ipratropium 0.02 % nebulizer solution 03/11/2019 Active metFORMIN ER 500 MG 24 hr tablet 11/17/2018 Act ralph metoprolol tartrate 100 MG tablet 02/21/2019 Active montelukast 10 MG tablet 01/14/2019 Active NYSTATIN 253771 UNIT/GM powder 03/02/2019 Acti ve ondansetron 4 MG tablet 01/16/2019 Active pantoprazole EC 40 MG tablet 02/21/2019 Active potassium chloride 20 MEQ packet 05/03/2018 Activ e theophylline ER 450 MG 12 hr tablet 05/13/2018 Active Active Problems Problem Noted Date Diagnosed Date Acute systolic congestive heart failure ([facility]) 03/26/2019 Essential hypertension 03/26/2019 Other hyperlipidemia 03/26/2019 Type 2 diabetes mellitus wit hout complication, with long-term current use of insulin ([facility]) 03/26/2019 Social History Tobacco Use Types Packs/Day Years Used Date Smoking Tobacco: Never Assessed Comments Unknown Sex and Gender Information Value Date Recorded Sex Assigned at Not on file Legal Sex Female 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 Gender Identity Not on file Sexual Orientation Not on file Last Filed Vital Signs Vital Sign Reading Time Taken Comments Blood Pressure 141/92 03/15/2019 3:03 PM LINE OUT WORK[employer] Pulse 87 03/15/2019 3:03 PM LINE OUT WORKER Temperature 36.9 C (98.4 F) 03/15/2019 3:03 PM LINE OUT WORKER Respiratory Rate 20 03/15/2019 3:03 PM LINE OUT WORKER Oxygen Saturation 92% 03/15/2019 3:03 PM LINE OUT WORKER Inhaled Oxygen Concentration - - Weight 87.7 kg (193 lb 6.4 oz) 03/15/2019 3:03 P M LINE OUT WORKER Height - - Body Mass Index - [...] COVID-19 Vaccine (1 - 2023-2 5 season) 2024 Meningococcal B Vaccine Aged Out No l onger eligible based on patient's age to complete this topic Meningococcal Vaccine Aged Out No maria esther janusz eligible based on patient's age to complete this topic RSV Immunizations Under 20 Months Aged Out No longer eligible based on patient's age to complete this topic Care Teams Curriculum Advisory Teacher Relationship Specialty [place] [address] [place] [address] PCP - General FAMILY PRACTICE 03/15/19
[2025-01-03 16:00] LABS: NT Pro B Type Natriuretic Pept 562 pg/mL (19.9-100); Troponin I < 0.012 ng/mL (0.000-0.034)
[2025-01-03] MEDS: diazePAM INJ (*CRX) 10 MG/2 ML SYRINGE 2.5 MG IV PUSH (16:03)
[2025-01-03] MEDS: ACETAMINOPHEN 325 MG TABLET 650 MG PO (16:04)
--- OUTSIDE RECORDS SUMMARY | 2025-01-03 16:30 | XMS_ITS | Clinical Summary ---
Author Organization [facility] Address [facility] [place] [address] Care Team Providers Care Turbine Engineer Name Role Phone Angel Buckner MD Primary Care Provider [phone] Medications albuterol (2.5 MG/3ML) 0.083% nebulizer solution 01/14/2019 Active budesonide 0.25 MG/2ML nebulizer solution 01/14/2019 Active cyclobenzaprine 10 MG tablet 11/17/2018 Active furosemide 40 MG tablet 11/17/2018 Active ipratropium 0.02 % nebulizer solution 03/11/2019 Active metFORMIN ER 500 MG 24 hr tablet 11/17/2018 Act ralph metoprolol tartrate 100 MG tablet 02/21/2019 Active montelukast 10 MG tablet 01/14/2019 Active NYSTATIN 717378 UNIT/GM powder 03/02/2019 Acti ve ondansetron 4 MG tablet 01/16/2019 Active pantoprazole EC 40 MG tablet 02/21/2019 Active potassium chloride 20 MEQ packet 05/03/2018 Activ e theophylline ER 450 MG 12 hr tablet 05/13/2018 Active Active Problems Problem Noted Date Diagnosed Date Acute systolic congestive heart failure ([facility]) 03/26/2019 Essential hypertension 03/26/2019 Other hyperlipidemia 03/26/2019 Type 2 diabetes mellitus wit hout complication, with long-term current use of insulin ([facility]) 03/26/2019 Social History Tobacco Use Types Packs/Day Years Used Date Smoking Tobacco: Never Assessed Comments Unknown Sex and Gender Information Value Date Recorded Sex Assigned at Not on file Legal Sex Female 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 Gender Identity Not on file Sexual Orientation Not on file Last Filed Vital Signs Vital Sign Reading Time Taken Comments Blood Pressure 141/92 03/15/2019 3:03 PM LACQUER SPRAY BOOTH OPERATOR Pulse 87 03/15/2019 3:03 PM LACQUER SPRAY BOOTH OPERATOR Temperature 36.9 C (98.4 F) 03/15/2019 3:03 PM LACQUER SPRAY BOOTH OPERATOR Respiratory Rate 20 03/15/2019 3:03 PM LACQUER SPRAY BOOTH OPERATOR Oxygen Saturation 92% 03/15/2019 3:03 PM LACQUER SPRAY BOOTH OPERATOR Inhaled Oxygen Concentration - - Weight 87.7 kg (193 lb 6.4 oz) 03/15/2019 3:03 P M LACQUER SPRAY BOOTH OPERATOR Height - - Body Mass Index - [...] age to complete this topic Care Teams Turbine Engineer Relationship Specialty [place] [address] [place] [address] PCP - General FAMILY PRACTICE 03/15/19
--- NOTE | 2025-01-03 17:56 | ECG_ITS ---
Test Date: 2025-01-03 18:05:00 Measurements Intervals [place] Rate: 75 P: 72 ID: [id number] QRS: 74 QRSD: 86 T: 110 QT: 386 QTc: 433 Interpretive Statements SINUS RHYTHM LOW QRS VOLTAGE IN PRECORDIAL LEADS MINIMAL Q WAVES- INFERIOR LEADS T WAVE ABNORMALITY IN HIGH LATERAL LEADS- CONSIDER ISCHEMIA BASELINE ARTIFACT- I, II, III, AVR, AVL, AVF, V1-V2 ABNORMAL ECG Compared to ECG 01/03/2025 15:05:54 NO SIGNIFICANT CHANGE Electronically Signed On 01-03-2025 18:56:05 CDT by Damir Ibarra D.O.
[2025-01-03 18:46] LABS: Troponin I < 0.012 ng/mL (0.000-0.034)
== END 2025-01-03 19:05 | disposition home or self-care (01) ==
PROVIDERS: Emergency Provider Emergency Medicine; PCP Family Medicine
DX: R42 Dizziness and giddiness (principal); M25.511 Pain in right shoulder; J44.9 Chronic obstructive pulmonary disease, unspecified; J96.11 Chronic respiratory failure with hypoxia; J96.12 Chronic respiratory failure with hypercapnia; I11.0 Hypertensive heart disease with heart failure; I50.9 Heart failure, unspecified; K44.9 Diaphragmatic hernia without obstruction or gangrene; K21.9 Gastro-esophageal reflux disease without esophagitis; K58.1 Irritable bowel syndrome with constipation; G62.9 Polyneuropathy, unspecified; H26.9 Unspecified cataract; Z96.651 Presence of right artificial knee joint; Z86.718 Personal history of other venous thrombosis and embolism; Z86.711 Personal history of pulmonary embolism; Z86.0100 Personal history of colon polyps, unspecified; Z87.440 Personal history of urinary (tract) infections; Z87.891 Personal history of nicotine dependence; Z79.84 Long term (current) use of oral hypoglycemic drugs; Z79.899 Other long term (current) drug therapy; Z79.01 Long term (current) use of anticoagulants; R94.31 Abnormal electrocardiogram [ECG] [EKG]
CPT/HCPCS: 36415; 71045; 73030; 80053; 83690; 83880; 84484; 85025; 93005; 94640; 96374; 96375; 99284; A9270; J2405; J3360

== ENCOUNTER 2025-01-18 12:30 | Outpatient (CLI) | payer MEDICARE, SELFPAY ==
[2025-01-18 13:14] LABS: Alveolar/Arterial O2 Gradient 18.3 mmHg; Carboxyhemoglobin 0.8 % THb (0-2.0); Fractional Inspired Oxygen 21 %; HCO3 ABG 30.6 mEq/l (22.0-26.0); Methemoglobin ABG 0.2 %THb (0-1.5); Oxygen Content ABG 17.9 %vol (16.0-22.0); Oxygen Saturation ABG 92.3 % (95.0-100.0); PCO2 ABG 54.2 mmHg (35.0-45.0); PO2 ABG 66.5 mmHg (80.0-100.0); PO2 FiO2 Ratio Arterial Blood 3.17 %; Reduced Hemoglobin 6.6 %THb (0-5.0)
[2025-01-18 13:21] LABS: Liters per Minute 0.0 LPM; Modified Allen's Test Pass; Site Drawn RIGHT RADIAL
--- NOTE | 2025-02-19 23:49 | WPDSIXMINUTE ---
Six Minute Walk Procedure Procedure Performed Pulmonary Stress Test (6 min walk) Six Minute Walk Six Minute Walk: DATE OF SERVICE: 01/18/2025 REQUESTING: Sudeep Josue APRN REASON FOR TESTING: dyspnea SIX MINUTE WALK This test was conducted per ATS guidelines. She walked while breathing room air, and she used a walking aid due to back and knee problems. The initial saturation was 98%, and initial heart rate was 80 bpm. The patient walked without stopping, completing 304.8 m / 1000 feet. The saturation at the end of testing was 97%, and the heart rate was 82 bpm. The lowest saturation during testing was 92%. The Prince score for fatigue and dyspnea was 3 initially, and 5 at the end of testing. IMPRESSION: This is a normal study. The patient did not require supplemental oxygen with exertion. Ann Delacruz MD
== END 2025-01-18 12:31 | disposition home or self-care (01) ==
LOC: ANHPFT 12:30
PROVIDERS: PCP Family Medicine; Visit Provider Nurse Practitioner Family
DX: J96.11 Chronic respiratory failure with hypoxia (principal); J96.12 Chronic respiratory failure with hypercapnia
CPT/HCPCS: 36600; 82375; 82805; 83050; 85018; 94618

== ENCOUNTER 2025-01-24 14:11 | Outpatient (CLI) | payer MEDICARE, SELFPAY ==
--- OUTSIDE RECORDS SUMMARY | 2008-06-14 08:45 | XMS_ITS | Continuity of Care Document ---
Author Organization [facility] Address [address] [place] [address] utive [facility] [address] [place] [address] Phone Care Team Providers Care Reverse Unit Operator Fisherman Name Role Phone Arshad OD, Jacob Unavailable Unavailable Procedures Procedure Date Eye Exam, New Patient Advance Directives Directive Yes / No Effective Date File Name No Information Encounters Encounter Description Practice Location Reason(s) For Visit Diagnoses Date Provider Providers Copied on Encounter [facility], [address] [place] [address] [address], [place], [place], [id number], [place] tel:[phone] [facility] [place] No Information 8-200 9 Arshad OD Jacob. [address] [facility] [place] , [address], [place], [address], [place]. tel:[phone] Referring Provider: Jareth Garcia MD [place], [address] [place] [address], [address]. tel:[phone] Family History Family Member Type Diagnosis Age At Onset No Information Payers Payer name Insurance type Covered democrat ID Authoriza tijairon(s) [facility] Commercial CI [id number] Social History Type Description Quantity Date Captured [...]
--- NOTE | ~2025-01-24 | MM_ITS ---
EXAMINATION: MM screening izabela BI w sami HISTORY: Screening TECHNIQUE: Craniocaudal and mediolateral oblique 3-D tomosynthesis images were obtained and synthetic 2-D images were generated. CAD analysis was submitted and interpreted. COMPARISON: 07/04/2016 BREAST PARENCHYMAL COMPOSITION: Not Dense: The breasts are almost entirely fatty. FINDINGS: There is no evidence of suspicious mass, calcification, or architectural distortion to suggest malignancy in either breast. There has been no suspicious interval change. IMPRESSION: 1. No mammographic evidence of malignancy. 2. Recommend routine screening mammography in one year. BI-RADS Category 1: Negative Reviewed, dictated and finalized at location B.
--- OUTSIDE RECORDS SUMMARY | 2025-01-24 16:30 | XMS_ITS | Clinical Summary ---
Author Organization [facility] Address [facility] [place] [address] Care Team Providers Care Judge Name Role Phone Angel Buckner MD Primary Care Provider [phone] Medications albuterol (2.5 MG/3ML) 0.083% nebulizer solution 01/14/2019 Active budesonide 0.25 MG/2ML nebulizer solution 01/14/2019 Active cyclobenzaprine 10 MG tablet 11/17/2018 Active furosemide 40 MG tablet 11/17/2018 Active ipratropium 0.02 % nebulizer solution 03/11/2019 Active metFORMIN ER 500 MG 24 hr tablet 11/17/2018 Act ralph metoprolol tartrate 100 MG tablet 02/21/2019 Active montelukast 10 MG tablet 01/14/2019 Active NYSTATIN 989167 UNIT/GM powder 03/02/2019 Acti ve ondansetron 4 MG tablet 01/16/2019 Active pantoprazole EC 40 MG tablet 02/21/2019 Active potassium chloride 20 MEQ packet 05/03/2018 Activ e theophylline ER 450 MG 12 hr tablet 05/13/2018 Active Active Problems Problem Noted Date Diagnosed Date Acute systolic congestive heart failure 03/26/20 19 Essential hypertension 03/26/2019 Other hyperlipidemia 03/26/2019 Type 2 diabetes mellitus wit hout complication, with long-term current use of insulin 03/26/2019 Social History Tobacco Use Types Packs/Day Years Used Date Smoking Tobacco: Never Assessed Comments Unknown Sex and Gender Information Value Date Recorded Sex Assigned at Not on file Legal Sex Female 8:42 AM ORGANIZATIONAL DEVELOPMENT CONSULTANT Gender Identity Not on file Sexual Orientation Not on file Last Filed Vital Signs Vital Sign Reading Time Taken Comments Blood Pressure 141/92 03/15/2019 3:03 PM ORGANIZATIONAL DEVELOPMENT CONSULTANT Pulse 87 03/15/2019 3:03 PM ORGANIZATIONAL DEVELOPMENT CONSULTANT Temperature 36.9 C (98.4 F) 03/15/2019 3:03 PM ORGANIZATIONAL DEVELOPMENT CONSULTANT Respiratory Rate 20 03/15/2019 3:03 PM ORGANIZATIONAL DEVELOPMENT CONSULTANT Oxygen Saturation 92% 03/15/2019 3:03 PM ORGANIZATIONAL DEVELOPMENT CONSULTANT Inhaled Oxygen Concentration - - Weight 87.7 kg (193 lb 6.4 oz) 03/15/2019 3:03 P M ORGANIZATIONAL DEVELOPMENT CONSULTANT Height - - Body Mass Index - [...] Scan (General) 09/30/2020 COVID-19 Vaccine (1 - 2024-2 6 season) 2024 Influenza Adult (#1) 2024 01/11/2018 Hepatitis A Vaccines Aged Out No long er eligible based on patient's age to complete this topic Meningococcal B Vaccine Aged Out No l onger eligible based on patient's age to complete this topic Meningococcal Vaccine Aged Out No maria esther janusz eligible based on patient's age to complete this topic RSV Immunizations Under 20 Months Aged Out No longer eligible based on patient's age to complete this topic Care Teams Judge Relationship Specialty [place] [address] [place] [address] PCP - General FAMILY PRACTICE 03/15/19
== END 2025-01-24 14:12 | disposition home or self-care (01) ==
LOC: ANHFOHIMG 14:14
PROVIDERS: PCP Family Medicine; Visit Provider Nurse Practitioner
DX: Z12.31 Encounter for screening mammogram for malignant neoplasm of breast (principal)
CPT/HCPCS: 77063; 77067